=== PATIENT | female | born 1950 | race Caucasian/White ===

== ENCOUNTER → 2019-12-13 14:37 | Outpatient (BNVA) | payer MEDICARE, OTHER, SELFPAY | PROVIDERS: Family Provider Family Medicine; PCP Family Medicine; Visit Provider Specialist | DX: G62.9 Polyneuropathy, unspecified (principal) | CPT/HCPCS: 99213 ==

== ENCOUNTER 2020-01-18 13:41 | Outpatient (CLI) | payer MEDICARE, OTHER, SELFPAY ==
--- NOTE | 2020-01-18 13:55 | XR_ITS ---
WS: [id number] CHEST 2 VIEWS HISTORY: COUGH COMPARISON: 11/24/2013 Lungs: Lung volumes are slightly decreased. There is very slight thickening of the interstitium consi stent with vascular congestion which is new since the prior study. No pneumonia. No pleural effusion. Cardiac size: Normal. Mediastinum/Aorta: Mild atherosclerosis aorta. Bones: Slight increase in thoracic kyphosis. XR/XR chest 2V* [id number] IMPRESSION: Very slight increase in interstitial edema since the prior study.
== END 2020-01-18 13:42 | disposition home or self-care (01) ==
LOC: RADWPI 13:45
PROVIDERS: Family Provider Family Medicine; PCP Family Medicine; Visit Provider Family Medicine
DX: R05 Cough (principal)
CPT/HCPCS: 71046

== ENCOUNTER 2020-02-08 09:48 | Outpatient (CLI) | payer MEDICARE, OTHER, SELFPAY ==
--- NOTE | 2020-02-08 | USCV_ITS ---
Sara Joiner Age: 69 Gender: F : 1950 Exam Date: 02/08/2020 10:16 Ordering Phys: Agnes Alfaro MD Technologist: Mohit Brice Exam Location: [facility] [place] Indication: EDEMA BP: 147 / 80 HR: 89 Rhythm: Sinus Technical Quality: Adequate MEASUREMENTS (Male / Female) Normal Values 2D ECHO LV Diastolic Diameter PLAX 3.3 cm 4.2 - 5.9 / 3.9 - 5.3 cm LV Systolic Diameter PLAX 2.4 cm IVS Diastolic Thickness 1.3 cm 0.6 - 1.0 / 0.6 - 0.9 cm IVS Systolic Thickness 1.7 cm LVPW Diastolic Thickness 1.1 cm 0.6 - 1.0 / 0.6 - 0.9 cm LVPW Systolic Thickness 1.7 cm LVOT Diameter 2.0 cm LV Ejection Fraction 2D Teich 56.4 % LV Ejection Fraction MOD 2C 82.3 % LV Ejection Fraction 2C AL 82.8 % LA Diameter 4.3 cm LA Width 3.1 cm LA Height 4.3 cm RA Width 3.5 cm RA Height 3.7 cm Aorta at Sinotubular Diameter 2.4 cm M-MODE LV Diastolic Diameter MM 4.3 cm 4.2 - 5.9 / 3.9 - 5.3 cm LV Systolic Diameter MM 2.6 cm LV Ejection Fraction MM Teich 70.4 % IVS Diastolic Thickness MM 1.1 cm 0.6 - 1.0 / 0.6 - 0.9 cm IVS Systolic Thickness MM 2.0 cm LVPW Diastolic Thickness MM 1.1 cm 0.6 - 1.0 / 0.6 - 0.9 cm LVPW Systolic Thickness MM 1.8 cm RV Diastolic Diameter MM 1.1 cm Aortic Annulus Diameter 3.1 cm LA Ao Ratio MM 1.4 MV E Point Septal Separation 0.5 cm DOPPLER AV Peak Velocity 155.0 cm/s LVOT Peak Velocity 147.0 cm/s AV Area Cont Eq vti 3.1 cm squared AV Area Cont Eq pk 2.9 cm squared MV Area PHT 5.0 cm squared Mitral E to A Ratio 0.9 MV E' Velocity 10.0 cm/s Mitral E to MV E' Ratio 16.3 Mitral E to LV E' Lateral Ratio 13.1 Mitral E to LV E' Septal Ratio 21.8 TR Peak Velocity 121.0 cm/s TR Peak Gradient 5.9 mmHg TV Peak E Velocity 88.0 cm/s Right Atrial Pressure 3.0 mmHg Pulmonary Artery Systolic Pressu 8.9 mmHg FINDINGS Left Ventricle Normal left ventricular size, systolic function and wall thickness, with no regional wall motion abnormalities. Grade I/IV diastolic dysfunction (abnormal relaxation filling pattern), normal to mildly elevated filling pressures. Left ventricular ejection fraction is estimated at 65%. Right Ventricle Normal right ventricular size and systolic function. Normal right ventricular systolic pressure. Right Atrium The right atrium is normal in size. Left Atrium Mildly increased left atrial size. Mitral Valve Structurally normal mitral valve without significant stenosis or prolapse. There is no mitral regurgitation. Aortic Valve Structurally normal aortic valve without significant sclerosis or stenosis. There is no aortic regurgitation. Tricuspid Valve Structurally normal tricuspid valve without significant stenosis or regurgitation. Pulmonary artery systolic pressure is normal. Pulmonic Valve Pulmonic valve not well visualized. Pericardium Normal pericardium without effusion. Aorta Normal ascending aorta dimension. CONCLUSIONS Normal left ventricular size, systolic function and wall thickness, with no regional wall motion abnormalities. Grade I/IV diastolic dysfunction (abnormal relaxation filling pattern), normal to mildly elevated filling pressures. Left ventricular ejection fraction is estimated at 65%. Mildly increased left atrial size. No change from the previous echo done 09/04/2014 Dr. Saúl Carballo MD (Electronically Signed) Final Date: 08 Feb 2020 11:56 S
== END 2020-02-08 09:49 | disposition home or self-care (01) ==
LOC: RAD 09:52
PROVIDERS: PCP Family Medicine; Visit Provider Family Medicine
DX: I51.81 Takotsubo syndrome (principal); R60.9 Edema, unspecified; R05 Cough
CPT/HCPCS: 93306

== ENCOUNTER 2020-02-21 12:58 | Outpatient (CLI) | payer MEDICARE, OTHER, SELFPAY ==
--- NOTE | 2020-02-21 13:32 | XR_ITS ---
WS: [id number] KNEE LEFT TECHNIQUE: 3 views of the left knee CLINICAL INFORMATION: PAIN IN LEFT KNEE COMPARISON: None. FINDINGS: Normal anatomic alignment. Mild joint space narrowing medial joint compartment. Hypertrophic changes along the joint line. Mild soft tissue edema. Moderate narrowing at the patellofemoral articulation. Small suprapatellar effusion.. XR/XR knee LT 3V* [id number] IMPRESSION: Mild to moderate degenerative arthritis worse involving the medial joint compar tment and patellofemoral articulation.
== END 2020-02-21 12:59 | disposition home or self-care (01) ==
LOC: RAD 13:04
PROVIDERS: Family Provider Family Medicine; PCP Family Medicine; Visit Provider Family Medicine
DX: M25.562 Pain in left knee (principal); M17.12 Unilateral primary osteoarthritis, left knee
CPT/HCPCS: 73562

== ENCOUNTER → 2020-03-20 13:09 | Outpatient (BNVA) | payer MEDICARE, SELFPAY | PROVIDERS: Family Provider Family Medicine; PCP Family Medicine; Visit Provider Specialist | DX: G62.9 Polyneuropathy, unspecified (principal) | CPT/HCPCS: 99213 ==

== ENCOUNTER 2020-07-16 12:02 | Outpatient (CLI) | payer MEDICARE, SELFPAY ==
--- NOTE | 2020-07-16 12:09 | MM_ITS ---
WS: [id number] BILATERAL DIGITAL DIAGNOSTIC MAMMOGRAM MAMMOGRAPHY WITH CAD CLINICAL INFORMATION: HX OF BREAST CA COMPARISON: TECHNIQUE: Bilateral CC, MLO, and ML views. FINDINGS: Scattered fibroglandular densities bilaterally. Prior postoperative changes lumpectomy with parenchym al fibrosis central posterior right breast. This is unchanged in appearance. Associated dystrophic ca lcifications at the lumpectomy site. New punctate calcifications along the posterior margin of the lumpectomy site right breast. This appe ars new from the prior examinations. Recommend spot compression magnification views. Left breast is u nremarkable and unchanged. MM/[place] [id number] IMPRESSION: BI-RADS: 0-Incomplete: Need additional imaging evaluation FOLLOW UP: Need Additional Imaging RECOMMEND SPOT COMPRESSION MAGNIFICATION VIEWS RIGHT BREAST
== END 2020-07-16 12:03 | disposition home or self-care (01) ==
LOC: RADSHAW 12:07
PROVIDERS: PCP Family Medicine; Visit Provider Family Medicine
DX: Z85.3 Personal history of malignant neoplasm of breast (principal); R92.1 Mammographic calcification found on diagnostic imaging of breast
CPT/HCPCS: 77066

== ENCOUNTER 2020-07-17 06:03 | Outpatient (CLI) | payer MEDICARE, SELFPAY ==
--- NOTE | 2020-07-21 13:30 | ONC FU_ITS ---
Dr. Luna Patient Follow-Up Note Patient: Sara Joiner Unit #: [id number]: 1950 Dicatated By: Ozzie Luna M.D.Date of Visit:Jul 17, 2020 Onc Med Follow-up/Prog Note Chief Complaint: Breast cancer. History of Present Illness: This is a 70 year-old woman with grade 2 infiltrating ductal carcinoma of the right breast, stage IA (T1c, N0, M0), ER/MS positive and HER-2/steve also positive by IHC (3+). She presented with abonormal routine screening mammogram from 08/19/2013. An ultrasound-guided biopsy showed a high-grade infiltrating ductal carcinoma, ER positive at 100% and MS positive at 89%. HER-2/steve was 3+ by IHC, FISH only 1.3. On 11/04/2013 she underwent lumpectomy and axillary sentinel lymph node biopsy by Dr. Bro. Her surgical pathology showed grade 2 infiltrating ductal carcinoma measuring 1.6 x 1.3 cm, with lymphovascular invasion; anterior margins were positive. Two sentinel lymph nodes were negative for metastatic disease. On 11/11/2013 she had a re-resection with no additional tumor identified. Her staging bone scan on 11/18/2013 was negative. She received 6 cycles of adjuvant systemic chemotherapy with Taxotere, Carboplatin and Herceptin from 12/05/2013 to 03/20/2014. Her treatment was complicated with significant asthenia, worsening arthralgias, grade 1-2 peripheral neuropathy, and peripheral edema. For onycholysis she underwent surgical nail removal. She continued on Herceptin alone on 03/27/2014, and she also began adjuvant hormonal therapy with anastrozole. Adjuvant radiation treatment to the breast to 5940 cGy was completed on 06/02/2014. On 04/08/2014 she had syncopal episode while at work. MRI of the brain on 04/18/2014 showed calcified extra-axial lesion, possibly representing meningioma or dural vascular malformation. She established care with Dr. Hightower, neurosurgeon. Echocardiogram on 09/04/14 showed EF 72%. She underwent bilateral breast plastic surgery reconstruction on 04/10/2015 with the right mastoplexy and the left mastoplasty. Pathology was benign. She completed her full year of Herceptin therapy on 11/13/2014. I had seen her for a follow-up visit on 05/06/2016. At that time she was having significant musculoskeletal pain and fatigue, and I did have her stop the Arimidex. As her symptoms did not improve significantly, she restarted it in June 2016. During her subsequent follow-up, she was able to tolerate it with acceptable toxicity. She stopped Arimidex again in May 2019, as she had completed 5 years of treatment. Her other medical illnesses include degenerative arthritis, fibromyalgia, and psoriasis. She has a history of colonic polyps. She is a nonsmoker. INTERIM HISTORY: She is seen for a followup visit. She has been feeling pretty good generally. Her main complaint is that she had fallen out of bed 8 weeks ago and she had subsequently developed redness in both legs. She says her energy is not like it should be, but she is able to do light work. ECOG score is 1. She has good appetite. She has not had fever. She does have some night sweating. She is kind of short of breath, and she has nonproductive cough. She occasionally has fluttering in her heart. Her stomach sometimes feels queasy. She has no other GI complaints. She has urinary frequency with some urgency/incontinence. She reports having catches in her neck. She also has had a burning feeling in her right lower leg. She has persistent numbness/tingling in her hands. Medications: Aspirin 1 Tablet (of 81 mg) Tablet, enteric coated Oral daily, B Complex 1 Tablet Oral daily, busPIRone HCl 1 Tablet (of 10 mg) Oral b.i.d., Calcium + D 1 (600-400 mg - Units) Tablet Oral b.i.d., Cranberry 1 Tablet Capsule Oral daily, Cymbalta 2 Capsule (of 60 mg) Capsule Delayed Release Particles Oral daily, Fiber 1 Tablet Capsule Oral daily, Furosemide 1 Tablet (of 20 mg) Oral daily, Gabapentin 1 (300 mg) Tablet Oral four times a day, Glucosamine Chondr 1500 Complx Capsule Oral daily, Klor-Con 10 1 Tablet (of 10 meq) Tablet, controlled release Oral b.i.d., MagOx 400 1 (400 (241.3 mg) mg) Tablet Oral b.i.d., MiraLax Pack Take 1 Oral daily, Multivitamin Adult 1 Tablet Oral daily, Naproxen 1 Tablet (of 500 mg) Oral b.i.d., Rochelle 3 1 Capsule Oral daily, tiZANidine HCl 1 Tablet (of 2 mg) Oral at bedtime, TraMADol HCl 2 (50 mg) Tablet Oral t.i.d. PRN, Triamcinolone Acetonide 1 (0.1 %) Cream Topical PRN Allergies: No Known Allergies. Review of Systems: Constitutional - Her energy is not like it should be, but she is able to do light work at home. Her appetite is good. She has not had fever. She sometimes has sweating at night. ECOG score is 1, ENMT - She has sinus congestion/drainage. No mouth sores. No sore throat or difficulty swallowing, Hematologic/Lymphatic - No abnormal bruising or bleeding, Respiratory - She has kind of short of breath at times, and she has nonproductive cough. No pleuritic pain or hemoptysis, Cardiovascular - No angina pain. She occasionally has heart fluttering, Gastrointestinal - She does not have nausea, but she sometimes feels queasy. No heartburn or acid reflux. No diarrhea or constipation. No blood in the stool or black stools, Genitourinary (F) - No dysuria or hematuria. She has urinary frequency with some urgency/incontinence, Musculoskeletal - She has catches in her neck she also reports having a burning feeling in her lower right leg, Integumentary - She has developed red spots on both legs, Neurologic - No headache or dizziness. She has some numbness in her hands. No other focal neurologic symptoms, Psychiatric - No anxiety or depression. No insomnia. Vital Signs: Performed on Jul 17, 2020 14:12 Height - 65.00 in Weight - 220.2 lbs (HIGH) BSA - 2.06 sq.m BMI - 36.64 (HIGH) Temperature - 98.5 F Pulse - 93 /min Respiration - 24 /min BP - 197/69 mm(hg) (HIGH) O2 Sat - 97 % Pain - 0 Physical Examination: Constitutional - She looks pretty good generally, Eyes - Sclerae nonicteric. Conjunctivae clear, ENMT - No lesions noted in the oral cavity, Hematologic/Lymphatic - No cervical, clavicular, or axillary adenopathy, Respiratory - Lungs sound clear. She has good air movement bilaterally, Cardiovascular - Heart rhythm is regular. There is no murmur, gallop, or rub noted, Abdomen - Soft. Liver and spleen are not enlarged. There is no abdominal mass or ascites noted and there is no inguinal adenopathy, Extremities - Trace edema. Dorsalis pedis pulses are palpable bilaterally, Integumentary - There is mild erythema in the lower anterior tibial area bilaterally, more prominent on the right. There are 2 small, slightly raised and palpable erythematous lesions in the right mid to upper anterior tibial area. The appearance is consistent with an inflammatory process, Neurologic - No focal neurologic deficits noted. Impression: 1. Patient with grade 2 infiltrating ductal carcinoma the right breast, stage IA (T1c, N0, M0), ER/MS positive and HER-2/steve positive by IHC. Her initial treatment included lumpectomy with axillary sentinel lymph node biopsy on 11/04/2013 followed by a negative reexcision lumpectomy on 11/11/2013. 2. She was then given adjuvant chemotherapy with 6 cycles of TCH, completed in March 2014. She then completed a full 52 weeks of Herceptin therapy. 3. She completed adjuvant radiation to the right breast on 06/02/2014, and she also began adjuvant hormonal therapy with anastrozole. It was stopped in May 2019 after completing 5 years of treatment. 4. She underwent bilateral breast plastic surgery reconstruction on 04/10/2015. Her other medical illnesses include: 5. Degenerative arthritis and fibromyalgia with chronic pain. 6. Psoriasis. During her follow-up she has continued to have some chronic fatigue. Recently she has had some redness in both legs, and she also has 2 inflammatory appearing lesions in the mid to upper anterior tibial area on the right. Overall, though, she appears to be doing well clinically with no evidence of recurrence of the breast cancer. Plan: She remains on observation/expectant management for the breast cancer. She will be given Augmentin 875 mg twice daily for 7 days what appears to be some cellulitis in her legs. I will see her again in 1 year, or sooner as needed. Signed By: Ozzie Luna M.D. <<Signature on File>>
== END 2020-07-17 06:04 | disposition home or self-care (01) ==
LOC: ONCMED 06:05
PROVIDERS: PCP Family Medicine; Visit Provider Internal Medicine Medical Oncology
DX: Z08 Encounter for follow-up examination after completed treatment for malignant neoplasm (principal); Z85.3 Personal history of malignant neoplasm of breast; M19.90 Unspecified osteoarthritis, unspecified site; M79.7 Fibromyalgia; G89.29 Other chronic pain; L40.9 Psoriasis, unspecified; Z92.3 Personal history of irradiation; R53.82 Chronic fatigue, unspecified
CPT/HCPCS: G0463

== ENCOUNTER 2020-08-02 13:02 | Outpatient (CLI) | payer MEDICARE, SELFPAY ==
--- NOTE | 2020-08-02 11:30 | MM_ITS ---
WS: [id number] RIGHT DIGITAL MAMMOGRAPHY WITH CAD CLINICAL INFORMATION: New calcification along posterior margin of lumpectomy RT COMPARISON: July 16, 2020 and TECHNIQUE: 3 views of the right breast were obtained. FINDINGS: Scattered fibroglandular densities of the right breast. Prior postoperative changes lumpectomy with p arenchymal fibrosis central right breast is unchanged. Punctate and lucent centered calcifications. B enign fat necrosis. Punctate calcifications along the posterior margin of the lumpectomy site have a benign punctate and lucent centered appearance. Recommend return to annual diagnostic mammography MM/[place] [id number] IMPRESSION: BI-RADS: 2-Benign FOLLOW UP: 1 Year Follow-up Recommend return to annual diagnostic mammography.
== END 2020-08-02 13:03 | disposition home or self-care (01) ==
LOC: RADSHAW 13:06
PROVIDERS: PCP Family Medicine; Visit Provider Family Medicine
DX: R92.8 Other abnormal and inconclusive findings on diagnostic imaging of breast (principal)
CPT/HCPCS: 77065

== ENCOUNTER 2020-11-22 10:57 | Observation (INO) | payer MEDICARE, SELFPAY ==
[2020-11-22] VITALS (10 sets, daily range): BP systolic 153–224; BP diastolic 83–118; PULSE 71–105; RESP 17–24; TEMP 36.2–36.6; O2SAT 93–97; BMI 36.7
--- NOTE | 2020-11-22 11:30 | ECG_ITS ---
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 Measurements Intervals [place] Rate: 85 P: 79 PA: 164 QRS: 16 QRSD: 89 T: 83 QT: 376 QTc: 449 Interpretive Statements SINUS RHYTHM Compared to ECG 06/10/2018 09:30:07 No significant changes Electronically Signed On 11-22-2020 17:13:34 INSPECTION ENGINEER by Tal Riojas M.D. [id number]
--- NOTE | 2020-11-22 11:30 | CT_ITS ---
WS: [id number] CT HEAD TECHNIQUE: Noncontrast CT of the head obtained from the skullbase to the vertex. CLINICAL INFORMATION: Symptoms of Acute Stroke COMPARISON: 01 23,017 DLP: 954.[address] scans at [facility] use at least one of these dose optimization techniques: automat ed exposure control; mA and/or kV adjustment per patient size (includes targeted exams where dose is matched to clinical indication); or iterative reconstruction. FINDINGS: No evidence of intracranial hemorrhage or mass effect. Ventricular system and basal cisterns are nt. Mild small vessel changes with mild parenchymal volume loss. No extra-axial fluid collections. No rmal mehta-white differentiation. Stable right middle cranial fossa meningioma measuring 1.7 x 0.5 cm is unchanged. Paranasal sinuses and mastoid air cells are well aerated. .Normal visualized soft tissues. CT/CT head wo con* [id number] IMPRESSION: 1. No evidence of intracranial hemorrhage or mass effect. 2. Mild small vessel changes. Mild parenchymal volume loss. 3. Stable calcified right middle cranial fossa meningioma is unchanged. 4. No acute intracranial findings. Notified Juliann Joiner MD at 11/22/2020 12:24 PM.
--- NOTE | 2020-11-22 11:36 | W.ED.NEUROSD ---
HPI - Neuro Symptoms/Deficit General: Chief Complaint: Neuro Symptoms/Deficit Stated Complaint: Lt side Numbness Time Seen by Provider: 11/22/20 11:11 Source: patient Mode of arrival: ambulatory Limitations: no limitations History of Present Illness: HPI Narrative: 70-year-old female with no prior history of stroke developed left sided numbness and weakness suddenly around 7 AM this morning?mainly the left side of her face, her left leg. She got up to go to the bathroom to look at her face, felt like her left leg was not moving properly, but she did not fall. She looked in the mirror and did not notice any drooping. The symptoms then went away after a few minutes. Later about an hour before arriving at the ED she developed symptoms again, this time with dizziness as well. No visual change. No nausea or vomiting. Currently she is describing paresthesias of her left leg and arm. No headache. Her blood pressure is much higher than usual. No recent medication changes. She does have a history of peripheral neuropathy from chemotherapy. Onset (ago): hour(s) Associated symptoms: Deny chest pain, headache(s), nausea or vomiting Review of Systems Const: Denies: fever(s), chills, body aches, change in appetite or change in weight Eyes: Denies: change in vision, blurry vision or blind spots ENMT: Denies: nasal congestion Card: Denies: chest pain, palpitations or irregular heart rhythm Resp: Denies: dyspnea, productive cough or non-productive cough GI: Denies: abdominal pain, nausea or vomiting : Denies: difficulty voiding, dysuria or urinary frequency Musc: Reports: joint pain, joint stiffness, limited range of motion and muscle weakness; Denies: neck pain, back pain, extremity pain or extremity swelling Skin/Breast: Reports: rash, pruritus and erythema Neuro: Reports: numbness in extremities, weakness in extremities, difficulty walking and dizziness; Denies: headache(s), frequent falls, confusion, behavioral changes, Slurred speech present, difficulty communicating thoughts or restless legs [facility] PFSH: Medical History (Updated 11/22/20 @ 14:40 by Juliann Joiner MD) Depression Dyspnea History of breast cancer Peripheral edema Peripheral neuropathy Radiation fibrosis Surgical History (Updated 11/22/20 @ 14:34 by Aneesh Styles MD) History of breast surgery History of lumpectomy History of tonsillectomy Family History Other Cancer Diabetes Hypertension Stroke Denies family history of CAD (coronary artery disease) Social History (Updated 11/22/20 @ 14:34 by Aneesh Styles MD) Smoking and tobacco status: never smoked Alcohol intake: current Alcohol intake frequency: holidays/special occasions only Substance/Drug Use: never Housing: House History of recent travel: No NIH stroke score NIHSS: Level Of Consciousness - 1a: 0 Level Of Consciousness Questions - 1b: Both Correct Level Of Consciousness Commands - 1c: Both Correct Best Gaze - 2: Normal Visual [place] - 3: No Visual Loss Facial Palsy - 4: Normal Motor Arm Right - 5: No Drift Motor Arm Left - 5: No Drift Motor Leg Right - 6: No Drift Motor Leg Left - 6: No Drift Limb Ataxia - 7: Absent Sensory - 8: Mild To Moderate Loss Best Language - 9: No Aphasia Dysarthia - 10: Normal Extinction And Inattention - 11: 0 Score: Total Score: 1 Physical Exam Const: COMMON NORMALS: no acute distress, patient oriented x3 and alert EXAM LIMITATIONS: altered mental status GENERAL APPEARANCE: cooperative, comfortable and anxious; not in distress and not ill appearing ORIENTATION/CONSCIOUSNESS: Yes awake, Yes oriented to person and Yes oriented to place HENMT: COMMON NORMALS: normocephalic and atraumatic HEAD & SCALP: normocephalic and atraumatic FACE & SINUS: normal facial exam Eye: COMMON NORMALS: Equal, round and reactive pupils present, EOMs intact bilaterally, conjunctivae normal and no scleral icterus GENERAL EYE: appearance normal, both eyes and all related structures ALIGNMENT: Yes alignment normal PERIORBITAL: periorbital findings normal CONJUNCTIVA: Yes conjunctivae normal PUPIL: Yes Equal, round and reactive pupils present Neck/C-Spine: COMMON NORMALS: full ROM, no lymphadenopathy and supple Lymph: LYMPHATIC: no lymphadenopathy noted Resp: COMMON NORMALS: normal respiratory effort, No retractions and No use of accessory muscles EFFORT & INSPECTION: Yes able to speak in complete sentences Cardio: COMMON NORMALS: regular rate, regular rhythm, S1 normal heart sound present and S2 normal heart sound present RATE: regular rate RHYTHM: regular rhythm HEART SOUNDS: S1 normal heart sound present and S2 normal heart sound present GI: COMMON NORMALS: Normal to inspection, nondistended, normoactive bowel sounds present, Soft to palpation and non-tender AUSCULTATION: Yes normoactive bowel sounds PALPATION: Yes Soft to palpation Neuro: COMMON NORMALS: patient oriented x3, CN's II-XII intact bilaterally, moves all extremities and no focal motor deficits SENSORIUM/ORIENTATION: Yes alert, Yes oriented to person and Yes oriented to place COORDINATION/BALANCE: [id number] test normal SPEECH: speech normal COORDINATION: [id number] test normal Psych: COMMON NORMALS: mental status grossly normal, Normal thought process present, cooperative, normal affect and speech normal SPEECH: Yes normal speech THOUGHT PROCESS: Normal thought process present Course Vital Signs: Vital signs: Vital Signs Temperature 97.8 F 11/22/20 11:04 Pulse Rate 72 11/22/20 14:52 Respiratory Rate 20 H 11/22/20 14:52 Blood Pressure 169/104 11/22/20 14:52 Pulse Oximetry 96 11/22/20 14:52 MDM - Neuro Symptoms/Deficit MDM Narrative: Medical decision making narrative: 70-year-old female with acute onset left facial and extremity sensory and motor changes this morning at 7 AM, mostly resolved by the time of presentation. Hypertensive 213/113, heart rate [address] head negative for any acute hemorrhage or mass. Full dose aspirin 325 mg administered. CBC and chemistry normal. UA clear CTA head and neck negative for any clinically significant occlusive disease. Consulted with Dr. Goodwin, stroke neurologist at [facility], who evaluated the patient as well. He recommends admission for basic TIA work-up, including an MRI because of her history of breast cancer. Permissive hypertension?SBP up to 220 acceptable over the next 24 to 48 hours. Discussed the case with , who accepts the admission for TIA work-up. Differential Diagnosis: Neuro Differential Diagnosis: Likely peripheral neuropathy, cerebrovascular accident, multiple sclerosis and transient cerebral ischemia Medical Records: Attestation: I reviewed the patient's medical records. Lab Data: Attestation: I reviewed the patient's lab results. Labs: Lab Results 11/22/20 11/22/20 11/22/20 Range/Units 11:17 11:17 11:17 WBC 7.8 (4.0-10.0) 10^3/ uL RBC 5.18 (4.1-5.3) 10^6/u L Hgb 15.2 (11.5-15.3) g/dL Hct 46.2 (37.0-47.0) % MCV 89.2 (81-99) fL MCH 29.3 (28.0-34.0) pg MCHC 32.9 (30.0-36.0) g/dL RDW 13.4 (12.1-15.1) % Plt Count 327 (130-400) 10^3/c mm MPV 8.8 (7.4-10.4) fL Neut % (Auto) 62.8 % Lymph % (Auto) 23.8 % [place] % (Auto) 7.7 % Eos % (Auto) 4.5 % Baso % (Auto) 1.1 % Neut # (Auto) 4.92 (1.8-7.7) 10^3/u L Lymph # (Auto) 1.9 (0.8-4.8) 10^3/u L [place] # (Auto) 0.6 (0.2-0.9) 10^3/u L Eos # (Auto) 0.4 (0.0-0.8) 10^3/u L Baso # (Auto) 0.1 (0.0-0.1) 10^3/u L Nucleated RBC % (a uto) 0 % Nucleated RBCs # 0.0 /100WBC PT 13.50 (12.1-14.9) SECO NDS INR 1.00 (0.8-1.2) APTT 28.1 (23.9-36.7) SECO NDS Sodium 140 (136-145) mmol/L Potassium 4.0 (3.5-5.1) mmol/L Chloride 103 (98-107) mmol/L Carbon Dioxide 29 (22-29) mmol/L Anion Gap 12.0 (5-19) BUN 22 (8-23) mg/dL Creatinine 0.8 (0.5-0.9) mg/dL GFR Calculation 71.3 L (90-130) mL/min Glucose 95 (65-115) mg/dL POC Glucose (70-110) mg/dL Calculated Osmolal ity 293 (285-295) mOsm/k g Calcium 9.4 (8.5-10.5) mg/dL Magnesium 1.9 (1.7-2.3) mg/dL Total Bilirubin 0.3 (0.15-1.2) mg/dL AST 26 (0-32) U/L ALT 25 (0-33) U/L Alkaline Phosphata se 98 (35-105) IU/L Total Protein 7.5 (6.6-8.7) g/dL Albumin 4.3 (3.5-5.2) g/dL Globulin 3.2 (1.3-4.6) g/dL Urine Color (Yellow) Urine Appearance (CLEAR) Urine pH (5-7) Ur Specific Gravit y (1.005-1.030) Urine Protein (Negative) Urine Glucose (UA) (Normal) Urine Ketones (Negative) Urine Blood (Negative) Urine Nitrate (Negative) Urine Bilirubin (Negative) Urine Urobilinogen (Negative) mg/dL Ur Leukocyte Xena ase (Negative) 11/22/20 11/22/20 Range/Units 11:41 12:12 WBC (4.0-10.0) 10^3/ uL RBC (4.1-5.3) 10^6/u L Hgb (11.5-15.3) g/dL Hct (37.0-47.0) % MCV (81-99) fL MCH (28.0-34.0) pg MCHC (30.0-36.0) g/dL RDW (12.1-15.1) % Plt Count (130-400) 10^3/c mm MPV (7.4-10.4) fL Neut % (Auto) % Lymph % (Auto) % [place] % (Auto) % Eos % (Auto) % Baso % (Auto) % Neut # (Auto) (1.8-7.7) 10^3/u L Lymph # (Auto) (0.8-4.8) 10^3/u L [place] # (Auto) (0.2-0.9) 10^3/u L Eos # (Auto) (0.0-0.8) 10^3/u L Baso # (Auto) (0.0-0.1) 10^3/u L Nucleated RBC % (a uto) % Nucleated RBCs # /100WBC PT (12.1-14.9) SECO NDS INR (0.8-1.2) APTT (23.9-36.7) SECO NDS Sodium (136-145) mmol/L Potassium (3.5-5.1) mmol/L Chloride (98-107) mmol/L Carbon Dioxide (22-29) mmol/L Anion Gap (5-19) BUN (8-23) mg/dL Creatinine (0.5-0.9) mg/dL GFR Calculation (90-130) mL/min Glucose (65-115) mg/dL POC Glucose 124 H (70-110) mg/dL Calculated Osmolal ity (285-295) mOsm/k g Calcium (8.5-10.5) mg/dL Magnesium (1.7-2.3) mg/dL Total Bilirubin (0.15-1.2) mg/dL AST (0-32) U/L ALT (0-33) U/L Alkaline Phosphata se (35-105) IU/L Total Protein (6.6-8.7) g/dL Albumin (3.5-5.2) g/dL Globulin (1.3-4.6) g/dL Urine Color Yellow (Yellow) Urine Appearance Clear (CLEAR) Urine pH 5 (5-7) Ur Specific Gravit y 1.015 (1.005-1.030) Urine Protein Neg (Negative) Urine Glucose (UA) Norm (Normal) Urine Ketones Negative (Negative) Urine Blood Neg (Negative) Urine Nitrate Negative (Negative) Urine Bilirubin Neg (Negative) Urine Urobilinogen Norm (Negative) mg/dL Ur Leukocyte Xena ase Negative (Negative) Discharge Plan Discharge Patient Disposition: Admitted As Inpatient Admit Provider: Aneesh Styles Clinical Impression: TIA (transient ischemic attack), Hypertensive urgency Condition: Stable Coding Level of Care Code ED Chemical Instrumentation Officer for Chg Fwd Exam Comprehensive
[2020-11-22 11:41] LABS: Basophils # 0.1 10^3/uL (0.0-0.1); Basophils % 1.1 %; Eosinophils # 0.4 10^3/uL (0.0-0.8); Eosinophils % 4.5 %; Hematocrit 46.2 % (37.0-47.0); Hemoglobin 15.2 g/dL (11.5-15.3); Lymphocytes # 1.9 10^3/uL (0.8-4.8); Lymphocytes % 23.8 %; Mean Corpuscular HGB Conc 32.9 g/dL (30.0-36.0); Mean Corpuscular Hemoglobin 29.3 pg (28.0-34.0); Mean Corpuscular Volume 89.2 fL (81-99); Mean Platelet Volume 8.8 fL (7.4-10.4); Monocytes # 0.6 10^3/uL (0.2-0.9); Monocytes % 7.7 %; Neutrophils # 4.92 10^3/uL (1.8-7.7); Neutrophils % 62.8 %; Nucleated Red Blood Cells % 0 %; Platelet Count 327 10^3/cmm (130-400); Red Blood Count 5.18 10^6/uL (4.1-5.3); Red Cell Distribution Width 13.4 % (12.1-15.1); White Blood Count 7.8 10^3/uL (4.0-10.0)
[2020-11-22 11:45] LABS: Glucose Point of Care 124 mg/dL (70-110)
[2020-11-22 11:48] LABS: Partial Thromboplastin Time 28.1 SECONDS (23.9-36.7)
[2020-11-22 11:52] LABS: Alanine Aminotransferase 25 U/L (0-33); Albumin Level 4.3 g/dL (3.5-5.2); Alkaline Phosphatase 98 IU/L (35-105); Aspartate Amino Transferase 26 U/L (0-32); Blood Urea Nitrogen 22 mg/dL (8-23); Calcium 9.4 mg/dL (8.5-10.5); Carbon Dioxide 29 mmol/L (22-29); Chloride 103 mmol/L (98-107); Globulin 3.2 g/dL (1.3-4.6); Glomerular Filtration Rate 71.3 mL/min (90-130); Glucose 95 mg/dL (65-115); Magnesium 1.9 mg/dL (1.7-2.3); Osmolality Calculated 293 mOsm/kg (285-295); Sodium 140 mmol/L (136-145); Total Bilirubin 0.3 mg/dL (0.15-1.2); Total Protein 7.5 g/dL (6.6-8.7)
[2020-11-22 12:16] LABS: Add Urine Microscopic? NO
[2020-11-22 12:31] LABS: Bilirubin Urine Neg (Negative); Blood Urine Neg (Negative); Glucose Urine UA Norm (Normal); Ketones Urine Negative (Negative); Leukocyte Esterase Urine Negative (Negative); Nitrate Urine Negative (Negative); Protein Urine Neg (Negative); Specific Gravity, Urine 1.015 (1.005-1.030); Urine Appearance Clear (CLEAR); Urine Color Yellow (Yellow); Urobilinogen Urine Norm (Negative); pH Urine 5 (5-7)
--- NOTE | 2020-11-22 12:33 | CT_ITS ---
WS: [id number] CTA HEAD AND NECK TECHNIQUE: Contrast enhanced CTA of the head and neck with coronal and sagittal reformatted images an d maximum intensity projection (MIP) images. NASCET criteria utilized. CLINICAL INFORMATION: paresthesia/TIA COMPARISON: None. DLP: 2275.[address] scans at [facility] use at least one of these dose optimization techniques: automat ed exposure control; mA and/or kV adjustment per patient size (includes targeted exams where dose is matched to clinical indication); or iterative reconstruction. FINDINGS: RIGHT: Right common carotid artery is patent. Mild calcified atheromatous disease right carotid bulb extending into the ICA. No significant right ICA stenosis. Right ICA is patent to the skull base. LEFT: Left common carotid artery is patent. Mild calcified atheromatous disease left carotid bulb ext ending into the ICA. Less than 50% left ICA stenosis. Left ICA is patent to the skull base. INTRACRANIAL CTA: Codominant and patent vertebral arteries bilaterally. Basilar artery is patent. Normal vascularity to the [place] territory bilaterally. Both ICAs are patent at the skull base. Normal vascularity to the GUY and MCA territories bilaterally . No evidence of high-grade proximal flow limiting stenosis. Calcified right middle cranial fossa men ingioma. CT/CT angio headneck* [id number] IMPRESSION: 1. Less than 50% cervical ICA stenosis bilaterally. 2. No flow-limiting intracranial or high-grade proximal stenosis. 3. Codominant and patent vertebral arteries bilaterally. 4. Multinodular thyroid. Notified Juliann Joiner MD at 11/22/2020 1:06 PM.
[2020-11-22] MEDS: iohexol 350 mg/mL 100 mL Btl IV (12:48)
[2020-11-22] MEDS: aspirin 325 mg Tablet PO (13:26)
--- NOTE | 2020-11-22 14:00 | PC.NURSE ---
Telestroke completed with [facility]. Physician from [facility] reported to patient that we will not be giving anything for her BP at this time to ensure that it does not cause her to have any worsening symptoms. Physician reported that he may try to decrease her BP after 24 hours with improvement of all symptoms.
--- NOTE | 2020-11-22 14:16 | USCV_ITS ---
Sara Joiner Age: 70 Gender: F : 1950 Exam Date: 11/22/2020 16:40 Ordering Phys: Juliann Joiner MD Technologist: Katherine Jean Baptiste Exam Location: [facility] – [place] Indication: tia workup BP: / HR: 70 Rhythm: Sinus Technical Quality: Adequate MEASUREMENTS (Male / Female) Normal Values 2D ECHO LV Diastolic Diameter PLAX 3.5 cm 4.2 - 5.9 / 3.9 - 5.3 cm LV Systolic Diameter PLAX 2.5 cm LV Chamber Size 2.3 cm IVS Diastolic Thickness 1.5 cm 0.6 - 1.0 / 0.6 - 0.9 cm IVS Systolic Thickness 1.5 cm LVPW Diastolic Thickness 2.0 cm 0.6 - 1.0 / 0.6 - 0.9 cm LVPW Systolic Thickness 1.9 cm RV Chamber Size 2.4 cm LVOT Diameter 2.0 cm LV Ejection Fraction 2D Teich 55.4 % LV Ejection Fraction MOD 2C 55.9 % LV Ejection Fraction 2C AL 56.2 % LA Diameter 3.3 cm LA Width 3.1 cm LA Height 4.5 cm RA Width 2.0 cm RA Height 3.8 cm Aorta at Sinotubular Diameter 2.4 cm M-MODE LV Diastolic Diameter MM 4.0 cm 4.2 - 5.9 / 3.9 - 5.3 cm LV Systolic Diameter MM 1.9 cm LV Ejection Fraction MM Teich 83.9 % IVS Diastolic Thickness MM 1.5 cm 0.6 - 1.0 / 0.6 - 0.9 cm IVS Systolic Thickness MM 1.9 cm LVPW Diastolic Thickness MM 1.0 cm 0.6 - 1.0 / 0.6 - 0.9 cm LVPW Systolic Thickness MM 1.9 cm Aortic Annulus Diameter 2.1 cm LA Ao Ratio MM 1.6 MV E Point Septal Separation 0.6 cm DOPPLER AV Peak Velocity 187.0 cm/s LVOT Peak Velocity 143.0 cm/s AV Area Cont Eq vti 2.9 cm squared AV Area Cont Eq pk 2.4 cm squared MV Area PHT 2.4 cm squared Mitral E to A Ratio 0.8 MV E' Velocity 61.5 cm/s Mitral E to MV E' Ratio 15.2 Mitral E to LV E' Lateral Ratio 15.2 Mitral E to LV E' Septal Ratio 15.2 TR Peak Velocity 186.3 cm/s TR Peak Gradient 13.9 mmHg TV Peak E Velocity 57.0 cm/s Right Atrial Pressure 3.0 mmHg Pulmonary Artery Systolic Pressu 16.9 mmHg PV Peak Velocity 91.0 cm/s RV Acceleration Time 0.1 s RV Ejection Time 0.4 s RV AcT/ET 0.4 FINDINGS Left Ventricle Normal left ventricular cavity size. Normal left ventricular systolic function. No regional wall motion abnormalities. Left ventricular ejection fraction is estimated at 65 %. Grade I/IV diastolic dysfunction (abnormal relaxation filling pattern), normal to mildly elevated filling pressures. Right Ventricle The right ventricle is normal in size and function. Right Atrium The right atrium is normal in size. Left Atrium The left atrium is normal in size. Mitral Valve Severely thickened mitral valve. Moderate mitral annular calcification. No mitral valve stenosis. No mitral valve regurgitation. Aortic Valve Moderate aortic valve calcification. No aortic valve stenosis. No aortic valve regurgitation. Tricuspid Valve Structurally normal tricuspid valve without significant stenosis or regurgitation. Pulmonary artery systolic pressure is normal. Pulmonic Valve Structurally normal pulmonic valve without significant stenosis. There is no pulmonic regurgitation. Pericardium Normal pericardium without effusion. Aorta Normal ascending aorta dimension. CONCLUSIONS 1-Normal left ventricular cavity size. Normal left ventricular systolic function. No regional wall motion abnormalities. Left ventricular ejection fraction is estimated at 65 %. Grade I/IV diastolic dysfunction (abnormal relaxation filling pattern), normal to mildly elevated filling pressures. 2-Moderate aortic valve calcification. No aortic valve stenosis. No aortic valve regurgitation. 3-Severely thickened mitral valve. Moderate mitral annular calcification. No mitral valve stenosis. No mitral valve regurgitation. 4-There is no pericardial effusion. 5-Pulmonary artery systolic pressure is within normal limits. 6-Right atrial pressure is around 5 mm of mercury. 7-No significant change since the prior echocardiogram study of 02/08/20. Aneesh Frost MD (Electronically Signed) Final Date: 22 November 2020 17:57 S
--- NOTE | 2020-11-22 14:28 | PM.HP ---
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 Patient is stating that today when he was having breakfast she noticed numbness and heaviness on left side of her face left arm and leg which resolved spontaneously however it reoccurred when she was helping out her friends at the [employer] today. Second episode was severe in intensity, it also caused some lightheadedness for which she needed to sit down in a chair to calm herself. She was not able to move her legs with intention at all. EMS brought to the hospital she was hypertensive 212/113 mmHg, NIH 1 her symptoms resolved CTA head and neck and CT head unremarkable neurologist recommended TIA work-up because of her history of breast cancer. CBC BMP unremarkable EKG showing sinus rhythm. Review of Systems Const: Denies: fever(s) or change in weight Eyes: Denies: change in vision ENMT: Denies: throat pain Card: Denies: chest pain Resp: Denies: dyspnea GI: Denies: abdominal pain : Denies: flank pain Musc: Denies: neck pain Skin/Breast: Denies: rash Neuro: Reports: headache(s), sensory changes and dizziness Psych: Denies: anxiety Endo: Denies: polyuria Keo/Lymph: Denies: easy bruising All/Imm: Denies: urticaria Medications/Allergies Home Medications Medication Instructions Recorded Confirmed Last Taken Type aspirin 81 mg tablet,delayed 81 mg PO DAILY@12/13/19 11/22/20 11/22/20 History release buspirone 10 mg tablet 10 mg PO BID@12/13/19 11/22/20 11/22/20 History cholecalciferol (vitamin D3) 50 2,000 unit PO DAILY@12/13/19 11/22/20 11/22/20 History mcg (2,000 unit) capsule cranberry 400 mg capsule 400 mg PO DAILY@12/13/19 11/22/20 11/22/20 History krill oil 500 mg capsule 500 mg PO DAILY@08 12/13/19 11/22/20 11/22/20 History naproxen 500 mg tablet 500 mg PO BID PRN 12/13/19 11/22/20 11/22/20 History tramadol 50 mg tablet 100 mg PO TID PRN tab 12/13/19 11/22/20 11/22/20 History furosemide 20 mg tablet 20 mg PO DAILY@08 03/20/20 11/22/20 11/22/20 History potassium chloride 10 mEq 10 meq PO BID@03/20/20 11/22/20 11/22/20 History capsule,extended release tizanidine 2 mg capsule 2 mg PO DAILY PRN #30 cap 03/20/20 11/22/20 11/22/20 Rx Cymbalta 120 mg PO DAILY@11/22/20 11/22/20 11/22/20 History gabapentin 600 mg PO QID 11/22/20 11/22/20 11/22/20 History Allergies Allergy/AdvReac Type Severity Reaction Status Date / Time bupropion [From Wellbutrin] AdvReac muscle Verified 11/22/20 11:13 cramps PFSH Acute PFSH: Medical History Depression Dyspnea History of breast cancer Peripheral edema Peripheral neuropathy Radiation fibrosis Surgical History History of breast surgery History of lumpectomy History of tonsillectomy Family History Other Cancer Diabetes Hypertension Stroke Denies family history of CAD (coronary artery disease) Social History Smoking and tobacco status: never smoked Alcohol intake: current Alcohol intake frequency: holidays/special occasions only Substance/Drug Use: never Housing: House History of recent travel: No Vitals/I&O/Wt Last Vital Signs Temp 97.8 F 11/22/20 11:04 Pulse 80 11/22/20 13:23 Resp 24 H 11/22/20 13:23 BP 194/84 11/22/20 13:23 Pulse Ox 97 11/22/20 13:23 Weight last 48 hrs Weight 97.069 kg Physical Exam Narrative: EXAM NARRATIVE: Patient was sitting comfortably in her bed Appears stated age Does not look fluid overloaded or dehydrated Was comfortable and saturating well on room air Hypertensive blood pressure 194/130 mmHg Was complaining of frontal headache, no vision changes EOMI, PERRLA NIH 0 S1, S2 sinus rhythm no signs of heart failure or fluid overload Bilateral breath sounds without adventitious rhonchi or crackles Abdomen distended soft nontender Lower extremity no edema gangrene ulcer Appropriate mood and affect Awake alert oriented x3 GCS 15 Data : 11/22/20 11:17 11/22/20 11:17 A&P Assessment and plan (1) Hypertensive urgency: Status: Acute (2) TIA (transient ischemic attack): Status: Acute Additional A&P Information TIA NIH 0 Started her on aspirin Plavix with atorvastatin [address] head and CT head and neck unremarkable We will request MRI with echo and monitor heart rhythm with telemetry Currently EKG sinus rhythm no acute neurological deficits Please note that she has history of fibromyalgia paresthesias for which she is taking gabapentin also had psoriatic arthritis Hypertensive urgency: I would allow permissive hypertension However if her systolic blood pressure is above 180 and diastolic above 110 would treat her with labetalol Patient is complaining of frontal headache no signs of sinusitis Cardiac diet DVT prophylaxis Lovenox Full code Anticipating discharge tomorrow Attestations Medical Necessity Statement*: Patient is currently being admitted for TIA work-up neurologist recommended MRI and echo, likely will be discharged tomorrow anticipating discharge in less than 48 hours Time Spent in Patient Care: (>than 50% of time spent in counselling and/or direct pt care on unit). 35mins Coding Level of Care Code Acute Case Management Assistant for Chg Fwd Diagnoses Hypertensive urgency I16.0 TIA (transient ischemic attack) G45.9
--- NOTE | 2020-11-22 15:27 | PC.NURSE ---
MARSHALL HENRY was in the room when i took pts blood pressure.
[2020-11-22] MEDS: gabapentin 300 mg Capsule 600 MG PO ×2 (17:36→20:48)
[2020-11-22] MEDS: enoxaparin 40 mg/0.4 mL Syringe SUBCUT (17:36)
[2020-11-22] MEDS: naproxen 500 mg Tablet PO (17:37)
[2020-11-22] MEDS: BuSPIRONE 10 mg Tablet PO (20:48)
[2020-11-23] VITALS: BP 175/94; PULSE 75; RESP 18; TEMP 36.6; O2SAT 98
[2020-11-23 04:00] VITALS: BP 141/83; PULSE 76; RESP 18; TEMP 37; O2SAT 95
[2020-11-23 07:13] VITALS: BP 162/97; PULSE 75; RESP 18; TEMP 36.5; O2SAT 95
[2020-11-23] MEDS: aspirin 81 mg EC Tablet PO (08:31)
[2020-11-23] MEDS: potassium chloride ER 10 mEq Tablet PO (08:31)
[2020-11-23] MEDS: atorvastatin 40 mg Tablet 80 MG PO (08:31)
[2020-11-23] MEDS: BuSPIRONE 10 mg Tablet PO (08:31)
[2020-11-23] MEDS: clopidogrel 75 mg Tablet PO (08:32)
[2020-11-23] MEDS: gabapentin 300 mg Capsule 600 MG PO (08:32)
[2020-11-23] MEDS: FUROsemide 20 mg Tablet PO (08:32)
[2020-11-23] MEDS: lisinopril 10 mg Tablet PO (08:32)
--- NOTE | 2020-11-23 10:15 | MR_ITS ---
WS: [id number] MRI HEAD WITH CONTRAST TECHNIQUE: Sagittal T1, T2 axial, T2 axial FLAIR, axial susceptibility weighted imaging, axial diffus ion weighted images, and coronal T2 images were obtained. Pre and post-T1 axial and post T1 coronal i mages. ADC and FSPGR images. CLINICAL INFORMATION: TIA, hx of breast cancer COMPARISON: CT November 22, 2020 FINDINGS: No evidence of restricted diffusion to suggest acute ischemia. Ventricular system and basal cisterns are patent. Mild small vessel changes. Mild parenchymal volume loss. No extra-axial fluid collections . Normal posterior fossa. Normal vascular flow voids at the skull base. No extra-axial fluid collection s. Paranasal sinuses and mastoid air cells well aerated. Calcified right middle cranial fossa enhanci ng lesion consistent with meningioma measuring 1.3 x 0.5 CM. Mild mass effect on the underlying right temporal lobe. No underlying edema. No hemosiderin on the susceptibly weighted images. Normal optic chiasm and pituitary infundibulum. Mi ld symmetric atrophy involving the temporal lobes and hippocampal formations. Normal optic chiasm and pituitary infundibulum. Cavernous sinuses and Meckel's cave are normal. Normal dural venous sinuses. No evidence of enhancing intracranial metastatic disease. MR/MR head wo/w con [id number] IMPRESSION: 1. No evidence of restricted diffusion to suggest acute ischemia. 2. Mild small vessel changes with mild parenchymal volume loss. 3. Right middle cranial fossa meningioma measuring 1.3 x 0.5 CM. No underlying edema in the right temporal lobe. 4. No evidence of enhancing intracranial metastatic disease. 5. No other significant findings.
--- NOTE | 2020-11-23 10:36 | PM.DCS ---
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 She was not able to lift her leg at all. EMS was called and she was brought to the hospital. Her NIH was 1, she was not a TPA candidate. Her symptoms resolved by the time she arrived. She was diagnosed with hypertensive urgency systolic blood pressure 220/130 diastolic millimeters mercury. She was allowed to have permissive hypertension and labetalol 10 mg IV push was used only once. Her blood pressure remained between 140s to 160s systolic millimeter mercury. She did not experience recurrence of symptoms. He was ambulating fine and was able to tolerate her diet very well. She stayed afebrile CBC BMP unremarkable CT head unremarkable. Echo revealed grade 1 diastolic dysfunction with preserved ejection fraction, CTA head and neck revealed less than 50% cervical ICA stenosis bilaterally no flow limitations were noted intracranially. Incidental finding of multinodular thyroid. EKG remained sinus rhythm. ABCD score 2 score is 2, considering low-grade stenosis of ICA and resolution of symptoms I do not believe she will need urgent carotid endarterectomy however she will need follow-up with a vascular surgeon in near future. For now I would recommend following up with primary care physician and continuing aspirin Plavix and atorvastatin. Holter monitoring not required as MRI results findings were unremarkable& without ischemic stroke findings. She has meningioma without any signs of edema. Kindly follow-up with PCP for meningioma as you might need referral to Dr. Luna for follow-up. Physical Exam Narrative: EXAM NARRATIVE: Very pleasant female S1, S2 sinus rhythm no signs of heart failure no murmur appreciated Abdomen soft nontender No acute respite distress no audible wheezing or stridor Awake alert oriented x3 GCS 15 EOMI, PERRLA, No joint swelling NIH 0 Discharge Data Data Completed and Pending: Completed Studies During Hospitalization Category Date Time Status CT angio headneck * [id number] Urge nt Cat Scan 11/22/20 12:[address] head wo con* [id number] Stat Cat Scan 11/22/20 11:30 Completed CV echo complete* [id number] Urgent Ultrasound 11/22/20 14:16 Completed Pending at discharge Category Date Time Status MR head wo/w con [id number] Routine MRI 11/23/20 10:15 Ordered Labs from last 24 hours 11/22/20 11/22/20 11/22/20 12:12 11:41 11:17 WBC RBC Hgb Hct MCV MCH MCHC RDW Plt Count MPV Neut % (Auto) Lymph % (Auto) [place] % (Auto) Eos % (Auto) Baso % (Auto) Neut # (Auto) Lymph # (Auto) [place] # (Auto) Eos # (Auto) Baso # (Auto) Nucleated RBC % (a uto) Nucleated RBCs # PT INR APTT Sodium 140 Potassium 4.0 Chloride 103 Carbon Dioxide 29 Anion Gap 12.0 BUN 22 Creatinine 0.8 GFR Calculation 71.3 L Glucose 95 POC Glucose 124 H Calculated Osmolal ity 293 Calcium 9.4 Magnesium 1.9 Total Bilirubin 0.3 AST 26 ALT 25 Alkaline Phosphata se 98 Total Protein 7.5 Albumin 4.3 Globulin 3.2 Urine Color Yellow Urine Appearance Clear Urine pH 5 Ur Specific Gravit y 1.015 Urine Protein Neg Urine Glucose (UA) Norm Urine Ketones Negative Urine Blood Neg Urine Nitrate Negative Urine Bilirubin Neg Urine Urobilinogen Norm Ur Leukocyte Xena a[place] Negative 11/22/20 11/22/20 11:17 11:17 WBC 7.8 RBC 5.18 Hgb 15.2 Hct 46.2 MCV 89.2 MCH 29.3 MCHC 32.9 RDW 13.4 Plt Count 327 MPV 8.8 Neut % (Auto) 62.8 Lymph % (Auto) 23.8 [place] % (Auto) 7.7 Eos % (Auto) 4.5 Baso % (Auto) 1.1 Neut # (Auto) 4.92 Lymph # (Auto) 1.9 [place] # (Auto) 0.6 Eos # (Auto) 0.4 Baso # (Auto) 0.1 Nucleated RBC % (a uto) 0 Nucleated RBCs # 0.0 PT 13.50 INR 1.00 APTT 28.1 Sodium Potassium Chloride Carbon Dioxide Anion Gap BUN Creatinine GFR Calculation Glucose POC Glucose Calculated Osmolal ity Calcium Magnesium Total Bilirubin AST ALT Alkaline Phosphata se Total Protein Albumin Globulin Urine Color Urine Appearance Urine pH Ur Specific Gravit y Urine Protein Urine Glucose (UA) Urine Ketones Urine Blood Urine Nitrate Urine Bilirubin Urine Urobilinogen Ur Leukocyte Xena ase Vitals: Last Vital Signs Temp 97.7 F 11/23/20 07:13 Pulse 75 11/23/20 07:13 Resp 18 11/23/20 07:13 BP 162/97 11/23/20 07:13 Pulse Ox 95 11/23/20 07:13 Discharge Plan Discharge Patient Disposition: Home Condition: Stable Prescriptions: New atorvastatin 40 mg Tablet 80 mg PO DAILY 30 Days Qty: 30 RF: 0 clopidogrel 75 mg Tablet 75 mg PO DAILY 30 Days Qty: 30 RF: 0 aspirin 81 mg Tablet,Delayed Release (Dr/Ec) 81 mg PO DAILY@08 30 Days Qty: 30 RF: 0 lisinopril 10 mg Tablet 10 mg PO DAILY 30 Days Qty: 30 RF: 0 Continued tramadol 50 mg tablet 100 mg PO TID PRN (Reason: Pain) RF: 0 naproxen 500 mg tablet 500 mg PO BID PRN (Reason: Pain) RF: 0 aspirin [Aspir-81] 81 mg tablet,delayed release (DR/EC) 81 mg PO DAILY@08 RF: 0 cranberry 400 mg capsule 400 mg PO DAILY@08 RF: 0 cholecalciferol (vitamin D3) [Vitamin D3] 50 mcg (2,000 unit) capsule 2,000 unit PO DAILY@08 RF: 0 buspirone 10 mg tablet 10 mg PO BID@ RF: 0 krill oil 500 mg capsule 500 mg PO DAILY@08 RF: 0 potassium chloride 10 mEq capsule, extended release 10 meq PO BID@ RF: 0 furosemide [Lasix] 20 mg tablet 20 mg PO DAILY@08 RF: 0 tizanidine 2 mg capsule 2 mg PO DAILY PRN (Reason: muscle spasticity) Qty: 30 RF: 11 gabapentin 600 mg tablet 600 mg PO QID RF: 0 Cymbalta 60 mg capsule,delayed release(DR/EC) 120 mg PO DAILY@08 RF: 0 Discharge Orders: Discharge Order (Routine); Ordered 11/23/20 Ordered By: Aneesh Styles Other Ambulatory Orders: ECG holter monitor 24 hour (Routine) Timeframe: 3 Days Facility: [facility] - Location: Cardiology Outpatients Ordered By: Aneesh Styles Referrals: Agnes Alfaro MD [Primary Care Provider] - 12/03/20 1:30 pm Discharge Diet: Advance as tolerated Discharge Activity: Resume usual activity Patient Instructions: Lisinopril (By mouth), Aspirin (By mouth), Atorvastatin (By mouth), Clopidogrel (By mouth), Transient Ischemic Attack (DC), Self Care Measures After a Stroke (DC), Hypertensive Crisis (DC) Activity Restrictions/Additional Instructions: Please continue aspirin along Plavix and atorvastatin for TIA You have 50% stenosis of internal carotid arteries bilaterally considering resolution of symptoms which were paresthesia of your face and right side of your body, please follow-up with your vascular surgeon if in future you will benefit from carotid endarterectomy however your symptoms were mild which improved and the stenosis is considered low-grade I do believe your symptoms are related to stenosis of internal carotid arteries bilaterally because your EKG did not show any abnormal rhythm, no electrolyte abnormality noted. Please be aware I am adding lisinopril 10 mg daily for your blood pressure if your systolic blood pressure stays above 140 you can increase lisinopril dose to 20 mg daily Discharge Attestations Time Spent in Discharge Care*: less than 30 min Quality Metrics Clinical Quality Measures During this hospital stay, did patient experience: None
[2020-11-23] MEDS: gadobenate dimeglumine 20 mL vial IV (10:50)
--- NOTE | 2020-11-23 10:55 | PC.NURSE ---
Late entry 1015: Patient left the floor with EMT for scheduled MRI.
--- NOTE | 2020-11-23 11:09 | PC.NURSE ---
Patient returned from MRI at this time.
[2020-11-23 11:30] VITALS: BP 157/72; PULSE 78; RESP 18; TEMP 36.5; O2SAT 95
--- NOTE | 2020-11-23 13:20 | PC.NURSE ---
IV removed, catheter tip intact. Discharge instructions given to patient and granddaughter. Patient states verbal understanding. Patient discharged at this time in stable condition. In the care of granddaughter.
[2020-11-23 13:42] VITALS: BP 157/72; PULSE 78; RESP 18; TEMP 36.5; O2SAT 95
== END 2020-11-23 13:43 | disposition home or self-care (01) ==
LOC: ER 14:40 → MEDSURG 14:43
PROVIDERS: Admitting Provider Internal Medicine; Emergency Provider Family Medicine; PCP Family Medicine; Visit Provider Internal Medicine
DX: G45.9 Transient cerebral ischemic attack, unspecified (principal); I16.0 Hypertensive urgency; Z79.82 Long term (current) use of aspirin; Z85.3 Personal history of malignant neoplasm of breast; Z86.73 Personal history of transient ischemic attack (TIA), and cerebral infarction without residual deficits
CPT/HCPCS: 36416; 70450; 70496; 70498; 70553; 80053; 81003; 82962; 83735; 85025; 85610; 85730; 93005; 93306; 96372; 99285; A9577; G0378; J1650; Q9967

== ENCOUNTER 2021-09-26 13:26 | Outpatient (CLI) | payer MEDICARE, SELFPAY ==
--- NOTE | 2021-09-26 14:46 | MM_ITS ---
WS: [id number] BILATERAL DIGITAL DIAGNOSTIC MAMMOGRAM MAMMOGRAPHY WITH CAD CLINICAL INFORMATION: HX OF BREAST CA COMPARISON: August 02, 2020 TECHNIQUE: Bilateral CC, MLO, and ML views. FINDINGS: Scattered fibroglandular densities bilaterally. Postoperative changes right lumpectomy. Associated pa renchymal fibrosis. Benign fat necrosis. Dystrophic and lucent center calcifications. Clustered punct ate calcifications. No suspicious focal mass, asymmetry, calcifications, or architectural distortion. No evidence of yissel gnancy. MM/[place] [id number] IMPRESSION: BI-RADS: 2-Benign FOLLOW UP: 1 Year Follow-up Recommend return to annual diagnostic mammography.
== END 2021-09-26 13:27 | disposition home or self-care (01) ==
LOC: RADSHAW 13:33
PROVIDERS: PCP Family Medicine; Visit Provider Family Medicine
DX: Z85.3 Personal history of malignant neoplasm of breast (principal)
CPT/HCPCS: 77066

== ENCOUNTER 2021-10-09 15:33 | Outpatient (CLI) | payer MEDICARE, SELFPAY ==
--- NOTE | 2021-10-09 | USCV_ITS ---
Sara Joiner Age: 71 Gender: F : 1950 Exam Date: 10/09/2021 16:03 Ordering Phys: Agnes Alfaro MD Technologist: GOMEZ [place] [facility] [place]: EVAL FOR STENOSIS Risk Factors: Previous Vascular Surgery: Right Brachial BP: / Left Brachial BP: / Right Left Velocity (cm/s) Spectral Plaque Velocity (cm/s) Spectral Plaque Syst/Diast Broadening Syst/Diast Broadening 107.10/10.20 Prox CCA 132.80/ 24.00 108.10/22.10 Mid CCA 91.50 / 20.90 93.70/ 23.20 Distal CCA 107.90/ 27.20 85.00/ 19.30 Prox ICA 98.50 / 25.30 77.90/ 19.20 Mid ICA 101.70/ 33.60 81.50/ 26.60 Distal ICA 81.70 / 23.80 153.30 ECA 96.60 0.79 ICA/CCA 0.77 Antegrade Vertebral Antegrade 57.50/ 18.60 cm/s 63.70/ 21.00 cm/s Tri Subclavian Tri 108.5 148.6 0 0 CONCLUSIONS Right ICA stenosis <50%. Left ICA stenosis <50%. Normal antegrade Doppler flow noted in the right vertebral artery. Normal antegrade Doppler flow noted in the left vertebral artery. Neptali Guallpa MD (Electronically Signed) Final Date: 09 October 2021 17:18 S
== END 2021-10-09 15:34 | disposition home or self-care (01) ==
LOC: RAD 15:43
PROVIDERS: PCP Family Medicine; Visit Provider Family Medicine
DX: I65.23 Occlusion and stenosis of bilateral carotid arteries (principal)
CPT/HCPCS: 93880

== ENCOUNTER 2021-11-07 13:46 | Outpatient (CLI) | payer MEDICARE, SELFPAY ==
[2021-11-07 15:51] LABS: Adenovirus Not Detected (NOT DETECT); Chlamydia Pneumoniae Not Detected (NOT DETECT); Coronavirus 229E,HKU1,NL63,OC4 Not Detected (NOT DETECT); Human Metapneumovirus Not Detected (NOT DETECT); Human Rhinovirus/Enterovirus Not Detected (NOT DETECT); Influenza A Not Detected (NOT DETECT); Influenza A H1 Not Detected (NOT DETECT); Influenza A H1-2009 Not Detected (NOT DETECT); Influenza A H3 Not Detected (NOT DETECT); Influenza B Not Detected (NOT DETECT); Mycoplasma Pneumoniae Not Detected (NOT DETECT); Parainfluenza Virus Type 1 Not Detected (NOT DETECT); Parainfluenza Virus Type 2 Not Detected (NOT DETECT); Parainfluenza Virus Type 3 Not Detected (NOT DETECT); Parainfluenza Virus Type 4 Not Detected (NOT DETECT); Respiratory Syncytial Virus A Not Detected (NOT DETECT); Respiratory Syncytial Virus B Not Detected (NOT DETECT); SARS-COV-2 Not Detected (NOT DETECT)
== END 2021-11-07 13:47 | disposition home or self-care (01) ==
LOC: LAB 13:49
PROVIDERS: PCP Family Medicine; Visit Provider Surgery
DX: Z12.11 Encounter for screening for malignant neoplasm of colon (principal)
CPT/HCPCS: 87635

== ENCOUNTER 2021-11-13 07:32 | Day surgery (SDC) | payer MEDICARE, SELFPAY ==
[2021-11-11 12:33] VITALS: BMI 35.7
[2021-11-13 08:24] VITALS: BP 168/107; PULSE 87; RESP 20; TEMP 36.6; O2SAT 98
[2021-11-13] MEDS: sodium chloride 0.9% 1,000 ML 30 ML IV (08:30)
--- NOTE | 2021-11-13 08:37 | ANES.PREANE2 ---
Pre-Anesthetic Assessment Height/Weight: Height 1.65 m Weight 97.522 kg Temp Pulse Resp BP Pulse Ox 97.8 F 87 20 H 168/107 98 11/13/21 08:24 11/13/21 08:24 11/13/21 08:24 11/13/21 08:24 11/13/21 08:24 Preop Diagnosis: diagnostic Operation Date: 11/13/21 09:15 Proposed Procedures p Colonoscopy 54703(Not Applicable) - Saul Herrera MD Familial anesthetic complications: None Was Beta Josselyn taken within 24 hours: N/A Was Clonidine taken within 24 hours: N/A Last intake: Intake Last Liquid Date 11/12/21 Last Liquid Time 22:00 Last Solid Date 11/11/21 Last Solid Time 18:00 Social No alcohol and No tobacco Exam alert, oriented x 3, clear to auscultation bilaterally and regular rate & rhythm Airway Submandibular: within normal limits Cervical ROM: within normal limits Mallampati: Class II Dentition: full CV/HEM Hypertension Chest radiation Metabolic Hyperlipidemia and Morbid Obesity Anesthetic Plan ASA status: 3 Anesthesia: MAC Medications/Allergies Home Medications Medication Instructions Recorded Confirmed Last Taken Type aspirin 81 mg tablet,delayed 81 mg PO DAILY@12/13/19 11/11/21 11/07/21 History release (Aspir-) buspirone 10 mg tablet 10 mg PO BID@12/13/19 11/11/21 11/12/21 History cholecalciferol (vitamin D3) 50 2,000 unit PO DAILY@12/13/19 11/11/21 11/12/21 History mcg (2,000 unit) capsule (Vitamin D3) cranberry 400 mg capsule 400 mg PO DAILY@12/13/19 11/11/21 11/12/21 History naproxen 500 mg tablet 500 mg PO BID PRN 12/13/19 11/11/21 11/12/21 History tramadol 50 mg tablet 100 mg PO TID PRN tab 12/13/19 11/11/21 11/12/21 History furosemide 20 mg tablet (Lasix) 20 mg PO DAILY@03/20/20 11/11/21 11/12/21 History potassium chloride 10 mEq 10 meq PO BID@03/20/20 11/11/21 11/12/21 History capsule,extended release tizanidine 2 mg capsule 2 mg PO DAILY PRN #30 cap 03/20/20 11/11/21 11/12/21 Rx duloxetine 60 mg capsule,delayed 120 mg PO DAILY@08 11/22/20 11/11/21 11/12/21 History release (Cymbalta) gabapentin 600 mg tablet 600 mg PO QID 11/22/20 11/11/21 11/12/21 History atorvastatin 80 mg tablet 80 mg PO DAILY 10/15/21 11/11/21 11/12/21 History clopidogrel 75 mg tablet 75 mg PO DAILY 10/15/21 11/11/21 11/07/21 History lisinopril 10 mg tablet 10 mg PO DAILY 10/15/21 11/11/21 11/12/21 History mupirocin 2 % topical ointment 1 applic TOPICAL TID 10/15/21 11/11/21 Unknown History polyethylene glycol 3350 17 17 g PO DAILY 10/15/21 11/11/21 11/12/21 History gram/dose oral powder (Miralax) Allergies Allergy/AdvReac Type Severity Reaction Status Date / Time bupropion [From Wellbutrin] AdvReac muscle Verified 10/15/21 14:52 cramps Current Medications Generic Name Dose Route Start Last Admin Trade Name Freq PRN Reason Stop Dose Admin Sodium Chloride 1,000 mls @ 30 mls/hr 11/13/21 08:15 11/13/21 08:30 Sodium Chloride 0.9% IV 11/14/21 08:14 30 mls/hr .Q24H ANICETO Administration PFSH Anesthesia Medical History Bilateral carotid artery stenosis Breast cancer, right Depression Fibromyalgia Hypertension Peripheral neuropathy Radiation fibrosis TIA (transient ischemic attack) Surgical History History of colonoscopy 2004 hx of polyps and diverticulitis History of tonsillectomy Status post right breast lumpectomy with re-excision with SLNB Family History Other Cancer Diabetes Hypertension Stroke Denies family history of CAD (coronary artery disease) Social History Smoking and tobacco status: former smoker Alcohol intake: current Alcohol intake frequency: holidays/special occasions only Housing: House History of recent travel: No Data Anesthesia Cardiac Studies: Echocardiogram Ultrasound 11/22/20
[2021-11-13 10:04] VITALS: BP 146/80; PULSE 76; RESP 16; TEMP 36.1; O2SAT 97
--- NOTE | 2021-11-13 10:07 | W.PM.OPSFHP ---
Same Day Surgery H&P Indication for Procedure/HPI DATE OF PROCEDURE: November 13, 2021 CHIEF COMPLAINT/INDICATIONFOR SURGICAL PROCEDURE: colonoscopy PREOP DIAGNOSIS: diagnostic PLANNED PROCEDURE: Operation Date: 11/13/21 09:15 Proposed Procedures p Colonoscopy 51811(Not Applicable) - Saul Herrera MD Medications/Allergies* Home Medications Medication Instructions Recorded Confirmed Type aspirin 81 mg tablet,delayed 81 mg PO DAILY@08 12/13/19 11/11/21 History release (Aspir-) buspirone 10 mg tablet 10 mg PO BID@12/13/19 11/11/21 History cholecalciferol (vitamin D3) 50 2,000 unit PO DAILY@12/13/19 11/11/21 History mcg (2,000 unit) capsule (Vitamin D3) cranberry 400 mg capsule 400 mg PO DAILY@12/13/19 11/11/21 History naproxen 500 mg tablet 500 mg PO BID PRN 12/13/19 11/11/21 History tramadol 50 mg tablet 100 mg PO TID PRN tab 12/13/19 11/11/21 History furosemide 20 mg tablet (Lasix) 20 mg PO DAILY@03/20/20 11/11/21 History potassium chloride 10 mEq 10 meq PO BID@03/20/20 11/11/21 History capsule,extended release duloxetine 60 mg capsule,delayed 120 mg PO DAILY@08 11/22/20 11/11/21 History release (Cymbalta) gabapentin 600 mg tablet 600 mg PO QID 11/22/20 11/11/21 History atorvastatin 80 mg tablet 80 mg PO DAILY 10/15/21 11/11/21 History clopidogrel 75 mg tablet 75 mg PO DAILY 10/15/21 11/11/21 History lisinopril 10 mg tablet 10 mg PO DAILY 10/15/21 11/11/21 History mupirocin 2 % topical ointment 1 applic TOPICAL TID 10/15/21 11/11/21 History polyethylene glycol 3350 17 17 g PO DAILY 10/15/21 11/11/21 History gram/dose oral powder (Miralax) Allergies/Adverse Reactions Allergy/AdvReac Type Severity Reaction Status Date / Time bupropion [From Wellbutrin] AdvReac muscle Verified 10/15/21 14:52 cramps Current Medications: Generic Name Dose Route Start Last Admin Trade Name Tavon PRN Reason Stop Dose Admin Sodium Chloride 1,000 mls @ 30 mls/hr 11/13/21 08:15 11/13/21 08:30 Sodium Chloride 0.9% IV 11/14/21 08:14 30 mls/hr .Q24H ANICETO Administration Pertinent History/Comorbid Conditions* Medical History (Updated 10/15/21 @ 15:11 by Saul Herrera MD) Bilateral carotid artery stenosis Breast cancer, right Depression Fibromyalgia Hypertension Peripheral neuropathy Radiation fibrosis TIA (transient ischemic attack) Surgical History (Updated 10/15/21 @ 15:11 by Saul Herrera MD) History of colonoscopy 2004 hx of polyps and diverticulitis History of tonsillectomy Status post right breast lumpectomy with re-excision with SLNB Family History (Updated 12/13/19 @ 15:33 by Breanna Flowers LPN) Diabetes Cancer Hypertension Stroke Denies family history of CAD (coronary artery disease) Social History Smoking and tobacco status: former smoker Alcohol intake: current Alcohol intake frequency: holidays/special occasions only Housing: House History of recent travel: No Pertinent Exam Findings alert, oriented x 3 and regular rate & rhythm Recommendations Surgery/Procedure today Coding Level of Care Code Acute Extruder Tender for Madhu Chadwick
--- NOTE | 2021-11-13 10:07 | ANE.PACU2 ---
Inpatient post-anesthesia follow up: Airway intact: Yes Vital signs: Temperature 97 F Pulse Rate 76 Respiratory Rate 16 Blood Pressure 146/80 Pulse Oximetry 97 Oxygen Delivery Me thod Room Air Oxygen Flow Rate Fraction of Inspir ed Oxygen Hydration adequate: Yes Nausea and vomiting: No Pain level: 1 Mental status: Baseline
[2021-11-13 10:09] VITALS: BP 162/94; PULSE 77; RESP 18; O2SAT 98
== END 2021-11-13 10:25 | disposition home or self-care (01) ==
PROVIDERS: PCP Family Medicine; Visit Provider Surgery
PROC: 0DJD8ZZ Inspection of Lower Intestinal Tract, Via Natural or Artificial Opening Endoscopic (ICD-10-PCS; CPT 45378; principal; 2021-11-13 09:15)
DX: Z12.11 Encounter for screening for malignant neoplasm of colon (principal); K57.30 Diverticulosis of large intestine without perforation or abscess without bleeding; K62.4 Stenosis of anus and rectum; I10 Essential (primary) hypertension; E78.5 Hyperlipidemia, unspecified; E66.01 Morbid (severe) obesity due to excess calories; Z68.35 Body mass index [BMI] 35.0-35.9, adult; Z79.82 Long term (current) use of aspirin; F32.9 Major depressive disorder, single episode, unspecified; M79.7 Fibromyalgia; Z82.49 Family history of ischemic heart disease and other diseases of the circulatory system; Z82.3 Family history of stroke; Z83.3 Family history of diabetes mellitus; Z87.891 Personal history of nicotine dependence
CPT/HCPCS: G0121; J2704; J7030

== ENCOUNTER 2022-04-09 06:09 | Outpatient (CLI) | payer MEDICARE, OTHER, SELFPAY ==
--- NOTE | 2022-04-09 | US_ITS ---
WS: [id number] RIGHT UPPER QUADRANT ULTRASOUND HISTORY: ELEVATED LFT'S COMPARISON: None available. Liver: 14.6 cm in length. Normal size liver. No bile duct dilatation or mass. Portal Vein: Normal hepatopetal flow with monophasic waveform. Gallbladder: Normally distended gallbladder with stones and shadowing. No gallbladder wall thickening or pericholecystic fluid is identified. CBD: 0.5 cm Pancreas: Partially visualized pancreas. Head and tail are not visualized. The body is negative. Right kidney: 11.0 cm in length. Normal size and echogenicity. No hydronephrosis or mass. Aorta and IVC: Unremarkable abdominal aorta and IVC. No ascites. US/US abdomen limited [id number] IMPRESSION: 1. Cholelithiasis without evidence for acute cholecystitis. 2. No bile duct dilatation. 3. Partially visualized pancreas.
== END 2022-04-09 06:10 | disposition home or self-care (01) ==
PROVIDERS: PCP Family Medicine; Visit Provider Family Medicine
DX: R79.89 Other specified abnormal findings of blood chemistry (principal); K80.20 Calculus of gallbladder without cholecystitis without obstruction
CPT/HCPCS: 76705

== ENCOUNTER 2022-09-29 15:24 | Outpatient (CLI) | payer MEDICARE, OTHER, SELFPAY ==
--- NOTE | 2022-09-29 15:52 | MM_ITS ---
WS: [id number] BILATERAL 3D TOMOSYNTHESIS DIGITAL DIAGNOSTIC MAMMOGRAPHY WITH CAD CLINICAL INFORMATION: HX OF BREAST C. Chronic breast lumps unchanged. COMPARISON: 2021 TECHNIQUE: Bilateral CC, MLO, and ML views. FINDINGS: Scattered fibroglandular densities bilaterally. Postoperative changes right lumpectomy with stable pa renchymal fibrosis. Associated benign fat necrosis. Dystrophic and lucent center calcifications. Stab le clustered punctate calcifications. Vascular calcification. No suspicious focal mass, asymmetry, calcifications, or architectural distortion. No evidence of yissel gnancy. MM/[place] [id number] IMPRESSION: BI-RADS: 2-Benign FOLLOW UP: 1 Year Follow-up Recommend return to annual diagnostic mammography.
== END 2022-09-29 15:25 | disposition home or self-care (01) ==
PROVIDERS: PCP Family Medicine; Visit Provider Family Medicine
DX: Z85.3 Personal history of malignant neoplasm of breast (principal)
CPT/HCPCS: 77062; G0279

== ENCOUNTER 2022-11-04 19:32 | Inpatient (IN) | payer MEDICARE, OTHER, SELFPAY ==
[2022-11-04] VITALS (13 sets, daily range): BP systolic 92–148; BP diastolic 46–112; PULSE 67–94; RESP 14–22; TEMP 36.8; O2SAT 99–100; BMI 34.2
--- NOTE | 2022-11-04 19:40 | XRR_ITS ---
PROCEDURE INFORMATION: Exam: XR Chest Exam date and time: 11/04/2022 7:45 PM Age: 72 years old Clinical indication: Patient HX: AMS; Stroke like symptoms TECHNIQUE: Imaging protocol: Radiologic exam of the chest. Views: 1 view. COMPARISON: CR XR chest 2V* [id number] 01/18/2020 1:59 PM FINDINGS: Tubes, catheters and devices: There is an ET tube in satisfactory position 4 cm above the jose. Lungs: Lung volumes are somewhat decreased. There are minor bibasilar atelectatic changes. Pleural spaces: Unremarkable. No pleural effusion. No pneumothorax. Heart/Mediastinum: Heart size is unchanged within upper limits of normal. Bones/joints: Unremarkable for age. XR/XR chest 1V portable [id number] IMPRESSION: 1. ET tube in satisfactory position. 2. Decreased lung volumes with minor bibasilar atelectatic changes.
--- NOTE | 2022-11-04 19:40 | CTR_ITS ---
PROCEDURE INFORMATION: Exam: CTA Head With Contrast, Arteriography Exam date and time: 11/04/2022 8:04 PM Age: 72 years old Clinical indication: Stroke-like symptoms; Altered mental status/memory loss and syncope/collapse; Additional info: AMS TECHNIQUE: Imaging protocol: Computed tomographic angiography of the head with contrast. Exam focused on the arteries. 3D rendering (Not supervised by radiologist): MIP and/or 3D reconstructed images were created by the technologist. Radiation optimization: All CT scans at this facility use at least one of these dose optimization techniques: automated exposure control; mA and/or kV adjustment per patient size (includes targeted exams where dose is matched to clinical indication); or iterative reconstruction. Contrast material: OMNI 350; Contrast volume: 100 ml; Contrast route: INTRAVENOUS (IV); REPORTING DATA: Count of CT and Cardiac NM exams in prior 12 months: This patient has received [address] and 0 known cardiac nuclear medicine studies in the 12 months prior to the current study. COMPARISON: CT angio headneck* [id number] 11/22/2020 12:57 PM RADIATION DOSE METRICS: Total DLP (mGy-cm): 520.14 FINDINGS: Tubes, catheters and devices: Fluid in the nasopharynx, consistent with intubation. ANTERIOR CIRCULATION: Right internal carotid artery: Intracranial segment is patent with no significant stenosis. No aneurysm. Right middle cerebral artery: No occlusion or significant stenosis. No aneurysm. Right anterior cerebral artery: No occlusion or significant stenosis. No aneurysm. Single proximal anterior cerebral artery. Left internal carotid artery: Intracranial segment is patent with no significant stenosis. No aneurysm. Left middle cerebral artery: No occlusion or significant stenosis. No aneurysm. Left anterior cerebral artery: No occlusion or significant stenosis. No aneurysm. Single proximal anterior cerebral artery. POSTERIOR CIRCULATION: Right vertebral artery: No occlusion or significant stenosis. No aneurysm. Left vertebral artery: No occlusion or significant stenosis. No aneurysm. Basilar artery: No occlusion or significant stenosis. No aneurysm. Right posterior cerebral artery: No occlusion or significant stenosis. No aneurysm. Left posterior cerebral artery: No occlusion or significant stenosis. No aneurysm. Brain: No definite mass, mass effect, or midline shift. Cerebral ventricles: No ventriculomegaly. Bones/joints: Unremarkable. No acute fracture. Soft tissues: Unremarkable. Other findings: PROCEDURE INFORMATION: Exam: CTA Neck With Contrast Exam date and time: 11/04/2022 8:04 PM Age: 72 years old Clinical indication: Stroke-like symptoms; Altered mental status/memory loss and syncope/collapse; Additional info: AMS TECHNIQUE: Imaging protocol: Computed tomographic angiography of the neck with contrast. 3D rendering (Not supervised by radiologist): MIP and/or 3D reconstructed images were created by the technologist. Radiation optimization: All CT scans at this facility use at least one of these dose optimization techniques: automated exposure control; mA and/or kV adjustment per patient size (includes targeted exams where dose is matched to clinical indication); or iterative reconstruction. Contrast material: OMNI 350; Contrast volume: 100 ml; Contrast route: INTRAVENOUS (IV); REPORTING DATA: Count of CT and Cardiac NM exams in prior 12 months: This patient has received [address] and 0 known cardiac nuclear medicine studies in the 12 months prior to the current study. COMPARISON: CT angio headneck* [id number] 11/22/2020 12:57 PM RADIATION DOSE METRICS: Total DLP (mGy-cm): 520.14 FINDINGS: Tubes, catheters and devices: Intubation with tip in the midthoracic trachea. Right common carotid artery: No stenosis. No dissection or occlusion. Right internal carotid artery: Calcified plaque in the proximal right internal carotid artery with 0% stenosis. Right external carotid artery: No occlusion or stenosis of the origin. Left common carotid artery: No stenosis. No dissection or occlusion. Left internal carotid artery: Calcified plaque in the proximal left internal carotid artery with 20% stenosis. Left external carotid artery: No occlusion or stenosis of the origin. Right vertebral artery: No stenosis. No dissection or occlusion. Left vertebral artery: No stenosis. No dissection or occlusion. Thyroid: Multiple thyroid nodules measuring up to 1.0 cm. No ultrasound follow-up is recommended. Lymph nodes: Prominent left axillary lymph nodes. Soft tissues: Normal. No significant soft tissue swelling. Bones/joints: No acute fracture. Lungs: Calcified granulomas in the left upper lobe. CT/CT angio headneck* [id number] IMPRESSION: 1. No large artery occlusion or stenosis. IMPRESSION: 1. Calcified plaque in the proximal left internal carotid artery with 20% stenosis. COMMENTS: Consistent with the [employer]'s Incidental Findings Committee white paper (J Am Kelvin Radiol 2015): In patients aged 35 years and older with an incidental thyroid nodule equal to or greater than 1.[address], MRI or extrathyroidal US, further evaluation with dedicated thyroid US is recommended for patients with normal life expectancy and without comorbidities. For smaller nodules without suspicious features, no further evaluation or follow up is recommended. REFERENCES: NASCET CRITERIA. The degree of stenosis in the cervical segment of the internal carotid artery is based on NASCET criteria. Normal is no stenosis. Mild is less than 50% stenosis. Moderate is 50-69% stenosis. Severe is 70% to 99% stenosis. Total occlusion is no detectable patent lumen.
--- NOTE | 2022-11-04 19:41 | CTR_ITS ---
PROCEDURE INFORMATION: Exam: CT Head Without Contrast Exam date and time: 11/04/2022 7:58 PM Age: 72 years old Clinical indication: Stroke-like symptoms; Altered mental status/memory loss and syncope/collapse; Additional info: Per EMS, patient at home in recliner when suddendly slumped over and become unresponsive except for sternal rub. Last known well time at approx 1845. History of TIA. Had lap ezra yesterday. TECHNIQUE: Imaging protocol: Computed tomography of the head without contrast. Radiation optimization: All CT scans at this facility use at least one of these dose optimization techniques: automated exposure control; mA and/or kV adjustment per patient size (includes targeted exams where dose is matched to clinical indication); or iterative reconstruction. Other protocol: This patient has received [address] and 0 known cardiac nuclear medicine studies in the 12 months prior to the current study. Other technique: STROKE PROTOCOL was implemented. COMPARISON: CT head performed January 23, 2017 RADIATION DOSE METRICS: Total DLP (mGy-cm): 1163.38 FINDINGS: Brain: Normal. No hemorrhage. No space-occupying masses or areas of mass effect. No edema or midline shift. Cortical sulci are unremarkable for age. Cerebral ventricles: No ventriculomegaly. Paranasal sinuses: Visualized sinuses are unremarkable. No fluid levels. Mastoid air cells: Visualized mastoid air cells are well aerated. Bones/joints: Unremarkable. Soft tissues: Some fluid accumulation within the posterior aspect of the nasopharynx.. CT/CT head thrombolytic [id number] IMPRESSION: Negative CT examination of the head. No acute intracranial abnormalities. ASSESSMENT: ASPECTS ([employer] Stroke Program Early CT Score) is 10.
--- NOTE | 2022-11-04 19:46 | ED_ITS ---
HPI - Altered Mental Status General: Chief Complaint: Altered Mental Status Stated Complaint: stroke like symptoms Time Seen by Provider: 11/04/22 19:40 Source: EMS Mode of arrival: EMS Limitations: altered mental status History of Present Illness: 72-year-old female who had a cholecystectomy done yesterday laparoscopically. Her EMS roughly 45 minutes ago she had went unresponsive with her when they arrived she is only responsive to painful stimuli they did RSI her and attempted ablation she was given rocuronium and etomidate she has a Daniel airway in place currently she still paralyzed from the rocuronium EMS states she had minimal movements was not unresponsive only to the painful stimuli Review of Systems General: Reports: ROS unobtainable due to mental status PFSH ED PFSH: Medical History (Updated 11/05/22 @ 01:02 by Javon Vaughn MD) Bilateral carotid artery stenosis Breast cancer, right Depression Fibromyalgia Hypertension Peripheral neuropathy Radiation fibrosis TIA (transient ischemic attack) Surgical History (Updated 11/05/22 @ 01:02 by Javon Vaughn MD) History of colonoscopy 2004 hx of polyps and diverticulitis History of tonsillectomy S/P cholecystectomy Status post colonoscopy (11/13/21) Diverticulosis Status post right breast lumpectomy with re-excision with SLNB Family History Other Cancer Diabetes Hypertension Stroke Denies family history of CAD (coronary artery disease) Social History Smoking and tobacco status: former smoker Alcohol intake: current Alcohol intake frequency: holidays/special occasions only Housing: House Physical Exam Const: COMMON NORMALS: negative for patient oriented x3 GENERAL APPEARANCE: ill appearing OTHER: Patient was paralyzed and field has a Daniel airway in place HENMT: COMMON NORMALS: normocephalic and atraumatic HEAD & SCALP: normocephalic and atraumatic MOUTH: Normal oral and palatal mucosa present THROAT: posterior oropharynx normal Eye: COMMON NORMALS: conjunctivae normal CONJUNCTIVA: Yes conjunctivae normal OTHER: Pupils unreactive but she was given a paralytic before arrival Neck/C-Spine: COMMON NORMALS: supple Chest: COMMONS NORMALS: normal inspection of the chest and normal palpation of entire chest wall Resp: OTHER: Breath sounds normal bilaterally with Daniel airway in place Cardio: COMMON NORMALS: regular rate and regular rhythm RATE: regular rate RHYTHM: regular rhythm GI: COMMON NORMALS: Normal to inspection, nondistended, normoactive bowel sounds present, Soft to palpation, No hepatosplenomegaly present and no masses PALPATION: Yes Soft to palpation and Yes No hepatosplenomegaly present Extremity: COMMON NORMALS: normal to inspection Neuro: COMMON NORMALS: negative for patient oriented x3 Psych: COMMON NORMALS: negative for mental status grossly normal Skin: COMMON NORMALS: no rashes or lesions noted GENERAL SKIN EXAM: no rashes or lesions noted Procedures Intubation Time out performed: Yes sedative: none Laryngoscope: Alex Assist Device Used: fiber optic device ET Tube Size: 8 ET Tube Uncuffed: No Tube Secured Depth (cm): 8 Tube Secured Location: teeth Tube Placement Confirmation: visualized tube passing through cords, equal breath sounds bilaterally, no breath sounds over epigastrium and confirmation by capnometry Patient Tolerated Procedure: well Intubation Complications: none Additional Comments: Patient received rocuronium etomidate in the field to attempt RSI then placed a Daniel tube patient was still paralyzed I placed a Daniel tube with an ET tube did not have to give her any more etomidate or rock Course Vital Signs: Vital signs: Vital Signs Temperature 98.3 F 11/04/22 19:38 Pulse Rate 78 11/05/22 01:24 Respiratory Rate 14 11/05/22 01:24 Blood Pressure 130/57 11/05/22 01:24 Pulse Oximetry 100 11/05/22 01:24 Oxygen Delivery Me thod 11/05/22 01:24 Fraction of Inspir ed Oxygen 50 11/04/22 20:54 MDM - Altered Mental Status Medical Decision Making Patient presents here with altered mental status she is paralyzed and not able to do a full neurologic exam I did Rik Khalil who had seen the patient over Rik and reviewed the CT scan that showed no signs of acute stroke CTA was negative as well due to her recent surgery no signs of a large stroke tPA was not recommended MRCP showed no stones or blockage in her duct she is in normal blood pressure she started to move here as well spoke to the hospitalist will admit to the ICU at this time she is still intubated at this time. Lab Data 11/04/22 19:14 11/04/22 19:14 Radiology Impressions Chest X-Ray 11/04/22 19:40 IMPRESSION: 1. ET tube in satisfactory position. 2. Decreased lung volumes with minor bibasilar atelectatic changes. Head/Neck CTA 11/04/22 19:40 IMPRESSION: 1. No large artery occlusion or stenosis. IMPRESSION: 1. Calcified plaque in the proximal left internal carotid artery with 20% stenosis. COMMENTS: Consistent with the [employer]'s Incidental Findings Committee white paper (J Am Kelvin Radiol 2015): In patients aged 35 years and older with an incidental thyroid nodule equal to or greater than 1.[address], MRI or extrathyroidal US, further evaluation with dedicated thyroid US is recommended for patients with normal life expectancy and without comorbidities. For smaller nodules without suspicious features, no further evaluation or follow up is recommended. REFERENCES: NASCET CRITERIA. The degree of stenosis in the cervical segment of the internal carotid artery is based on NASCET criteria. Normal is no stenosis. Mild is less than 50% stenosis. Moderate is 50-69% stenosis. Severe is 70% to 99% stenosis. Total occlusion is no detectable patent lumen. Head CT 11/04/22 19:41 IMPRESSION: Negative CT examination of the head. No acute intracranial abnormalities. ASSESSMENT: ASPECTS ([employer] Stroke Program Early CT Score) is 10. Chest/Abdomen/Pelvis CT 11/04/22 20:22 IMPRESSION: 1. No evidence for pulmonary embolus. 2. Shallow inspiration with atelectasis and mild air trapping. 3. Filling defects in the distal trachea and proximal right mainstem bronchus are most likely mucus. IMPRESSION: 1. Post cholecystectomy changes as described. 2. Hematoma in the upper right abdominus rectus muscle measuring up to 4.0 cm in thickness. This is most likely related to the recent surgery. 3. Small amount of blood along the anterior liver. 4. Intrahepatic and extrahepatic ductal dilatation. No visible intraductal filling defect. Follow-up with MRCP is recommended. COMMENTS: Consistent with the [employer]'s Incidental Findings Committee white paper (J Am Kelvin Radiol 2018): Any incidental renal lesion less than 1 cm or classified as too small to characterize, or any incidental cystic renal lesion characterized as simple-appearing, is likely benign. No follow-up imaging is recommended for these lesions per consensus recommendations based on imaging criteria. Cholangiopancreatography MRI 11/04/22 22:31 IMPRESSION: 1. Stable post cholecystectomy changes with dilated common bile duct to 1.1 cm with intrahepatic biliary ductal dilatation also present. No filling defect is seen to indicate a stone. 2. Stable minimal blood anterior to the liver which is likely postoperative. 3. Stable right rectus sheath hematoma. Laboratory Results WBC 17.1 10^3/uL (4.0-10.0) H 11/04/22 19:14 RBC 3.49 10^6/uL (4.1-5.3) L 11/04/22 19:14 Hgb 10.4 g/dL (11.5-15.3) L 11/04/22 19:14 Hct 32.6 % (37.0-47.0) L 11/04/22 19:14 MCV 93.4 fl (81-99) 11/04/22 19:14 MCH 29.8 pg (28.0-34.0) 11/04/22 19:14 MCHC 31.9 g/dL (30.0-36.0) 11/04/22 19:14 RDW 13.6 % (12.1-15.1) 11/04/22 19:14 Plt Count 304 10^3/cmm (130-400) 11/04/22 19:14 MPV 9.6 fL (7.4-10.4) 11/04/22 19:14 Neut % (Auto) 75.1 % 11/04/22 19:14 Lymph % (Auto) 15.0 % 11/04/22 19:14 [place] % (Auto) 9.1 % 11/04/22 19:14 Eos % (Auto) 0.0 % 11/04/22 19:14 Baso % (Auto) 0.4 % 11/04/22 19:14 Neut # (Auto) 12.85 10^3/uL (1.8-7.7) H 11/04/22 19:14 Lymph # (Auto) 2.6 10^3/uL (0.8-4.8) 11/04/22 19:14 [place] # (Auto) 1.6 10^3/uL (0.2-0.9) H 11/04/22 19:14 Eos # (Auto) 0.0 10^3/uL (0.0-0.8) 11/04/22 19:14 Baso # (Auto) 0.1 10^3/uL (0.0-0.1) 11/04/22 19:14 Nucleated RBC % (auto) 0 % 11/04/22 19:14 Nucleated RBCs # 0.0 /100WBC 11/04/22 19:14 PT 15.70 SECONDS (12.1-14.9) H 11/04/22 19:14 INR 1.21 (0.8-1.2) H 11/04/22 19:14 APTT 28.9 SECONDS (23.9-36.7) 11/04/22 19:14 Specimen Type Arterial 11/04/22 20:40 Sample Site Brachial, right 11/04/22 20:40 ABG pH 7.41 (7.35-7.45) 11/04/22 20:40 ABG pCO2 43.4 mmHg (35-45) 11/04/22 20:40 ABG pO2 290.0 mmHg (80.0-100.0) H 11/04/22 20:40 ABG HCO3 27.4 mmol/L (22-26) H 11/04/22 20:40 ABG Base Excess 2.4 mmol/L (-2.0-2.0) H 11/04/22 20:40 Prabhjot Test N/a 11/04/22 20:40 Hematocrit 29.8 % (37-47) L 11/04/22 20:40 O2 Delivery Device Vent 11/04/22 20:40 FiO2 100.0 % 11/04/22 20:40 PEEP 5.0 cmH20 11/04/22 20:40 Tenant Coordinator ID Julio C 11/04/22 20:40 Sodium 138 mmol/L (136-145) 11/04/22 19:14 Potassium 4.3 mmol/L (3.5-5.1) 11/04/22 19:14 Chloride 103 mmol/L (98-107) 11/04/22 19:14 Carbon Dioxide 26 mmol/L (22-29) 11/04/22 19:14 Anion Gap 13.3 (5-19) 11/04/22 19:14 BUN 17 mg/dL (8-23) 11/04/22 19:14 Creatinine 1.0 mg/dL (0.5-0.9) H 11/04/22 19:14 GFR Calculation 54.8 mL/min (90-130) L 11/04/22 19:14 Glucose 141 mg/dL (65-115) H 11/04/22 19:14 POC Glucose 143 mg/dL (70-110) H 11/04/22 19:46 Calculated Osmolality 290 mOsm/kg (285-295) 11/04/22 19:14 Lactate 2.1 mmol/L (0.5-2.2) 11/04/22 19:40 Calcium 8.8 mg/dL (8.5-10.5) 11/04/22 19:14 Total Bilirubin 0.5 mg/dL (0.15-1.2) 11/04/22 19:14 AST 111 U/L (0-32) H 11/04/22 19:14 ALT 123 U/L (0-33) H 11/04/22 19:14 Alkaline Phosphatase 186 U/L (35-105) H 11/04/22 19:14 Ammonia 34 umol/L (11-51) 11/04/22 20:22 Troponin T Baseline 16 ng/L (0-10) H 11/04/22 19:40 Troponin T 120 Minute 13.07 ng/L (0-10) H 11/04/22 20:50 Delta Troponin T -2.93 ABS# (0-10) L 11/04/22 20:50 Total Protein 6.1 g/dL (6.6-8.7) L 11/04/22 19:14 Albumin 3.6 g/dL (3.5-5.2) 11/04/22 19:14 Globulin 2.5 g/dL (1.3-4.6) 11/04/22 19:14 Urine Color Yellow (Yellow) 11/04/22 20:40 Urine Appearance Clear (CLEAR) 11/04/22 20:40 Urine pH 5 (5-7) 11/04/22 20:40 Ur Specific [place] 1.015 (1.005-1.030) 11/04/22 20:40 Urine Protein Neg (Negative) 11/04/22 20:40 Urine Glucose (UA) Norm (Normal) 11/04/22 20:40 Urine Ketones Negative (Negative) 11/04/22 20:40 Urine Blood Neg (Negative) 11/04/22 20:40 Urine Nitrate Negative (Negative) 11/04/22 20:40 Urine Bilirubin Neg (Negative) 11/04/22 20:40 Urine Urobilinogen Norm mg/dL (Negative) 11/04/22 20:40 Ur Leukocyte Esterase Negative (Negative) 11/04/22 20:40 Urine Opiates Screen Positive ng/mL (Negative) H 11/04/22 20:40 Ur Barbiturates Screen Negative ng/mL (Negative) 11/04/22 20:40 Ur Phencyclidine Scrn Negative ng/mL (Negative) 11/04/22 20:40 Ur Amphetamines Screen Negative ng/mL (Negative) 11/04/22 20:40 U Benzodiazepines Scrn Negative ng/mL (Negative) 11/04/22 20:40 Urine Cocaine Screen Negative ng/mL (Negative) 11/04/22 20:40 U Marijuana (THC) Screen Negative ng/mL (Negative) 11/04/22 20:40 Ethyl Alcohol < 10 mg/dL (0-10) 11/04/22 19:14 Discharge Plan Discharge Condition: Stable Prescriptions: No Action tramadol 50 mg tablet 100 mg PO TID PRN (Reason: Pain) naproxen 500 mg tablet 500 mg PO BID PRN (Reason: Pain) aspirin [Aspir-81] 81 mg tablet,delayed release (DR/EC) 81 mg PO DAILY@08 cranberry 400 mg capsule 400 mg PO DAILY@08 cholecalciferol (vitamin D3) [Vitamin D3] 50 mcg (2,000 unit) capsule 2,000 unit PO DAILY@08 buspirone 10 mg tablet 10 mg PO BID@, potassium chloride 10 mEq capsule, extended release 10 meq PO BID@, furosemide [Lasix] 20 mg tablet 20 mg PO DAILY@08 tizanidine 2 mg capsule 2 mg PO DAILY PRN (Reason: muscle spasticity) Qty: 30 11RF atorvastatin 80 mg tablet 80 mg PO DAILY clopidogrel 75 mg tablet 75 mg PO DAILY lisinopril 10 mg tablet 10 mg PO DAILY mupirocin 2 % ointment 1 applic topical TID polyethylene glycol 3350 [Miralax] 17 gram/dose powder 17 g PO DAILY gabapentin 600 mg tablet 600 mg PO QID Rx Instructions: at 0800,1200,1700,2100 duloxetine [Cymbalta] 60 mg capsule,delayed release(DR/EC) 120 mg PO DAILY@08 Referrals: Agnes Alfaro MD [Primary Care Provider] - Coding Level of Care Code ED Clinical Project Leader for [facility]
[2022-11-04 19:48] LABS: Glucose Point of Care 143 mg/dL (70-110)
[2022-11-04] MEDS: propofol 1,000 MG/100 ML INJ 5.61 MG IV (19:50)
[2022-11-04 19:58] LABS: Basophils # 0.1 10^3/uL (0.0-0.1); Basophils % 0.4 %; Hematocrit 32.6 % (37.0-47.0); Hemoglobin 10.4 g/dL (11.5-15.3); Lymphocytes # 2.6 10^3/uL (0.8-4.8); Mean Corpuscular HGB Conc 31.9 g/dL (30.0-36.0); Mean Corpuscular Hemoglobin 29.8 pg (28.0-34.0); Mean Corpuscular Volume 93.4 fl (81-99); Mean Platelet Volume 9.6 fL (7.4-10.4); Monocytes # 1.6 10^3/uL (0.2-0.9); Monocytes % 9.1 %; Neutrophils # 12.85 10^3/uL (1.8-7.7); Neutrophils % 75.1 %; Nucleated Red Blood Cells % 0 %; Platelet Count 304 10^3/cmm (130-400); Red Blood Count 3.49 10^6/uL (4.1-5.3); Red Cell Distribution Width 13.6 % (12.1-15.1); White Blood Count 17.1 10^3/uL (4.0-10.0)
[2022-11-04] MEDS: iohexol 350 mg/mL 500 mL Btl (per mL) IV (20:02)
[2022-11-04 20:07] LABS: INR 1.21 (0.8-1.2)
[2022-11-04 20:09] LABS: Partial Thromboplastin Time 28.9 SECONDS (23.9-36.7)
[2022-11-04 20:12] LABS: Alanine Aminotransferase 123 U/L (0-33); Albumin Level 3.6 g/dL (3.5-5.2); Alkaline Phosphatase 186 U/L (35-105); Anion Gap 13.3 (5-19); Aspartate Amino Transferase 111 U/L (0-32); Blood Urea Nitrogen 17 mg/dL (8-23); Calcium 8.8 mg/dL (8.5-10.5); Carbon Dioxide 26 mmol/L (22-29); Chloride 103 mmol/L (98-107); Globulin 2.5 g/dL (1.3-4.6); Glomerular Filtration Rate 54.8 mL/min (90-130); Glucose 141 mg/dL (65-115); Osmolality Calculated 290 mOsm/kg (285-295); Potassium 4.3 mmol/L (3.5-5.1); Sodium 138 mmol/L (136-145); Total Bilirubin 0.5 mg/dL (0.15-1.2); Total Protein 6.1 g/dL (6.6-8.7)
[2022-11-04 20:13] LABS: Alcohol Level < 10 mg/dL (0-10)
--- NOTE | 2022-11-04 20:22 | CTR_ITS ---
PROCEDURE INFORMATION: Exam: CTA Chest With Contrast Exam date and time: 11/04/2022 9:41 PM Age: 72 years old Clinical indication: Abnormal findings; Abnormal lab test; Other: AMS; Prior surgery; Surgery date: Post-operative (0-2 days); Surgery type: Lap ezra yesterday. Breast bx. Patient HX: Elevated wbc and base trop. Per EMS, patient at home in recliner when suddendly slumped over and become unresponsive except for sternal rub. Last known well time at approx 1845. History of TIA. Had lap ezra yesterday. History of breast cancer. TECHNIQUE: Imaging protocol: Computed tomographic angiography of the chest with contrast. 3D rendering (Not supervised by radiologist): MIP and/or 3D reconstructed images were created by the technologist. Radiation optimization: All CT scans at this facility use at least one of these dose optimization techniques: automated exposure control; mA and/or kV adjustment per patient size (includes targeted exams where dose is matched to clinical indication); or iterative reconstruction. Contrast material: OMNI 350; Contrast volume: 100 ml; Contrast route: INTRAVENOUS (IV); REPORTING DATA: Count of CT and Cardiac NM exams in prior 12 months: This patient has received 2 known CTs and 0 known cardiac nuclear medicine studies in the 12 months prior to the current study. COMPARISON: CR (CHEST, ) 11/04/2022 7:45 PM RADIATION DOSE METRICS: Total DLP (mGy-cm): 1296.33 FINDINGS: Tubes, catheters and devices: Intubation with tip in the midthoracic trachea. Pulmonary arteries: Normal. No pulmonary emboli. Aorta: Unremarkable. No aortic aneurysm. No aortic dissection. Lungs: Filling defects in the distal trachea and proximal right mainstem bronchus is most likely mucus. Shallow ventilation with dependent atelectasis in both lower lobes and lingula. Mild scattered mosaic attenuation in both lungs. Pleural spaces: Unremarkable. No pneumothorax. No pleural effusion. Heart: Unremarkable. No cardiomegaly. No pericardial effusion. Lymph nodes: Unremarkable. No enlarged lymph nodes. Bones/joints: Mild degenerative changes and curvature of the thoracic spine. No acute fracture. Soft tissues: Unremarkable. PROCEDURE INFORMATION: Exam: CT Abdomen And Pelvis With Contrast Exam date and time: 11/04/2022 9:41 PM Age: 72 years old Clinical indication: Abnormal findings; Abnormal lab test; Other: AMS; Prior surgery; Surgery date: Post-operative (0-2 days); Surgery type: Lap ezra yesterday. Breast bx. Patient HX: Elevated wbc and base trop. Per EMS, patient at home in recliner when suddendly slumped over and become unresponsive except for sternal rub. Last known well time at approx 1845. History of TIA. Had lap ezra yesterday. History of breast cancer. TECHNIQUE: Imaging protocol: Computed tomography of the abdomen and pelvis with contrast. Radiation optimization: All CT scans at this facility use at least one of these dose optimization techniques: automated exposure control; mA and/or kV adjustment per patient size (includes targeted exams where dose is matched to clinical indication); or iterative reconstruction. Contrast material: OMNI 350; Contrast volume: 100 ml; Contrast route: INTRAVENOUS (IV); REPORTING DATA: Count of CT and Cardiac NM exams in prior 12 months: This patient has received 2 known CTs and 0 known cardiac nuclear medicine studies in the 12 months prior to the current study. COMPARISON: ES surgery / GI images 06/10/2018 7:36 AM RADIATION DOSE METRICS: Total DLP (mGy-cm): 1296.33 FINDINGS: Tubes, catheters and devices: Gastric tube with tip in the distal stomach. Liver: Unremarkable. No suspicious nodule. Gallbladder and bile ducts: Cholecystectomy clips. Mild stranding with minimal fluid in the gallbladder fossa, consistent with recent surgery. Intrahepatic and extrahepatic ductal dilatation. The proximal common bile duct measures up to 12 mm in diameter. No intraductal filling defect identified. Pancreas: Normal. No ductal dilation. Spleen: Calcified granulomas in the spleen. Adrenal glands: Normal. No mass. Kidneys and ureters: Hypodensities in the left kidney are too small to characterize but are most likely cysts. No follow-up imaging is recommended. The kidneys are otherwise unremarkable. No hydronephrosis. Stomach and bowel: Duodenal diverticula. Mild diverticulosis of the colon. No diverticulitis. The stomach and small bowel are unremarkable. No wall thickening or obstruction. Appendix: The appendix is visualized and is normal. Intraperitoneal space: Small amount of fluid anterior to the liver measures 70 Hounsfield units, consistent with blood products. Vasculature: Unremarkable. No abdominal aortic aneurysm. Lymph nodes: Unremarkable. No enlarged lymph nodes. Urinary bladder: Gilbert catheter in a decompressed urinary bladder. Reproductive: Unremarkable as visualized. Bones/joints: Curvature and degenerative changes of the lumbar spine. No acute fracture. Soft tissues: Fusiform enlargement of the superior right abdominus rectus muscle measuring up to 4.0 cm in thickness. Fat stranding in the periumbilical region and right upper abdomen, consistent with trocar sites. Small subcutaneous gas bubbles in the upper right abdominal wall, consistent with recent surgery. Mild body wall edema. Other findings: CT/CT angio chest w abd pel w con IMPRESSION: 1. No evidence for pulmonary embolus. 2. Shallow inspiration with atelectasis and mild air trapping. 3. Filling defects in the distal trachea and proximal right mainstem bronchus are most likely mucus. IMPRESSION: 1. Post cholecystectomy changes as described. 2. Hematoma in the upper right abdominus rectus muscle measuring up to 4.0 cm in thickness. This is most likely related to the recent surgery. 3. Small amount of blood along the anterior liver. 4. Intrahepatic and extrahepatic ductal dilatation. No visible intraductal filling defect. Follow-up with MRCP is recommended. COMMENTS: Consistent with the [employer]'s Incidental Findings Committee white paper (J Am Kelvin Radiol 2018): Any incidental renal lesion less than 1 cm or classified as too small to characterize, or any incidental cystic renal lesion characterized as simple-appearing, is likely benign. No follow-up imaging is recommended for these lesions per consensus recommendations based on imaging criteria.
--- NOTE | 2022-11-04 20:44 | ECG_ITS ---
[facility] Test Date: 2022-11-04 Pat Name: Sara Joiner Department: Room: Gender: Female Segment Producer: : 1950 Requested By: Chayito Gates Order Number: [id number] Pavan MD: Tal Riojas M.D. Measurements Intervals [place] Rate: 71 P: 83 VT: 162 QRS: 29 QRSD: 84 T: 73 QT: 410 QTc: 446 Interpretive Statements SINUS RHYTHM Compared to ECG 11/22/2020 11:13:03 No significant changes Electronically Signed On 11-05-2022 10:27:05 SALES AND MERCHANDISING ASSOCIATE by Tal Riojas M.D. [email or web address]
[2022-11-04 20:45] LABS: Add Urine Microscopic? NO; Charge for UA Resulting for Rev
[2022-11-04 20:46] LABS: Troponin(5th) Baseline 16 ng/L (0-10)
[2022-11-04 20:47] LABS: Bilirubin Urine Neg (Negative); Blood Urine Neg (Negative); Glucose Urine UA Norm (Normal); Ketones Urine Negative (Negative); Leukocyte Esterase Urine Negative (Negative); Nitrate Urine Negative (Negative); Protein Urine Neg (Negative); Specific Gravity, Urine 1.015 (1.005-1.030); Urine Appearance Clear (CLEAR); Urine Color Yellow (Yellow); Urobilinogen Urine Norm (Negative); pH Urine 5 (5-7)
[2022-11-04 20:47] LABS: Lactate (Lactic Acid level) 2.1 mmol/L (0.5-2.2)
[2022-11-04 20:50] LABS: Ammonia 34 umol/L (11-51)
[2022-11-04 20:50] LABS: ABG PCO2 43.4 mmHg (35-45); ABG PH Result 7.41 (7.35-7.45); Arterial Blood Gas Hematocrit 29.8 % (37-47); Base Excess ABG 2.4 mmol/L (-2.0-2.0); Blood Gas Sample Site Brachial, right; Blood Gas Sample Type Arterial; HCO3 ABG 27.4 mmol/L (22-26); Oxygen Device VENT
[2022-11-04 21:01] LABS: Amphetamines Screen Urine Negative (Negative); Barbiturates Screen Urine Negative (Negative); Benzodiazepines Screen Urine Negative (Negative); Cocaine Screen Urine Negative (Negative); Opiate Screen Urine Positive (Negative); PCP Screen Urine Negative (Negative); THC Screen Urine Negative (Negative)
[2022-11-04 21:20] LABS: Troponin 5 2HR 13.07 ng/L (0-10)
[2022-11-04 21:36] LABS: Troponin 5 2HR Delta -2.93 ABS# (0-10)
--- NOTE | 2022-11-04 22:31 | MRR_ITS ---
PROCEDURE INFORMATION: Exam: MR Abdomen Without Contrast Exam date and time: 11/04/2022 11:55 PM Age: 72 years old Clinical indication: Abdominal pain; Prior surgery; Surgery date: Post-operative (0-2 days); Surgery type: Gallbladder x 1 day; Patient HX: Gallbladder surgery yesterday/; Additional info: Bile duct dilitation TECHNIQUE: Imaging protocol: Magnetic resonance imaging of the abdomen without contrast. COMPARISON: CT angio chest w abd pel w con 11/04/2022 9:41 PM FINDINGS: Liver: Superior liver evaluation is limited by artifact. No definite abnormality. Gallbladder and bile ducts: The common bile duct is enlarged to 11 mm in maximum size which is similar to the comparison CT scan. The pancreatic duct is also prominent measuring 3 mm. The central intrahepatic bile ducts are also mildly prominent. There is no filling defect present to indicate a stone. Stable post cholecystectomy changes. Pancreas: See Gallbladder and bile ducts finding. Spleen: Unremarkable. No splenomegaly. Adrenal glands: Unremarkable. No mass. Kidneys and ureters: Left lower pole simple renal cysts largest measuring 1.5 cm is unchanged. Stomach and bowel: Visualized stomach and intestines are unremarkable. Intraperitoneal space: No free fluid. Vasculature: No abdominal aortic aneurysm. Bones/joints: Unremarkable. Soft tissues: Stable asymmetric enlargement of the right rectus sheath measuring 3.8 cm AP dimension consistent with hematoma. Minimal asymmetric right-sided body wall edema laterally is unchanged. Other findings: Minimal blood anterior to the liver is unchanged. MR/MR MRCP [id number] IMPRESSION: 1. Stable post cholecystectomy changes with dilated common bile duct to 1.1 cm with intrahepatic biliary ductal dilatation also present. No filling defect is seen to indicate a stone. 2. Stable minimal blood anterior to the liver which is likely postoperative. 3. Stable right rectus sheath hematoma.
[2022-11-04] MEDS: sodium chloride 0.9% 1,000 ML 999 ML IV (23:08)
[2022-11-05] VITALS (104 sets, daily range): BP systolic 96–151; BP diastolic 46–73; PULSE 64–126; RESP 10–27; TEMP 37.1–37.9; O2SAT 89–100
[2022-11-05] MEDS: rocuronium 10 mg/mL INJ 5mL 60 MG IVP (00:27)
[2022-11-05] MEDS: etomidate 2 mg/mL INJ SDV 10 mL 10 MG IVP (00:27)
--- NOTE | 2022-11-05 00:54 | USCV_ITS ---
Sara Joiner Age: 72 Gender: F : 1950 Exam Date: 11/05/2022 01:27 Ordering Phys: Javon Vaughn MD Technologist: NITHIN Exam Location: [facility] [place] Indication: sob s/p lapchole yesterday. Patient is still paralyzed from recurerium, on vent in ER-11. BP: 147 / 73 HR: 73 Rhythm: Sinus Technical Quality: Adequate MEASUREMENTS (Male / Female) Normal Values 2D ECHO LV Diastolic Diameter PLAX 2.9 cm 4.2 - 5.9 / 3.9 - 5.3 cm LV Systolic Diameter PLAX 1.9 cm IVS Diastolic Thickness 1.2 cm 0.6 - 1.0 / 0.6 - 0.9 cm IVS Systolic Thickness 1.8 cm LVPW Diastolic Thickness 1.4 cm 0.6 - 1.0 / 0.6 - 0.9 cm LVPW Systolic Thickness 1.4 cm LVOT Diameter 1.9 cm LV Ejection Fraction 2D Teich 67.6 % LV Ejection Fraction MOD 2C 64.6 % LV Ejection Fraction 2C AL 64.1 % LA Diameter 3.7 cm LA Width 3.2 cm LA Height 4.7 cm RA Width 3.3 cm RA Height 4.5 cm Aorta at Sinotubular Diameter 2.7 cm IVC Diameter 1.8 cm M-MODE Aortic Annulus Diameter 2.6 cm LA Ao Ratio MM 1.6 MV E Point Septal Separation 0.3 cm DOPPLER AV Peak Velocity 204.0 cm/s LVOT Peak Velocity 231.0 cm/s AV Area Cont Eq vti 3.1 cm squared AV Area Cont Eq pk 3.1 cm squared MV Area PHT 2.6 cm squared Mitral E to A Ratio 0.9 MV E' Velocity 67.5 cm/s Mitral E to MV E' Ratio 15.1 Mitral E to LV E' Lateral Ratio 12.9 Mitral E to LV E' Septal Ratio 18.1 TR Peak Velocity 278.3 cm/s TR Peak Gradient 31.0 mmHg TV Peak E Velocity 69.0 cm/s Right Atrial Pressure 5.0 mmHg Pulmonary Artery Systolic Pressu 36.0 mmHg PV Peak Velocity 116.0 cm/s RV Acceleration Time 0.1 s RV Ejection Time 0.4 s RV AcT/ET 0.3 FINDINGS Left Ventricle Left ventricle is normal in size. LV systolic function is normal with EF of 55 to 60%. No regional wall motion abnormalities are seen. Grade 1 diastolic dysfunction Right Ventricle Normal in size and function Right Atrium Normal in size Left Atrium Normal in size Mitral Valve Moderate mitral annular calcification. Mild mitral regurgitation. Aortic Valve Aortic valve is thickened and calcified. Mild aortic stenosis with mean gradient across aortic valve of 9mmHg. Aortic valve area is 3cm2. Tricuspid Valve Trace tricuspid regurgitation. RVSP is 35-40mmHg. This is consistent with mild pulmonary hypertension Pulmonic Valve Not well visualized Pericardium Normal Aorta Normal in size IVC Appears to be normal CONCLUSIONS LV systolic function is normal with EF of 55-60% Grade 1 diastolic dysfunction Moderate mitral annular calcifcation. Mild mitral regurgitation Aortic valve is thickened and calcified. Mild aortic stenosis with mean gradient across aortic valve of 9 mmHg. Trace tricuspid regurgitation Mild pulmonary hypertension Compared to prior echocardiogram from 2020, patient has mild aortic stenosis. Tal Riojas MD (Electronically Signed) Final Date: 05 November 2022 12:37 S
--- NOTE | 2022-11-05 00:58 | P.HP_ITS ---
Providers/Chief Complaint Primary Care Provider: Agnes Alfaro MD Chief Complaint: stroke like symptoms History of Present Illness Sara Joiner is a 72 year old female with past medical history of diastolic dysfunction, breast cancer post adjuvant hormonal chemotherapy and radiation therapy, post bilateral breast plastic surgery reconstruction, CVA who was discharged today from outside hospital where she was admitted for planned laparoscopic cholecystectomy which she underwent on Friday 11/03. As per the family who is at bedside when patient was discharged she was AOx3, able to walk around by herself but complaining of abdominal pain. As per the family members at bedside she was not complaining of anything new including nausea vomiting, weakness in any of her arms other than abdominal pain. As per the documentation in the ER today evening when her was trying to wake her up to get her back in bed he found her to be confused, lethargic mumbling her words hence EMS was called. Upon arrival EMS found her responsive only to painful stimulus which failed attempted ablation and she was given rocuronium and etomidate in the field after which Daniel airway was placed. On arrival to the ER patient was unresponsive and hence was intubated to protect airway. On examination patient is on FiO2 of 50%, tidal volume of 450 saturating 100%, blood pressure 130 over 60 mmHg with a heart of 78. Patient has been afebrile. Patient's daughter and sister at the bedside. On arrival to the ER multiple blood work was done and CTA head and neck along with chest abdomen pelvis was done which ruled out stroke, pulmonary embolism. MRCP was done which is consistent with postoperative changes all as documented below. Review of Systems General: Reports: ROS unobtainable due to endotracheal tube Medications/Allergies Home Medications Medication Instructions Recorded Confirmed Last Taken Type aspirin 81 mg tablet,delayed 81 mg PO DAILY@12/13/19 11/11/21 11/07/21 His tory release (Aspir-) buspirone 10 mg tablet 10 mg PO BID@12/13/19 11/11/21 11/12/21 History cholecalciferol (vitamin D3) 50 2,000 unit PO DAILY@12/13/19 11/11/21 11/12/21 History mcg (2,000 unit) capsule (Vitamin D3) cranberry 400 mg capsule 400 mg PO DAILY@12/13/19 11/11/21 11/12/21 History naproxen 500 mg tablet 500 mg PO BID PRN Pain 12/13/19 11/11/21 11/12/21 History tramadol 50 mg tablet 100 mg PO TID PRN Pain 12/13/19 11/11/21 11/12/21 History furosemide 20 mg tablet (Lasix) 20 mg PO DAILY@08 03/20/20 11/11/21 11/12/21 History potassium chloride 10 mEq 10 meq PO BID@03/20/20 11/11/21 11/12/21 History capsule,extended release tizanidine 2 mg capsule 2 mg PO DAILY PRN muscle 03/20/20 11/11/21 11/12/21 Rx spasticity #30 caps duloxetine 60 mg capsule,delayed 120 mg PO DAILY@08 11/22/20 11/11/21 11/12/21 History release (Cymbalta) gabapentin 600 mg tablet 600 mg PO QID 11/22/20 11/11/21 11/12/21 History atorvastatin 80 mg tablet 80 mg PO DAILY 10/15/21 11/11/21 11/12/21 History clopidogrel 75 mg tablet 75 mg PO DAILY 10/15/21 11/11/21 11/07/21 History lisinopril 10 mg tablet 10 mg PO DAILY 10/15/21 11/11/21 11/12/21 History mupirocin 2 % topical ointment 1 applic topical TID 10/15/21 11/11/21 Unknown History polyethylene glycol 3350 17 17 g PO DAILY 10/15/21 11/11/21 11/12/21 History gram/dose oral powder (Miralax) Allergies Allergy/AdvReac Type Severity Reaction Status Date / Time bupropion [From Wellbutrin] AdvReac muscle Verified 11/04/22 19:44 cramps PFSH Acute PFSH: Medical History (Updated 11/05/22 @ 01:02 by Javon Vaughn MD) Bilateral carotid artery stenosis Breast cancer, right Depression Fibromyalgia Hypertension Peripheral neuropathy Radiation fibrosis TIA (transient ischemic attack) Surgical History (Updated 11/05/22 @ 01:02 by Javon Vaughn MD) History of colonoscopy 2004 hx of polyps and diverticulitis History of tonsillectomy S/P cholecystectomy Status post colonoscopy (11/13/21) Diverticulosis Status post right breast lumpectomy with re-excision with SLNB Family History Other Cancer Diabetes Hypertension Stroke Denies family history of CAD (coronary artery disease) Social History Smoking and tobacco status: former smoker Alcohol intake: current Alcohol intake frequency: holidays/special occasions only Housing: House Vitals/I&O/Wt Last Vital Signs Temp 98.3 F 11/04/22 19:38 Pulse 81 11/05/22 00:25 Resp 14 11/05/22 00:25 BP 147/73 11/05/22 00:25 Pulse Ox 100 11/05/22 00:25 O2 Del Method 11/05/22 00:25 FiO2 50 11/04/22 20:54 11/04/22 11/04/22 11/05/22 14:59 22:59 06:59 Intake Total 14.492 / 14.492 26.308 / 40.800 Balance 14.492 / 14.492 26.308 / 40.800 Weight last 48 hrs Weight 93.44 kg Physical Exam Narrative: General: Intubated, sedated HEENT: PERRLA, pupils bilaterally equal and reactive Chest: Normal vesicular breath sounds, no added sounds, equal good air entry bilaterally CVS: S1-S2 regular, no murmurs, no tachycardia, no gallops, no rubs Abdomen: Soft, nontender, no organomegaly, bowel sounds present Neuro: Intubated, sedated Urinary Catheter Management: Gilbert: Cath Placed During This Visit: yes Urinary Catheter Date of Insertion: 11/04/22 Urinary Catheter Time of Insertion: 20:27 Data 11/04/22 19:14 11/04/22 19:14 A&P Assessment and plan (1) Encephalopathy: Unknown etiology. Stroke has been ruled out with a negative CTA. Pulmonary embolism has been ruled out with a negative CTA of the chest. Troponin cycled negative. Ammonia levels within normal limits. No electrode abnormality with creatinine at baseline. MRCP consistent with postoperative changes and is negative for cholecystitis. Urine drug screen, alcohol levels appreciated. Could be secondary to polypharmacy in setting of postoperative status. Patient at home takes BuSpar 10 mg twice daily, Cymbalta 120 mg daily, gabapentin 600 mg 4 times daily. Patient had 2 tablets of [place] after being discharged from the hospital. For now decrease the dose of Cymbalta to 60 mg daily, gabapentin to 200 mg 3 times daily to avoid withdrawal. Continue home dose of BuSpar. Hold off on pain medications. Infectious cause less likely. But given acute severe illness for now continue with empiric IV vancomycin and Zosyn as per creatinine clearance. Check blood culture, MRSA swab, urine culture, sputum culture, procalcitonin, respiratory viral panel. Check CPK. Normal saline at 75 cc/h. (2) Respiratory failure: Intubated to protect airway given acute encephalopathy which could be secondary to polypharmacy along with paralyzing medications given in the field for Daniel Airway resuscitation. Repeat ABG. Will change ventilator setting as per the repeat results. Sedation vacation in a.m. DuoNebs every 6 hours, budesonide twice daily. Sputum culture and respiratory viral panel as above. (3) Post-operative state: Post laparoscopic cholecystectomy at outside hospital. MRCP consistent with postoperative changes with possible rectus sheath hematoma. We will consult surgery for further recommendations. (4) S/P cholecystectomy: (5) Rectus sheath hematoma: (6) Transaminitis: Appreciate MRCP results. Check salicylate, Tylenol, alcohol, CPK, LDH, GGT levels. Most likely postoperative state. IV hydration as above. Continue to monitor daily. Ammonia levels within normal limits. (7) Hypertension: Goal blood pressure less than 140/90 mmHg. Takes lisinopril 10 mg daily at home. For now we will continue and titrate as per blood pressure monitoring. (8) Polypharmacy: As above. (9) Bilateral carotid artery stenosis: With history of TIA and CVA in the past. Hold off on atorvastatin and clopidogrel for now given transaminitis and rectus sheath hematoma. Plan Anemia: Most likely postoperative. Check vitamin B12, folate, iron panel. Sedation: Propofol, fentanyl. Glycemic control: Not needed. Check A1c. Nutrition: NPO. Intubated. CODE STATUS: Discussed in detail with patient's daughter and sister at bedside. Full code. PUD prophylaxis: Protonix DVT prophylaxis: SCDs, hold off on medical prophylaxis given postoperative rectus sheath hematoma. Discharge planning: Home with caregiver once patient is medically stable Admit to ICU This documentation was created by FireEye preassembler and inspector software. Every effort was made to ensure accuracy of preassembler and inspector. Any obvious errors or omissions should be clarified with the author of the document. Attestations Medical Necessity Statement*: Admission for more than 2 midnights for manage ment of respiratory failure requiring mechanical ventilation, acute encephalopathy most likely secondary to polypharmacy in postoperative status Coding Level of Care Code Critical Care >/= 30 minutes Critical care time (in minutes): 80 The high probability of a clinically significant, sudden or life threatening deterioration, as referenced in this documentation, required my full and direct attention, intervention and personal management. The critical care time shown is in addition to time spent performing any reported separately billable procedures and includes the following: [x] Data and vital sign review and interpretation [x ] Patient assessment, examination and intervention [x] Medication orders and management [x] Patient/Family updates as able [x] Care Coordination and Documentation. Diagnoses Encephalopathy G93.40 Respiratory failure J96.90 Post-operative state Z98.890 S/P cholecystectomy Z90.49 Rectus sheath hematoma S30.1XXA Transaminitis R74.01 Hypertension I10 Polypharmacy Z79.899 Bilateral carotid artery stenosis I65.23
[2022-11-05] MEDS: piperacillin-tazobactam 3.375 GM in sodium chloride 0.9% (plus) 50 ML IV ×2 (01:10→09:12)
[2022-11-05] MEDS: vancomycin 1,000 MG in sodium chloride 0.9% 250 ML 250 MG IV (01:43)
[2022-11-05 02:10] LABS: ABG PCO2 44.3 mmHg (35-45); Alveolar-Arterial Oxygen Gradi 23.1 mmHg (5-10); Arterial Blood Gas Hematocrit 32.1 % (37-47); Base Excess ABG 2.5 mmol/L (-2.0-2.0); Blood Gas Allen Test Pos; Blood Gas Sample Site Radial, right; Blood Gas Sample Type Arterial; Carboxyhemoglobin 1.1 %THgb (0.4-20.1); HCO3 ABG 27.7 mmol/L (22-26); HGB O2 Sat 97.8 % (95-100); Ionized Calcium Level - ABG 1.2 mmol/L (1.1-1.4); Methemoglobin 0.9 % (0.4-1.5); Oxygen Device VENT; Oxygen Saturation ABG 99.7; Potassium Level - ABG 3.7 mmol/L (3.5-5.0); Total Hemoglobin 10.5 g/dL (12-16)
--- NOTE | 2022-11-05 02:24 | ECG_ITS ---
[facility] Test Date: 2022-11-05 Pat Name: Sara Joiner Department: Room: [facility] Gender: Female Cutter V Groove: : 1950 Requested By: Chayito Gates Order Number: [id number] Pavan MD: Tal Riojas M.D. Measurements Intervals [place] Rate: 74 P: 70 MI: 159 QRS: -3 QRSD: 89 T: 62 QT: 396 QTc: 442 Interpretive Statements SINUS RHYTHM Compared to ECG 11/04/2022 20:44:13 No significant changes Electronically Signed On 11-05-2022 10:28:48 OBSTETRICS GYNECOLOGY MD by Tal Riojas M.D. [id number]
--- NOTE | 2022-11-05 02:50 | PC.NURSE ---
Pt arrived from from ER to ICU 5 @0250 via stretcher on continuos monitoring. Continuos monitoring continued. Pt is intubated and able to follow commands. Abrasion noted on upper lip.
--- NOTE | 2022-11-05 03:49 | PC.PHAR ---
Pharmacokinetic dosing service Date: 11/05/22 Time: 034 Objective: Patient: Sara Joiner Floor: ICU-5 Age: 72 yo Serum creatinine: 1.0 mg/dL Height: 65.0 Inches Weight (kg): 93.44 Diagnosis: Relevant medical/social history: Cultures and sensitivities: Other labs: Assessment: IBW (kg): 57.00 Dosing wt(kg): 93.44 Estimated Creatinine clearance (ml/min): 47.1 CRCL method: Cockcroft and Gault using ibw(default). Drug selected: Vancomycin Loading dose (mg): 0 Vd (liters): 84.1 (factor used: 0.9 L/kg) Oni (hr-1): 0.043 Half life (hrs): 16.12 Recommended dose: 1500 mg Interval: 24 hrs Infusion time (hrs): 1.5 Predicted peak (mcg/mL): 26.8 Predicted trough (mcg/mL): 10.18 Total body weight is being used for vancomycin dosing. Renal function is stable [ ] /unstable [ ] Recommendations: Give Vancomycin 1500 mg q 24 hrs with an expected Cpeak of 26.8 mcg/ml and an expected Ctrough of 10.18 mcg/ml Renal dosing of other antibiotics (review renal dosing of other medications and list guidelines here): Thank you for the consult, will continue to follow. Signature: Leela Gonsales [facility]
[2022-11-05] MEDS: sodium chloride 0.9% 1,000 ML 75 ML IV (04:02)
[2022-11-05] MEDS: pantoprazole 40 mg SDV IVP (04:03)
[2022-11-05 04:45] LABS: Basophils # 0.1 10^3/uL (0.0-0.1); Basophils % 0.4 %; Eosinophils # 0.1 10^3/uL (0.0-0.8); Eosinophils % 0.5 %; Hematocrit 28.6 % (37.0-47.0); Hemoglobin 8.9 g/dL (11.5-15.3); Lymphocytes % 15.3 %; Mean Corpuscular HGB Conc 31.1 g/dL (30.0-36.0); Mean Corpuscular Hemoglobin 29.5 pg (28.0-34.0); Mean Corpuscular Volume 94.7 fl (81-99); Mean Platelet Volume 9.6 fL (7.4-10.4); Monocytes % 7.1 %; Neutrophils # 10.17 10^3/uL (1.8-7.7); Neutrophils % 76.5 %; Nucleated Red Blood Cells % 0 %; Platelet Count 232 10^3/cmm (130-400); Red Blood Count 3.02 10^6/uL (4.1-5.3); White Blood Count 13.3 10^3/uL (4.0-10.0)
[2022-11-05 05:08] LABS: Alanine Aminotransferase 164 U/L (0-33); Albumin Level 3.1 g/dL (3.5-5.2); Alkaline Phosphatase 178 U/L (35-105); Anion Gap 12.8 (5-19); Aspartate Amino Transferase 208 U/L (0-32); Blood Urea Nitrogen 16 mg/dL (8-23); Calcium 8.2 mg/dL (8.5-10.5); Carbon Dioxide 25 mmol/L (22-29); Chloride 105 mmol/L (98-107); Globulin 2.5 g/dL (1.3-4.6); Glomerular Filtration Rate 70.9 mL/min (90-130); Glucose 109 mg/dL (65-115); Magnesium 1.9 mg/dL (1.7-2.3); Osmolality Calculated 290 mOsm/kg (285-295); Potassium 3.8 mmol/L (3.5-5.1); Sodium 139 mmol/L (136-145); Total Bilirubin 1.2 mg/dL (0.15-1.2); Total Protein 5.6 g/dL (6.6-8.7)
[2022-11-05 05:12] LABS: Troponin 5 6HR 14.22 ng/L (0-10)
[2022-11-05 05:19] LABS: Procalcitonin 0.44 ng/mL (0-0.5)
[2022-11-05 05:30] LABS: Creatine Phosphokinase 196 U/L (26-192); Lactate Dehydrogenase 294 U/L (135-214); Lipase 186 U/L (13-60)
[2022-11-05 05:38] LABS: Acetaminophen < 5.0 ug/mL (10-30); Alcohol Level < 10 mg/dL (0-10); Salicylate < 0.3 mg/dL (3-10); Troponin 5 6HR Delta -1.78 ng/L (0-12)
[2022-11-05 06:09] LABS: Gamma Glutamyl Transferase 438 U/L (5-36); Iron 27 ug/dL (37-145); Percent Saturation 11.7 % (20-50); Total Iron Binding Capacity 229 mcg/dl; Unsaturated Iron Binding 202 ug/dL (112-347)
[2022-11-05 06:25] LABS: Vitamin B12 1042 pg/mL (232-1245)
[2022-11-05 06:49] LABS: Adenovirus Not Detected (NOT DETECT); Chlamydia Pneumoniae Not Detected (NOT DETECT); Coronavirus 229E,HKU1,NL63,OC4 Not Detected (NOT DETECT); Human Metapneumovirus Not Detected (NOT DETECT); Human Rhinovirus/Enterovirus Not Detected (NOT DETECT); Influenza A Not Detected (NOT DETECT); Influenza A H1 Not Detected (NOT DETECT); Influenza A H1-2009 Not Detected (NOT DETECT); Influenza A H3 Not Detected (NOT DETECT); Influenza B Not Detected (NOT DETECT); Mycoplasma Pneumoniae Not Detected (NOT DETECT); Parainfluenza Virus Type 1 Not Detected (NOT DETECT); Parainfluenza Virus Type 2 Not Detected (NOT DETECT); Parainfluenza Virus Type 3 Not Detected (NOT DETECT); Parainfluenza Virus Type 4 Not Detected (NOT DETECT); Respiratory Syncytial Virus A Not Detected (NOT DETECT); Respiratory Syncytial Virus B Not Detected (NOT DETECT); SARS-COV-2 Not Detected (NOT DETECT)
[2022-11-05 07:02] LABS: Folate Level > 20.0 ng/mL (4.8-37.3)
--- NOTE | 2022-11-05 07:15 | PC.PHAR ---
Addendum entered by Paz Toledo 11/05/22 12:26: Meds updated after patient was extubated. Gabapentin 600mg decreased to BID - prescribed as QID but patient states she only takes BID Addendum entered by Geneva Montoya 11/05/22 10:02: medications entered are from what ext med history shows has been filled recently and what was on previous entered med list-director of agriculture states if pts visitor comes back she will call er to let us know to see if visitor can verify medications Addendum entered by Geneva Montoya 11/05/22 08:09: still no answer from Original Note: pt unable to verify medications-left message for
[2022-11-05] MEDS: budesonide 0.5 mg/2 mL Neb INHALATION ×2 (08:08→19:51)
[2022-11-05] MEDS: albuterol 2.5 mg/3 mL Neb INHALATION ×3 (08:08→19:51)
[2022-11-05] MEDS: lisinopril 10 mg Tablet PO (09:08)
[2022-11-05] MEDS: gabapentin 300 mg Capsule 600 MG PO (09:08)
[2022-11-05] MEDS: BuSPIRONE 10 mg Tablet PO (09:08)
[2022-11-05] MEDS: duloxetine 60 mg Capsule PO (09:08)
--- NOTE | 2022-11-05 09:44 | P.CONIM_ITS ---
Providers/Reason For Consult Consulting Physician/Specialty*: Hospitalist Reason for Consult*: Status post laparoscopic cholecystectomy Attending Physician: Aneesh Styles MD Primary Care Provider: Agnes Alfaro MD History of Present Illness History of Present Illness Sara Joiner is a 72 year old female who presents to the emergency room unresponsive. The patient was intubated. The patient underwent a CT scan of her chest, abdomen and pelvis. There was no significant findings. The patient does have some dilated intrahepatic biliary radicles. The patient's common bile duct is slightly dilated. There is a small amount of fluid in the gallbladder fossa. The patient underwent an MRCP. This revealed no filling defects. This is consistent with the patient's liver function tests. The patient's LFTs are elevated but the patient's total bilirubin is at the upper limits of normal. The patient may have passed a stone recently. I was consulted to evaluate this patient from a surgical standpoint. The patient underwent a laparoscopic cholecystectomy 2 days ago. This was reportedly unremarkable. Reportedly, the patient was found unresponsive at home. There are some question whether the patient may have overdosed on her pain medication. An ambulance was called and the patient was transported here. Review of Systems General: Reports: ROS unobtainable due to endotracheal tube Medications/Allergies Home Medications Medication Instructions Recorded Confirmed Last Taken Type buspirone 10 mg tablet 10 mg PO BID@12/13/19 11/05/22 11/12/21 History cholecalciferol (vitamin D3) 50 2,000 unit PO DAILY@12/13/19 11/05/22 11/12/21 History mcg (2,000 unit) capsule (Vitamin D3) cranberry 400 mg capsule 400 mg PO DAILY@12/13/19 11/05/22 11/12/21 History naproxen 500 mg tablet 500 mg PO BID PRN Pain 12/13/19 11/11/21 11/12/21 History tramadol 50 mg tablet 100 mg PO TID PRN Pain 12/13/19 11/11/21 11/12/21 History furosemide 20 mg tablet (Lasix) 20 mg PO DAILY@03/20/20 11/05/22 11/12/21 History potassium chloride 10 mEq 10 meq PO BID@03/20/20 11/11/21 11/12/21 History capsule,extended release tizanidine 2 mg capsule 2 mg PO DAILY PRN muscle 03/20/20 11/11/21 11/12/21 Rx spasticity #30 caps duloxetine 60 mg capsule,delayed 120 mg PO DAILY@08 11/22/20 11/05/22 11/12/21 History release (Cymbalta) gabapentin 600 mg tablet 600 mg PO QID 11/22/20 11/05/22 11/12/21 History atorvastatin 80 mg tablet 80 mg PO DAILY 10/15/21 11/05/22 11/12/21 History clopidogrel 75 mg tablet 75 mg PO DAILY 10/15/21 11/05/22 11/07/21 History lisinopril 10 mg tablet 10 mg PO DAILY 10/15/21 11/11/21 11/12/21 History mupirocin 2 % topical ointment 1 applic topical TID 10/15/21 11/11/21 Unknown History polyethylene glycol 3350 17 17 g PO DAILY 10/15/21 11/11/21 11/12/21 History gram/dose oral powder (Miralax) aspirin 81 mg tablet,delayed 81 mg PO DAILY 11/05/22 11/05/22 Unknown History release hydrocodone 5 mg-acetaminophen 325 1 - 2 tab PO Q6H PRN Pain 11/05/22 11/05/22 Unknown History mg tablet Allergies Allergy/AdvReac Type Severity Reaction Status Date / Time bupropion [From Wellbutrin] AdvReac muscle Verified 11/04/22 19:44 cramps Current Medications Generic Name Dose Route Start Last Admin Trade Name Freq PRN Reason Stop Dose Admin Albuterol Sulfate 2.5 mg 11/05/22 08:00 11/05/22 08:08 Albuterol 2.5 Mg/3 Ml Neb INHALATION 2.5 mg Q6H.RESP ANICETO Administration Budesonide 0.5 mg 11/05/22 08:00 11/05/22 08:08 Budesonide 0.5 Mg/2 Ml Neb INHALATION 0.5 mg BID.RESPIRATORY ANICETO Administration Buspirone HCl 10 mg 11/05/22 08:00 11/05/22 09:08 Buspirone 10 Mg Tablet PO 10 mg BID@ ANICETO Administration Docusate Sodium 100 mg 11/05/22 09:00 11/05/22 09:05 Docusate Sodium 100 Mg Capsule PO Not Given BID ANICETO Duloxetine HCl 60 mg 11/05/22 08:00 11/05/22 09:08 Duloxetine 60 Mg Capsule PO 60 mg DAILY@08 ANICETO Administration Gabapentin 600 mg 11/05/22 09:00 11/05/22 09:08 Gabapentin 300 Mg Capsule PO 600 mg DAILY ANICETO Administration Propofol 1,000 mg in 100 mls @ 0 mls/hr 11/04/22 19:45 11/05/22 08:55 Diprivan IV 0 mcg/kg/min .Q0M ANICETO 0 mls/hr Titration Protocol Per Protocol Fentanyl 1,000 mcg/ Sodium 100 mls @ 0 mls/hr 11/04/22 20:45 11/05/22 06:21 Chloride IV 75 mcg/hr .Q0M ANICETO 7.5 mls/hr Administration Protocol Per Protocol Piperacillin Sod/Tazobactam 50 mls @ 12.5 mls/hr 11/05/22 09:00 11/05/22 09:12 Sod 3.375 gm/ Sodium Chloride IV 12.5 mls/hr Q8H ANICETO Administration Protocol Sodium Chloride 1,000 mls @ 75 mls/hr 11/05/22 03:27 11/05/22 04:02 Sodium Chloride 0.9% IV 75 mls/hr .[id number] ANICETO Administration Ipratropium [place] 0.5 mg 11/05/22 08:00 11/05/22 08:08 Ipratropium 0.5 Mg/2.5 Ml Neb INHALATION Not Given Q6H.RESP ANICETO Lisinopril 10 mg 11/05/22 09:00 11/05/22 09:08 Lisinopril 10 Mg Tablet PO 10 mg DAILY ANICETO Administration Pantoprazole Sodium 40 mg 11/05/22 03:27 11/05/22 04:03 Pantoprazole 40 Mg Sdv IVP 40 mg Q24H ANICETO Administration PFSH Acute PFSH: Medical History Bilateral carotid artery stenosis Breast cancer, right Depression Fibromyalgia Hypertension Peripheral neuropathy Radiation fibrosis TIA (transient ischemic attack) Surgical History History of colonoscopy 2004 hx of polyps and diverticulitis History of tonsillectomy S/P cholecystectomy Status post colonoscopy (11/13/21) Diverticulosis Status post right breast lumpectomy with re-excision with SLNB Family History Other Cancer Diabetes Hypertension Stroke Denies family history of CAD (coronary artery disease) Social History Smoking and tobacco status: former smoker Alcohol intake: current Alcohol intake frequency: holidays/special occasions only Housing: House Vitals/I&O/Wt Last Vital Signs Temp 98.7 F 11/05/22 09:15 Pulse 81 11/05/22 09:15 Resp 14 11/05/22 08:08 BP 107/60 11/05/22 09:15 Pulse Ox 96 11/05/22 09:15 O2 Del Method 11/05/22 09:15 O2 Flow Rate 35 11/05/22 08:08 FiO2 35 11/05/22 09:15 11/04/22 11/05/22 11/05/22 22:59 06:59 14:59 Intake Total 14.492 / 14.492 1422.323 / 1436.815 13.58 / 13.58 Output Total 600 / 600 Balance 14.492 / 14.492 1422.323 / 1436.815 -586.42 / -586.42 Weight last 48 hrs Weight 224 lb 12.8 oz Weight 206 lb Physical Exam Narrative: Generally: Intubated and sedated HEENT: Normocephalic atraumatic, pupils equal round and reactive to light Neck: The patient has no masses that I can appreciate. The patient's trachea is midline. The patient has no thyromegaly Chest: Nontender to palpation Lungs: Clear to auscultation and percussion. The patient is on mechanical venti lation. Heart: Is regular rate and rhythm without murmurs. There is no S3 or S4. There is no rubs clicks or JVD noted. Abdomen: Obese, the patient has 4 typical incisions for laparoscopic cholecyste ctomy. There is bruising around some of the incisions mostly the umbilical incision. The patient's abdomen is nontender. It is nondistended. The patient has normal active bowel sounds. There were no masses or hernias that I can appreciate Pelvis is stable both AP medial compression Extremities: There is no obvious deformities or point tenderness suggestive of fracture. The patient has good capillary refill in both her hands and feet. The patient has 2+ radial, dorsalis pedis and posterior tibialis pulses Neurologic: The patient sedated. Urinary Catheter Management: Gilbert: Cath Placed During This Visit: yes Reason for Continuing Indwelling Catheter: Accurate Measurement of Urinary Output in Critically Ill Patients Urinary Catheter Date of Insertion: 11/04/22 Urinary Catheter Time of Insertion: 20:27 Data 11/05/22 04:37 11/05/22 04:37 Micro: Microbiology 11/05/22 04:20 Gram Stain - Final Sputum - Endotracheal Tube Aspirate 11/05/22 04:20 Bacterial Antigens - Final Urine Kidney 11/04/22 20:20 Legionella Urinary Antigen - Final Urine Catheterized 11/04/22 00:52 Blood Culture - Preliminary Blood SPECIMEN COLLECTED 11/04/22 00:39 Blood Culture - Preliminary Blood SPECIMEN COLLECTED Attestation for Other Data: I personally reviewed and interpreted the following: (I reviewed all the patient's labs. I reviewed the CT scan of the patient's chest, abdomen and pelvis as well as the patient's MRCP.) A&P Assessment and plan (1) S/P cholecystectomy: I do not appreciate any complications from the patient's laparoscopic cholecystectomy. I suspect the patient's liver function should continue to resolve. Please reconsult for questions or concerns. (2) Post-operative state: The exact etiology of the patient's hypotension and unresponsiveness is unclear. It does not seem to be related to the patient's surgical intervention. Thank you so much for this consult Coding Level of Care Code Acute Code for Chg Fwd Diagnoses S/P cholecystectomy Z90.49 Post-operative state Z98.890
--- NOTE | 2022-11-05 12:21 | P.PN_ITS ---
Subjective Subjective: Successfully extubated today Able to follow commands General surgery recommendations appreciated Sister at the bedside Discontinue IV antibiotics and discontinue sedatives No need of IV fluids We will let her have mechanical soft diet Requested PT Vitals/I&O/Wt Last Vital Signs Temp 98.7 F 11/05/22 09:15 Pulse 81 11/05/22 09:15 Resp 10 L 11/05/22 10:35 BP 107/60 11/05/22 09:15 Pulse Ox 95 11/05/22 10:35 O2 Del Method 11/05/22 09:15 O2 Flow Rate 35 11/05/22 08:08 FiO2 30 11/05/22 10:35 11/04/22 11/05/22 11/05/22 22:59 06:59 14:59 Intake Total 14.492 / 14.492 1422.323 / 1436.815 13.58 / 13.58 Output Total 600 / 600 Balance 14.492 / 14.492 1422.323 / 1436.815 -586.42 / -586.42 Weight last 48 hrs Weight 101.968 kg Weight 93.44 kg Physical Exam Narrative: Patient is awake and alert Surgical scar without any active complications Patient is able to follow commands Very pleasant cooperative Hemodynamically stable Doing well no audible stridor or wheezing No active deficits S1, S2 Urinary Catheter Management: Gilbert: Cath Placed During This Visit: yes Reason for Continuing Indwelling Catheter: Accurate Measurement of Urinary O utput in Critically Ill Patients Urinary Catheter Date of Insertion: 11/04/22 Urinary Catheter Time of Insertion: 20:27 Data 11/05/22 04:37 11/05/22 04:37 Micro: Microbiology 11/05/22 04:20 Gram Stain - Final Sputum - Endotracheal Tube Aspirate 11/05/22 04:20 Bacterial Antigens - Final Urine Kidney 11/04/22 20:20 Legionella Urinary Antigen - Final Urine Catheterized 11/04/22 00:52 Blood Culture - Preliminary Blood SPECIMEN COLLECTED 11/04/22 00:39 Blood Culture - Preliminary Blood SPECIMEN COLLECTED A&P Assessment and plan (1) Bilateral carotid artery stenosis: (2) Polypharmacy: (3) Hypertension: (4) Rectus sheath hematoma: (5) Post-operative state: (6) Transaminitis: (7) S/P cholecystectomy: (8) Encephalopathy: (9) Respiratory failure: (10) Status post right breast lumpectomy: (11) Peripheral neuropathy, toxic: Plan Respiratory failure requiring mechanical ventilation Successfully extubated 11/05 Related to polypharmacy Readjust her anxiolytics and opioids Status post recent laparoscopic cholecystectomy no postop complications Discontinue IV antibiotics I will let patient eat Monitor her blood pressure She is full code DVT prophylaxis on hold secondary to hematoma Abnormal transaminases: Trend for now Rectus sheath hematoma: Hemoglobin stable Hemodynamically stable Holding medications Tramadol, naproxen, anxiolytics Disposition: We will request PT, depending on PT evaluation most likely she will be able to go home in next 24 to 30 hours Sister has been updated who is at the bedside ICU nurse updated, RT updated Sore throat: Continue Cetacaine spray Attestations Medical Necessity Statement*: Continue ICU management Coding Level of Care Code 83252 Diagnoses Bilateral carotid artery stenosis I65.23 Polypharmacy Z79.899 Hypertension I10 Rectus sheath hematoma S30.1XXA Post-operative state Z98.890 Transaminitis R74.01 S/P cholecystectomy Z90.49 Encephalopathy G93.40 Respiratory failure J96.90 Status post right breast lumpectomy Z98.890 Peripheral neuropathy, toxic
[2022-11-05] MEDS: cetacaine Spray 5 gm Can 1 SPRAY TOPICAL (12:42)
--- NOTE | 2022-11-05 13:06 | PC.NURSE ---
Waste Fentanyl Wasted 75 mls of Fentanyl with MARSHALL Lawrence.
[2022-11-05] MEDS: ipratropium 0.5 mg/2.5 mL Neb INHALATION ×2 (13:44→19:51)
[2022-11-05] MEDS: morphine 4 mg/mL SDV 1 mL 2 MG IVP (19:48)
[2022-11-06] VITALS (40 sets, daily range): BP systolic 134–157; BP diastolic 63–75; PULSE 82–106; RESP 14–26; TEMP 36.3–37.1; O2SAT 92–99
[2022-11-06] MEDS: morphine 4 mg/mL SDV 1 mL 2 MG IVP ×2 (00:05→04:56)
[2022-11-06] MEDS: ipratropium 0.5 mg/2.5 mL Neb INHALATION (02:19)
[2022-11-06] MEDS: albuterol 2.5 mg/3 mL Neb INHALATION (02:19)
[2022-11-06] MEDS: pantoprazole 40 mg SDV IVP (02:51)
[2022-11-06] MEDS: lanolin oint 7 gm 1 APPLIC TOPICAL (02:51)
[2022-11-06 03:15] LABS: Basophils # 0.1 10^3/uL (0.0-0.1); Basophils % 0.4 %; Eosinophils # 0.2 10^3/uL (0.0-0.8); Eosinophils % 1.6 %; Hematocrit 28.6 % (37.0-47.0); Hemoglobin 8.9 g/dL (11.5-15.3); Lymphocytes # 2.4 10^3/uL (0.8-4.8); Lymphocytes % 19.9 %; Mean Corpuscular HGB Conc 31.1 g/dL (30.0-36.0); Mean Corpuscular Hemoglobin 29.8 pg (28.0-34.0); Mean Corpuscular Volume 95.7 fl (81-99); Mean Platelet Volume 9.5 fL (7.4-10.4); Monocytes % 8.5 %; Neutrophils # 8.42 10^3/uL (1.8-7.7); Neutrophils % 69.2 %; Nucleated Red Blood Cells % 0 %; Platelet Count 260 10^3/cmm (130-400); Red Blood Count 2.99 10^6/uL (4.1-5.3); White Blood Count 12.2 10^3/uL (4.0-10.0)
[2022-11-06 03:40] LABS: Alanine Aminotransferase 142 U/L (0-33); Albumin Level 3.2 g/dL (3.5-5.2); Alkaline Phosphatase 222 U/L (35-105); Anion Gap 13.7 (5-19); Aspartate Amino Transferase 110 U/L (0-32); Blood Urea Nitrogen 12 mg/dL (8-23); Calcium 8.5 mg/dL (8.5-10.5); Carbon Dioxide 27 mmol/L (22-29); Chloride 104 mmol/L (98-107); Chol HDL Ratio 2.06 mg/dL (0.0-4.40); Cholesterol 107 mg/dL (0-200); Globulin 2.8 g/dL (1.3-4.6); Glomerular Filtration Rate 82.7 mL/min (90-130); Glucose 97 mg/dL (65-115); HDL Cholesterol 52 mg/dL (60-100); LDL Cholesterol Calculated 42 mg/dL (50-129); Magnesium 1.8 mg/dL (1.7-2.3); Osmolality Calculated 292 mOsm/kg (285-295); Potassium 3.7 mmol/L (3.5-5.1); Sodium 141 mmol/L (136-145); Total Bilirubin 0.7 mg/dL (0.15-1.2); Triglycerides 64 mg/dL (0-150); VLDL Cholestrol Calculation 13 mg/dL (0-30)
[2022-11-06 03:56] LABS: Estmated Average Glucose 91; Hemoglobin A1C 4.8 % (4.0-6.0)
[2022-11-06 05:17] LABS: ABG PCO2 45.1 mmHg (35-45); ABG PH Result 7.42 (7.35-7.45); Arterial Blood Gas Hematocrit 31.7 % (37-47); Base Excess ABG 3.8 mmol/L (-2.0-2.0); Blood Gas Allen Test Pos; Blood Gas Operator Identificat JB; Blood Gas Sample Site Radial, right; Blood Gas Sample Type Arterial; Carboxyhemoglobin 1.4 %THgb (0.4-20.1); HCO3 ABG 28.9 mmol/L (22-26); HGB O2 Sat 96.1 % (95-100); Ionized Calcium Level - ABG 1.2 mmol/L (1.1-1.4); Methemoglobin 0.8 % (0.4-1.5); Oxygen Device NC; Oxygen Saturation ABG 98.2; PO2 ABG 85.2 mmHg (80.0-100.0); Potassium Level - ABG 3.4 mmol/L (3.5-5.0); Total Hemoglobin 10.3 g/dL (12-16)
[2022-11-06] MEDS: duloxetine 60 mg Capsule PO (09:03)
[2022-11-06] MEDS: lisinopril 10 mg Tablet PO (09:03)
[2022-11-06] MEDS: cetacaine Spray 5 gm Can 1 SPRAY TOPICAL (09:03)
[2022-11-06] MEDS: docusate sodium 100 mg Capsule PO ×2 (09:03→17:09)
[2022-11-06] MEDS: gabapentin 300 mg Capsule 600 MG PO (09:03)
--- NOTE | 2022-11-06 10:56 | PM.PN ---
Subjective Subjective: Patient can be transferred out of ICU I did tell her about her murmur She was never told about aortic valve stenosis and mild MR Pulmonary hypertension She probably also has sleep apnea We will request pulse ox overnight Patient is still very fatigued and lethargic She was endorsing having a nurse for a bowel movement Vitals/I&O/Wt Last Vital Signs Temp 98.8 F 11/06/22 08:00 Pulse 100 11/06/22 08:00 Resp 18 11/06/22 08:00 BP 155/73 11/06/22 08:00 Pulse Ox 93 11/06/22 08:00 O2 Del Method 11/06/22 08:00 O2 Flow Rate 2 11/06/22 08:00 FiO2 30 11/05/22 10:35 11/05/22 11/06/22 11/06/22 22:59 06:59 14:59 Intake Total 1000 / 1088.58 240 / 240 Output Total 575 / 1175 900 / 2075 500 / 500 Balance 425 / -86.42 -900 / -986.42 -260 / -260 Weight last 48 hrs Weight 101.968 kg Weight 93.44 kg Physical Exam Narrative: Patient is sitting in her chair Currently doing well on room air Systolic murmur pansystolic noted on auscultation Abdomen soft Lower extremity no edema Gilbert catheter in place with tube removed today She is complaining of sore throat Hyperemia posterior pharyngeal wall noted No signs of oral thrush S1S2 EOMI Urinary Catheter Management: Gilbert: Cath Placed During This Visit: yes, but has since been removed by the nurse Reason for Continuing Indwelling Catheter: Decision to DC Catheter Urinary Catheter Date of Insertion: 11/04/22 Urinary Catheter Time of Insertion: 20:27 Date Urinary Catheter Removed: 11/06/22 Time Urinary Catheter Discontinued: 08:29 Data 11/06/22 02:40 11/06/22 02:32 Micro: Microbiology 11/04/22 00:52 Blood Culture - Preliminary Blood NEGATIVE TO DATE 11/04/22 00:39 Blood Culture - Preliminary Blood NEGATIVE TO DATE 11/05/22 04:20 MRSA Culture - Final Nose 11/05/22 04:20 Gram Stain - Final Sputum - Endotracheal Tube Aspirate 11/05/22 04:20 Bacterial Antigens - Final Urine Kidney A&P Assessment and plan (1) Nocturnal hypoxemia: Plan Respiratory failure requiring mechanical ventilation Patient extubated successfully 2/22 Most likely her respiratory failure was related to polypharmacy Currently doing well on room air No sign of pneumonia Complaining of sore throat she can do Cetacaine intubation related posterior pharyngeal wall hyperemia no signs of oral thrush Recent laparoscopic cholecystectomy: Surgical wound not showing any drainage, no active pain Constipation: Continue bowel regimen Generalized fatigue and lethargy Check B12 level Chronic anemia: Hemoglobin stable Iron deficiency anemia: Iron supplementation Abnormal transaminases, trending down Patient might need short-term rehab technical services manager updated ICU nurse updated Transfer out of ICU Full code DVT prophylaxis on board Slowly advance diet Sore throat: Patient started spiking fever then I might do strep throat swab Mild MR, aortic stenosis and pulm hypertension explained to the patient possible undiagnosed sleep apnea, overnight pulse ox study requested, she will need outpatient sleep study Plan for today Transfer out of ICU Continue PT Continue mechanical soft diet Start her aspirin and Plavix Hold atorvastatin for now Family updated Nursing updated Attestations Medical Necessity Statement*: Out of ICU today Coding Level of Care Code 80921 Diagnoses Nocturnal hypoxemia G47.34
--- NOTE | 2022-11-06 14:02 | PC.NURSE ---
Report called to [facility], patient and belongings taken to room 257 by this nurse. Family was at bedside earlier and notified of transfer and room assignment.
[2022-11-06] MEDS: ipratropium-albuterol 3 mL Neb INHALATION ×2 (14:11→20:42)
[2022-11-06] MEDS: acetaminophen 325 mg Tablet 650 MG PO (20:35)
[2022-11-06] MEDS: budesonide 0.5 mg/2 mL Neb INHALATION (20:42)
[2022-11-06] MEDS: TRAMadol 50 mg Tablet 100 MG PO (21:19)
[2022-11-06] MEDS: ondansetron 2 mg/ML SDV 2 mL 4 MG IVP (21:28)
[2022-11-07] VITALS (7 sets, daily range): BP systolic 135–151; BP diastolic 72–80; PULSE 69–87; RESP 16–20; TEMP 36.6–37.5; O2SAT 93–96
[2022-11-07] MEDS: ipratropium-albuterol 3 mL Neb INHALATION (03:20)
[2022-11-07] MEDS: pantoprazole 40 mg SDV IVP (03:59)
[2022-11-07 05:34] LABS: Basophils # 0.1 10^3/uL (0.0-0.1); Basophils % 0.5 %; Eosinophils # 0.3 10^3/uL (0.0-0.8); Eosinophils % 3.2 %; Hematocrit 28.1 % (37.0-47.0); Hemoglobin 8.8 g/dL (11.5-15.3); Lymphocytes # 1.9 10^3/uL (0.8-4.8); Lymphocytes % 18.3 %; Mean Corpuscular HGB Conc 31.3 g/dL (30.0-36.0); Mean Corpuscular Hemoglobin 28.9 pg (28.0-34.0); Mean Corpuscular Volume 92.4 fl (81-99); Mean Platelet Volume 9.6 fL (7.4-10.4); Monocytes # 0.8 10^3/uL (0.2-0.9); Monocytes % 7.8 %; Neutrophils # 7.25 10^3/uL (1.8-7.7); Neutrophils % 69.9 %; Nucleated Red Blood Cells % 0 %; Platelet Count 301 10^3/cmm (130-400); Red Blood Count 3.04 10^6/uL (4.1-5.3); Red Cell Distribution Width 13.4 % (12.1-15.1); White Blood Count 10.4 10^3/uL (4.0-10.0)
[2022-11-07 06:04] LABS: Alanine Aminotransferase 102 U/L (0-33); Albumin Level 3.2 g/dL (3.5-5.2); Alkaline Phosphatase 210 U/L (35-105); Anion Gap 11.3 (5-19); Aspartate Amino Transferase 62 U/L (0-32); Blood Urea Nitrogen 10 mg/dL (8-23); Calcium 8.6 mg/dL (8.5-10.5); Carbon Dioxide 29 mmol/L (22-29); Chloride 105 mmol/L (98-107); Globulin 2.8 g/dL (1.3-4.6); Glomerular Filtration Rate 82.7 mL/min (90-130); Glucose 99 mg/dL (65-115); Osmolality Calculated 293 mOsm/kg (285-295); Potassium 3.3 mmol/L (3.5-5.1); Sodium 142 mmol/L (136-145); Total Bilirubin 0.8 mg/dL (0.15-1.2)
--- NOTE | 2022-11-07 06:57 | P.DS_ITS ---
Discharge Providers Date of Admission: 11/05/22 01:38 Date of Discharge: November 07, 2022 Attending Provider at Admission: Javon Vaughn MD Attending Provider at Discharge: Aneesh Styles MD Primary Care Provider: Agnes Alfaro MD Diagnoses at Discharge Discharge Diagnosis (1) Nocturnal hypoxemia: Status: Acute Reason for Visit Reason for Visit: stroke like symptoms Hospital Course Hospital Course 72-year-old female who recently had a laparoscopic cholecystectomy at [facility], patient went home took her medications and became obtunded, EMS was called, Daniel airway was placed by the EMS, she was intubated in the ER for airway protection as soon as she arrived, she was admitted to the ICU, trauma scan negative, stroke work-up negative, no signs of acute coronary syndrome, we were able to successfully extubate her in next 16 hours to nasal cannula, patient did very well with physical therapy, she was complaining of some sore throat which improved gradually, she remained hemodynamically stable, cultures remain negative, no sign of consolidation, her laparoscopic wounds look healthy, no signs of infection, general surgery was consulted at the time of admission, surgical wound without any acute pathological findings, patient was given empiric antibiotics, she did very well with physical therapy however she was complaining of fatigue lethargy. 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 There is no acute decompensation for now. At the time of discharge she will get extensive counseling to avoid mixing up her opioids with her anxiolytics and sedatives. Home health services arranged MRSA nares negative, cultures negative, She is getting sleep study referral at time of discharge She can continue her dual antiplatelet therapy I would avoid naproxen to avoid peptic ulcer disease/gastric ulcers I will decrease the dose of gabapentin to 300 mg twice daily and hold Cymbalta for now and discontinue opioids She can take tramadol on as-needed basis I will hold her statins because of abnormal liver enzymes, they are trending down, Physical Exam Narrative: Pleasant cooperative Currently on 2 L Awake and alert Laparoscopic scars looking healthy S1, S2 Nonfocal neuro exam GCS 15 Urinary Catheter Management: Gilbert: Cath Placed During This Visit: yes, but has since been removed by the nurse Reason for Continuing Indwelling Catheter: Decision to DC Catheter Urinary Catheter Date of Insertion: 11/04/22 Urinary Catheter Time of Insertion: 20:27 Date Urinary Catheter Removed: 11/06/22 Time Urinary Catheter Discontinued: 08:29 Discharge Data Studies Completed and Pending Completed Studies During Hospitalization Category Date Time Status CT angio chest w abd pel w con Stat Cat Scan 11/04/22 20:[address] angio headneck* [id number] Stat Cat Scan 11/04/22 19:[address] head thrombolytic [id number] Stat Cat Scan 11/04/22 19:41 Completed XR chest 1V portable [id number] Stat Exams 11/04/22 19:40 Completed MR MRCP [id number] Stat MRI 11/04/22 22:31 Completed CV. echo complete* [id number] Routine Ultrasound 11/05/22 00:54 Completed Pending at discharge Category Date Time Status Blood Culture Stat Lab 11/04/22 00:52 Results Sputum Culture and Gram Stain Stat Lab 11/05/22 04:20 Results Radiology Impressions Chest X-Ray 11/04/22 19:40 IMPRESSION: 1. ET tube in satisfactory position. 2. Decreased lung volumes with minor bibasilar atelectatic changes. Head/Neck CTA 11/04/22 19:40 IMPRESSION: 1. No large artery occlusion or stenosis. IMPRESSION: 1. Calcified plaque in the proximal left internal carotid artery with 20% stenosis. COMMENTS: Consistent with the [employer]'s Incidental Findings Committee white paper (J Am Kelvin Radiol 2015): In patients aged 35 years and older with an incidental thyroid nodule equal to or greater than 1.[address], MRI or extrathyroidal US, further evaluation with dedicated thyroid US is recommended for patients with normal life expectancy and without comorbidities. For smaller nodules without suspicious features, no further evaluation or follow up is recommended. REFERENCES: NASCET CRITERIA. The degree of stenosis in the cervical segment of the internal carotid artery is based on NASCET criteria. Normal is no stenosis. Mild is less than 50% stenosis. Moderate is 50-69% stenosis. Severe is 70% to 99% stenosis. Total occlusion is no detectable patent lumen. Head CT 11/04/22 19:41 IMPRESSION: Negative CT examination of the head. No acute intracranial abnormalities. ASSESSMENT: ASPECTS (Katie Stroke Program Early CT Score) is 10. Chest/Abdomen/Pelvis CT 11/04/22 20:22 IMPRESSION: 1. No evidence for pulmonary embolus. 2. Shallow inspiration with atelectasis and mild air trapping. 3. Filling defects in the distal trachea and proximal right mainstem bronchus are most likely mucus. IMPRESSION: 1. Post cholecystectomy changes as described. 2. Hematoma in the upper right abdominus rectus muscle measuring up to 4.0 cm in thickness. This is most likely related to the recent surgery. 3. Small amount of blood along the anterior liver. 4. Intrahepatic and extrahepatic ductal dilatation. No visible intraductal filling defect. Follow-up with MRCP is recommended. COMMENTS: Consistent with the [place] [employer]'s Incidental Findings Committee white paper (J Am Kelvin Radiol 2018): Any incidental renal lesion less than 1 cm or classified as too small to characterize, or any incidental cystic renal lesion characterized as simple-appearing, is likely benign. No follow-up imaging is recommended for these lesions per consensus recommendations based on imaging criteria. Cholangiopancreatography MRI 11/04/22 22:31 IMPRESSION: 1. Stable post cholecystectomy changes with dilated common bile duct to 1.1 cm with intrahepatic biliary ductal dilatation also present. No filling defect is seen to indicate a stone. 2. Stable minimal blood anterior to the liver which is likely postoperative. 3. Stable right rectus sheath hematoma. Laboratory Results WBC 10.4 10^3/uL (4.0-10.0) H 11/07/22 04:47 RBC 3.04 10^6/uL (4.1-5.3) L 11/07/22 04:47 Hgb 8.8 g/dL (11.5-15.3) L 11/07/22 04:47 Hct 28.1 % (37.0-47.0) L 11/07/22 04:47 MCV 92.4 fl (81-99) 11/07/22 04:47 MCH 28.9 pg (28.0-34.0) 11/07/22 04:47 MCHC 31.3 g/dL (30.0-36.0) 11/07/22 04:47 RDW 13.4 % (12.1-15.1) 11/07/22 04:47 Plt Count 301 10^3/cmm (130-400) 11/07/22 04:47 MPV 9.6 fL (7.4-10.4) 11/07/22 04:47 Neut % (Auto) 69.9 % 11/07/22 04:47 Lymph % (Auto) 18.3 % 11/07/22 04:47 [place] % (Auto) 7.8 % 11/07/22 04:47 Eos % (Auto) 3.2 % 11/07/22 04:47 Baso % (Auto) 0.5 % 11/07/22 04:47 Neut # (Auto) 7.25 10^3/uL (1.8-7.7) 11/07/22 04:47 Lymph # (Auto) 1.9 10^3/uL (0.8-4.8) 11/07/22 04:47 [place] # (Auto) 0.8 10^3/uL (0.2-0.9) 11/07/22 04:47 Eos # (Auto) 0.3 10^3/uL (0.0-0.8) 11/07/22 04:47 Baso # (Auto) 0.1 10^3/uL (0.0-0.1) 11/07/22 04:47 Nucleated RBC % (auto) 0 % 11/07/22 04:47 Nucleated RBCs # 0.0 /100WBC 11/07/22 04:47 PT 15.70 SECONDS (12.1-14.9) H 11/04/22 19:14 INR 1.21 (0.8-1.2) H 11/04/22 19:14 APTT 28.9 SECONDS (23.9-36.7) 11/04/22 19:14 Specimen Type Arterial 11/06/22 05:04 Sample Site Radial, right 11/06/22 05:04 ABG pH 7.42 (7.35-7.45) 11/06/22 05:04 ABG pCO2 45.1 mmHg (35-45) H 11/06/22 05:04 ABG pO2 85.2 mmHg (80.0-100.0) 11/06/22 05:04 ABG HCO3 28.9 mmol/L (22-26) H 11/06/22 05:04 ABG O2 Saturation 98.2 11/06/22 05:04 ABG Base Excess 3.8 mmol/L (-2.0-2.0) H 11/06/22 05:04 Prabhjot Test Pos 11/06/22 05:04 A-a O2 Gradient 1.0 mmHg (5-10) L 11/06/22 05:04 Hematocrit 31.7 % (37-47) L 11/06/22 05:04 Hgb O2 Saturation 96.1 % (95-100) 11/06/22 05:04 Carboxyhemoglobin 1.4 %THgb (0.4-20.1) 11/06/22 05:04 Methemoglobin 0.8 % (0.4-1.5) 11/06/22 05:04 Total Hemoglobin 10.3 g/dL (12-16) L 11/06/22 05:04 Sodium 142.0 mmol/L (131-143) 11/06/22 05:04 Potassium 3.4 mmol/L (3.5-5.0) L 11/06/22 05:04 Glucose 99.0 mg/dL (70-115) 11/06/22 05:04 Ionized Calcium 1.2 mmol/L (1.1-1.4) 11/06/22 05:04 O2 Delivery Device Nc 11/06/22 05:04 O2 Liters/Min 2.0 % 11/06/22 05:04 FiO2 50.0 % 11/05/22 01:55 PEEP 5.0 cmH20 11/05/22 01:55 Supervisor Frame Sample And Pattern ID Isiah 11/06/22 05:04 Sodium 142 mmol/L (136-145) 11/07/22 04:47 Potassium 3.3 mmol/L (3.5-5.1) L 11/07/22 04:47 Chloride 105 mmol/L (98-107) 11/07/22 04:47 Carbon Dioxide 29 mmol/L (22-29) 11/07/22 04:47 Anion Gap 11.3 (5-19) 11/07/22 04:47 BUN 10 mg/dL (8-23) 11/07/22 04:47 Creatinine 0.7 mg/dL (0.5-0.9) 11/07/22 04:47 GFR Calculation 82.7 mL/min (90-130) L 11/07/22 04:47 Glucose 99 mg/dL (65-115) 11/07/22 04:47 POC Glucose 143 mg/dL (70-110) H 11/04/22 19:46 Estimat Average Glucose 91 11/06/22 02:32 Hemoglobin A1c 4.8 % (4.0-6.0) 11/06/22 02:32 Calculated Osmolality 293 mOsm/kg (285-295) 11/07/22 04:47 Lactate 2.1 mmol/L (0.5-2.2) 11/04/22 19:40 Calcium 8.6 mg/dL (8.5-10.5) 11/07/22 04:47 Magnesium 1.8 mg/dL (1.7-2.3) 11/06/22 02:32 Iron 27 ug/dL (37-145) L 11/05/22 04:37 TIBC 229 mcg/dl 11/05/22 04:37 % Saturation 11.7 % (20-50) L 11/05/22 04:37 Unsat Iron Binding 202 ug/dL (112-347) 11/05/22 04:37 Total Bilirubin 0.8 mg/dL (0.15-1.2) 11/07/22 04:47 GGT 438 U/L (5-36) H 11/05/22 04:37 AST 62 U/L (0-32) H 11/07/22 04:47 ALT 102 U/L (0-33) H 11/07/22 04:47 Alkaline Phosphatase 210 U/L (35-105) H 11/07/22 04:47 Ammonia 34 umol/L (11-51) 11/04/22 20:22 Lactate Dehydrogenase 294 U/L (135-214) H 11/05/22 04:37 Creatine Kinase 196 U/L (26-192) H 11/05/22 04:37 Troponin T Baseline 16 ng/L (0-10) H 11/04/22 19:40 Troponin T 120 Minute 13.07 ng/L (0-10) H 11/04/22 20:50 Delta Troponin T -2.93 ABS# (0-10) L 11/04/22 20:50 Troponin T Hi Sens 6Hr 14.22 ng/L (0-10) H 11/05/22 04:37 Troponin T Hi Sens 6Hr Delta -1.78 ng/L (0-12) L 11/05/22 04:37 Total Protein 6.0 g/dL (6.6-8.7) L 11/07/22 04:47 Albumin 3.2 g/dL (3.5-5.2) L 11/07/22 04:47 Globulin 2.8 g/dL (1.3-4.6) 11/07/22 04:47 Triglycerides 64 mg/dL (0-150) 11/06/22 02:32 Cholesterol 107 mg/dL (0-200) 11/06/22 02:32 LDL Cholesterol, Calc 42 mg/dL (50-129) L 11/06/22 02:32 Total VLDL Cholesterol 13 mg/dL (0-30) 11/06/22 02:32 HDL Cholesterol 52 mg/dL (60-100) L 11/06/22 02:32 Cholesterol/HDL Ratio 2.06 mg/dL (0.0-4.40) 11/06/22 02:32 Lipase 186 U/L (13-60) H 11/05/22 04:37 Vitamin B12 1042 pg/mL (232-1245) 11/05/22 04:37 Folate > 20.0 ng/mL (4.8-37.3) 11/05/22 04:37 Procalcitonin 0.44 ng/mL (0-0.5) 11/05/22 04:37 TSH 2.00 uIU/mL (0.27-4.20) 11/05/22 04:37 Urine Color Yellow (Yellow) 11/04/22 20:40 Urine Appearance Clear (CLEAR) 11/04/22 20:40 Urine pH 5 (5-7) 11/04/22 20:40 Ur Specific [place] 1.015 (1.005-1.030) 11/04/22 20:40 Urine Protein Neg (Negative) 11/04/22 20:40 Urine Glucose (UA) Norm (Normal) 11/04/22 20:40 Urine Ketones Negative (Negative) 11/04/22 20:40 Urine Blood Neg (Negative) 11/04/22 20:40 Urine Nitrate Negative (Negative) 11/04/22 20:40 Urine Bilirubin Neg (Negative) 11/04/22 20:40 Urine Urobilinogen Norm mg/dL (Negative) 11/04/22 20:40 Ur Leukocyte Esterase Negative (Negative) 11/04/22 20:40 Nasal Influ A H1 2009 PCR Not detected (NOT DETECT) 11/05/22 04:41 Salicylates < 0.3 mg/dL (3-10) L 11/05/22 04:37 Urine Opiates Screen Positive ng/mL (Negative) H 11/04/22 20:40 Acetaminophen < 5.0 ug/mL (10-30) L 11/05/22 04:37 Ur Barbiturates Screen Negative ng/mL (Negative) 11/04/22 20:40 Ur Phencyclidine Scrn Negative ng/mL (Negative) 11/04/22 20:40 Ur Amphetamines Screen Negative ng/mL (Negative) 11/04/22 20:40 U Benzodiazepines Scrn Negative ng/mL (Negative) 11/04/22 20:40 Urine Cocaine Screen Negative ng/mL (Negative) 11/04/22 20:40 U Marijuana (THC) Screen Negative ng/mL (Negative) 11/04/22 20:40 Ethyl Alcohol < 10 mg/dL (0-10) 11/05/22 04:37 Adenovirus (PCR) Not detected (NOT DETECT) 11/05/22 04:41 C. pneumoniae DNA (PCR) Not detected (NOT DETECT) 11/05/22 04:41 Coronavirus 229E (PCR) Not detected (NOT DETECT) 11/05/22 04:41 Human Metapneumovir PCR Not detected (NOT DETECT) 11/05/22 04:41 Influenza A (H1) PCR Not detected (NOT DETECT) 11/05/22 04:41 Influenza A (H3) PCR Not detected (NOT DETECT) 11/05/22 04:41 Influenza Type A (PCR) Not detected (NOT DETECT) 11/05/22 04:41 Influenza Type B (PCR) Not detected (NOT DETECT) 11/05/22 04:41 M. pneumoniae (PCR) Not detected (NOT DETECT) 11/05/22 04:41 Parainfluenza 1 (PCR) Not detected (NOT DETECT) 11/05/22 04:41 Parainfluenza 2 (PCR) Not detected (NOT DETECT) 11/05/22 04:41 Parainfluenza 3 (PCR) Not detected (NOT DETECT) 11/05/22 04:41 Parainfluenza 4 (PCR) Not detected (NOT DETECT) 11/05/22 04:41 RSV Type A (PCR) Not detected (NOT DETECT) 11/05/22 04:41 RSV Type B (PCR) Not detected (NOT DETECT) 11/05/22 04:41 Entero/Rhino (PCR) Not detected (NOT DETECT) 11/05/22 04:41 SARS-CoV-2 (PCR) Not detected (NOT DETECT) 11/05/22 04:41 Vitals Last Vital Signs Temp 98.4 F 11/07/22 04:00 Pulse 80 11/07/22 04:00 Resp 20 H 11/07/22 04:00 BP 147/75 11/07/22 04:00 Pulse Ox 94 11/07/22 04:00 O2 Del Method 11/07/22 03:20 O2 Flow Rate 2 11/07/22 03:20 FiO2 30 11/05/22 10:35 Discharge Plan Discharge Patient Disposition: Home Condition: Stable Prescriptions: Continued cranberry 400 mg capsule 400 mg PO DAILY@08 cholecalciferol (vitamin D3) [Vitamin D3] 50 mcg (2,000 unit) capsule 2,000 unit PO DAILY@08 buspirone 10 mg tablet 10 mg PO BID@08,21 potassium chloride 10 mEq capsule, extended release 10 meq PO BID@08,21 furosemide [Lasix] 20 mg tablet 20 mg PO DAILY@08 clopidogrel 75 mg tablet 75 mg PO DAILY lisinopril 10 mg tablet 20 mg PO DAILY mupirocin 2 % ointment 1 applic topical TID PRN (Reason: unknown) polyethylene glycol 3350 [Miralax] 17 gram/dose powder 17 g PO DAILY Aspir-81 81 mg Tablet,Delayed Release (Dr/Ec) 81 mg PO DAILY tizanidine 4 mg tablet 8 mg PO BID PRN (Reason: Muscle Spasm) tramadol 50 mg tablet 100 mg PO TID PRN (Reason: Pain) Qty: 30 0RF Changed gabapentin 600 mg tablet 300 mg PO BID Qty: 30 0RF Held atorvastatin 80 mg tablet 80 mg PO DAILY Hold Instructions: Resume on 11/14/22. duloxetine [Cymbalta] 60 mg capsule,delayed release(DR/EC) 120 mg PO DAILY@08 Hold Instructions: Resume on 11/14/22. Discontinued naproxen 500 mg tablet 500 mg PO BID PRN (Reason: Pain) hydrocodone-acetaminophen 5-325 mg tablet 1 - 2 tab PO Q6H PRN (Reason: Pain) Discharge Orders: Discharge Order (Routine); Ordered 11/07/22 Ordered By: Aneesh Styles Other Ambulatory Orders: Sleep Study/Titration (Routine) Timeframe: 3 Days Facility: [facility] - Location: [facility] Ordered By: Aneesh Styles Referrals: Agnes Alfaro MD [Primary Care Provider] - 1 week Patient Instructions: Opioid Safety Discharge Attestations Time Spent in Discharge Care*: less than 30 min Quality Metrics Clinical Quality Measures [ No reported AMI, CVA or VTE this stay] Coding Level of Care Code Acute Code for Chg Fwd Diagnoses Nocturnal hypoxemia G47.34
[2022-11-07] MEDS: gabapentin 300 mg Capsule 600 MG PO (08:09)
[2022-11-07] MEDS: lisinopril 10 mg Tablet PO (08:09)
[2022-11-07] MEDS: duloxetine 60 mg Capsule PO (08:10)
[2022-11-07] MEDS: potassium chloride ER 10 mEq Tablet PO (08:11)
[2022-11-07] MEDS: aspirin 81 mg EC Tablet PO (08:11)
[2022-11-07] MEDS: docusate sodium 100 mg Capsule PO (08:11)
[2022-11-07] MEDS: FUROsemide 20 mg Tablet PO (08:12)
[2022-11-07] MEDS: clopidogrel 75 mg Tablet PO (08:12)
[2022-11-07] MEDS: cetacaine Spray 5 gm Can 1 SPRAY TOPICAL (08:13)
== END 2022-11-07 14:17 | disposition home health service (06) | DRG 208 ==
LOC: ER 11-05 01:25 → ICU 11-05 01:39 → MEDSURG 11-06 14:43
PROVIDERS: Admitting Provider Student in an Organized Health Care Education/Training Program; Emergency Provider Emergency Medicine; PCP Family Medicine; Visit Provider Internal Medicine
DX: J96.00 Acute respiratory failure, unspecified whether with hypoxia or hypercapnia (principal); G92.8 Other toxic encephalopathy; I50.32 Chronic diastolic (congestive) heart failure; J70.1 Chronic and other pulmonary manifestations due to radiation; T50.915A Adverse effect of multiple unspecified drugs, medicaments and biological substances, initial encounter; I27.20 Pulmonary hypertension, unspecified; Z79.02 Long term (current) use of antithrombotics/antiplatelets; Z79.82 Long term (current) use of aspirin; Z79.891 Long term (current) use of opiate analgesic; I11.0 Hypertensive heart disease with heart failure; Z85.3 Personal history of malignant neoplasm of breast; Z92.21 Personal history of antineoplastic chemotherapy; Z92.3 Personal history of irradiation; Z90.13 Acquired absence of bilateral breasts and nipples; Z86.73 Personal history of transient ischemic attack (TIA), and cerebral infarction without residual deficits; F32.A Depression, unspecified; M79.7 Fibromyalgia; G47.30 Sleep apnea, unspecified; D50.9 Iron deficiency anemia, unspecified; K59.00 Constipation, unspecified; R01.1 Cardiac murmur, unspecified; Z98.890 Other specified postprocedural states; I65.23 Occlusion and stenosis of bilateral carotid arteries; W88.1XXS Exposure to radioactive isotopes, sequela; G62.0 Drug-induced polyneuropathy; T45.1X5S Adverse effect of antineoplastic and immunosuppressive drugs, sequela
CPT/HCPCS: 12345; 31500; 36415; 36416; 36600; 51702; 70450; 70496; 70498; 71045; 71275; 74177; 74181; 80051; 80053; 80061; 80306; 80307; 81003; 82140; 82330; 82550; 82607; 82746; 82803; 82805; 82962; 82977; 83036; 83540; 83550; 83605; 83615; 83690; 83735; 84145; 84443; 84484; 85025; 85610; 85730; 86403; 87040; 87070; 87205; 87449; 87486; 87581; 87633; 87641; 93005; 93306; 94002; 94003; 94640; 94799; 96365; 96366; 96367; 96374; 97110; 97116; 97161; 99291; 99292; A4570; A9270; C9113; J2270; J2405; J2543; J2704; J3010; J3370; J3490; J7030; J7050; J7613; J7626; J7644; Q9967

== ENCOUNTER 2022-12-16 20:00 | Outpatient (CLI) | payer MEDICARE, OTHER, SELFPAY | END 2022-12-16 20:01 | disposition home or self-care (01) | PROVIDERS: PCP Family Medicine; Visit Provider Internal Medicine | DX: G47.34 Idiopathic sleep related nonobstructive alveolar hypoventilation (principal) | CPT/HCPCS: 95810 ==

== ENCOUNTER 2023-11-12 11:14 | Outpatient (CLI) | payer MEDICARE, OTHER, SELFPAY ==
--- NOTE | 2023-11-12 11:16 | MM_ITS ---
WS: [id number] BILATERAL 3D TOMOSYNTHESIS DIGITAL DIAGNOSTIC MAMMOGRAPHY WITH CAD CLINICAL INFORMATION: ANNUAL - HX BR CA HISTORY: RIGHT lumpectomy COMPARISON: 2022 TECHNIQUE: Bilateral CC, MLO, and ML views. FINDINGS: Scattered fibroglandular densities bilaterally. Postoperative changes RIGHT breast with lumpectomy. D ystrophic calcifications. Parenchymal scarring is similar in appearance. Volume loss RIGHT breast. Va scular calcifications. LEFT breast is unchanged. A few tiny incidental punctate calcifications. No suspicious focal mass, asymmetry, calcifications, or architectural distortion. No evidence of yissel gnancy. IMPRESSION: MM/[place] [id number] BI-RADS: 2-Benign FOLLOW UP: 1 Year Follow-up Recommend return to annual diagnostic mammography.
== END 2023-11-12 11:15 | disposition home or self-care (01) ==
LOC: RAD 11:14
PROVIDERS: PCP Family Medicine; Visit Provider Family Medicine
DX: Z12.31 Encounter for screening mammogram for malignant neoplasm of breast (principal); Z85.3 Personal history of malignant neoplasm of breast
CPT/HCPCS: 77062; G0279

== ENCOUNTER 2023-12-24 15:01 | Outpatient (CLI) | payer MEDICARE, SELFPAY ==
--- NOTE | 2023-12-24 15:04 | XR_ITS ---
WS: [id number] DEXA (DUAL ENERGY X-RAY ABSORPTIOMETRY) Bone mineral density was performed using a [employer] machine. HISTORY: ASYMPTOMATIC MENOPAUSAL STATE COMPARISON: 06/10/2019 Lumbar spine BMD (L1-L4): 1.248 g/cm2 T score: 0.6 Z score: 1.6 Total hip BMD: Left: 0.944 g/cm2. T score: -0.5 Z score: 0.6 Right: 0.987 g/cm2. T score: -0.2 Z score: 0.9 10 year probability of a major osteoporotic fracture is 10.0%. Compared to the prior study from 06/10/2019. Lumbar spine bone mineral density has increased by 11.8%. Bilateral hips bone mineral density has increased by 0.9%. IMPRESSION: NORMAL BONE MINERAL DENSITY based upon the WHO classification for females. Increase in bone mineral density of the lumbar spine is probably falsely elevated due to increasing s clerosis. No significant change of bone mineral density involving the hips.
== END 2023-12-24 15:02 | disposition home or self-care (01) ==
LOC: RAD 15:02
PROVIDERS: PCP Family Medicine; Visit Provider Family Medicine
DX: Z78.0 Asymptomatic menopausal state (principal)
CPT/HCPCS: 77080

== ENCOUNTER 2024-11-21 13:00 | Outpatient (CLI) | payer MEDICARE, OTHER, SELFPAY ==
--- NOTE | 2024-11-21 13:13 | MM_ITS ---
WS: [id number] BILATERAL 3D TOMOSYNTHESIS DIGITAL DIAGNOSTIC MAMMOGRAPHY WITH CAD CLINICAL INFORMATION: OTHER SCREENING FOR MALIGNANT NEOPLASM OF BREAST COMPARISON: 2023 TECHNIQUE: Bilateral CC, MLO, and ML views. FINDINGS: Scattered fibroglandular densities bilaterally. Postoperative changes lumpectomy RIGHT breast with parenchymal scarring and dystrophic calcifications. Associated fat necrosis. Treatment-related changes RIGHT breast. Vascular calcification. No suspicious focal mass, asymmetry, calcifications, or architectural distortion. No evidence of malignancy. MM/MM diag tomosynthesis [id number] IMPRESSION: DENSITY: There are scattered areas of fibroglandular density. BI-RADS: 2 - Benign. FOLLOW UP: 1 Year Follow-up Recommend return to annual diagnostic mammography.
== END 2024-11-21 13:01 | disposition home or self-care (01) ==
PROVIDERS: PCP Family Medicine; Visit Provider Family Medicine
DX: Z12.39 Encounter for other screening for malignant neoplasm of breast (principal); R92.323 Mammographic fibroglandular density, bilateral breasts; Z98.890 Other specified postprocedural states; R92.1 Mammographic calcification found on diagnostic imaging of breast; N64.1 Fat necrosis of breast
CPT/HCPCS: 77062; G0279

== ENCOUNTER → 2024-12-16 08:19 | Outpatient (BNVA) | payer MEDICARE, OTHER, SELFPAY | PROVIDERS: PCP Family Medicine; Visit Provider Orthopaedic Surgery | DX: Z01.818 Encounter for other preprocedural examination (principal); M65.341 Trigger finger, right ring finger | CPT/HCPCS: 36415; 73130; 80053; 81001; 85025; 99204 ==

== ENCOUNTER 2024-12-28 09:37 | Outpatient (CLI) | payer MEDICARE, OTHER, SELFPAY ==
--- NOTE | 2024-12-28 09:40 | US_ITS ---
WS: [id number] RIGHT UPPER QUADRANT ULTRASOUND HISTORY: ABNORMAL LEVELS OF SERUM ENZYMES COMPARISON: 04/09/2022 Liver: 12.7 cm in length. Normal size liver and echogenicity. No bile duct dilatation or mass. Portal Vein: Normal hepatopetal flow with monophasic waveform. Gallbladder: Prior cholecystectomy. CBD: 0.4 cm Pancreas: Limited visualization. Right kidney: 9.5 cm in length. Normal size and echogenicity. No hydronephrosis or mass. Aorta and IVC: Limited. No ascites. US/US abdomen limited [id number] IMPRESSION: 1. Prior cholecystectomy. 2. Normal size liver. No intrahepatic duct dilatation.
== END 2024-12-28 09:38 | disposition home or self-care (01) ==
PROVIDERS: PCP Family Medicine; Visit Provider Family Medicine
DX: R74.8 Abnormal levels of other serum enzymes (principal); Z90.49 Acquired absence of other specified parts of digestive tract
CPT/HCPCS: 76705

== ENCOUNTER → 2025-01-06 11:12 | Outpatient (BNVA) | payer MEDICARE, OTHER, SELFPAY | PROVIDERS: PCP Family Medicine; Visit Provider Family Medicine | DX: Z01.818 Encounter for other preprocedural examination (principal) | CPT/HCPCS: 93005 ==

== ENCOUNTER → 2025-01-11 05:46 | Day surgery (SDC) | payer MEDICARE, OTHER, SELFPAY ==
[2025-01-11] VITALS (7 sets, daily range): BP systolic 127–158; BP diastolic 65–79; PULSE 50–74; RESP 16–18; TEMP 36.1–36.3; O2SAT 94–98; BMI 30.1
[2025-01-11] MEDS: sodium chloride 0.9% 1,000 ML 30 ML IV (06:13)
--- NOTE | 2025-01-11 06:50 | ANES.PREANE2 ---
Pre-Anesthetic Assessment Height/Weight: Height 1.65 m Weight 82.1 kg Temp Pulse Resp BP Pulse Ox O2 Del Method 97.4 F L 67 18 138/66 95 Room Air 01/11/25 06:05 01/11/25 06:05 01/11/25 06:05 01/11/25 06:05 01/11/25 06:05 01/11/25 06:05 Operation Date: 01/11/25 07:00 Proposed Procedures p Right Ring Finger Trigger Finger Release(Right) - Terry Nelson MD Familial anesthetic complications: None Was Beta Josselyn taken within 24 hours: N/A Was Clonidine taken within 24 hours: N/A Last intake: Intake Last Liquid Date 01/10/25 Last Liquid Time 20:00 Last Solid Date 01/10/25 Last Solid Time 20:00 Social No alcohol and No tobacco Exam alert, oriented x 3, clear to auscultation bilaterally and regular rate & rhythm Airway Mallampati: Class II Dentition: full CV/HEM Hypertension EF 65% GI Gastroesophageal Reflux Disease Metabolic Hyperlipidemia Neuropsych TIA Anesthetic Plan ASA status: 3 Anesthesia: General Risk of > 500 ml blood loss (7ml/kg in children): No Medications/Allergies Home Medications ?Medication ?Instructions ?Recorded ?Confirmed ?Last Taken ?Type buspirone 10 mg tablet 10 mg PO BID@12/13/19 01/10/25 01/10/25 History cholecalciferol (vitamin D3) 50 2,000 unit PO DAILY@12/13/19 01/10/25 12/14/24 History mcg (2,000 unit) capsule (Vitamin D3) cranberry fruit 400 mg capsule 400 mg PO DAILY@12/13/19 01/10/25 12/14/24 History furosemide 20 mg tablet (Lasix) 20 mg PO DAILY@03/20/20 01/10/25 01/10/25 History potassium chloride 10 mEq 10 meq PO BID@03/20/20 01/10/25 01/10/25 History capsule,extended release duloxetine 60 mg capsule,delayed 120 mg PO DAILY@11/22/20 01/10/25 01/10/25 History release (Cymbalta) clopidogrel 75 mg tablet 75 mg PO DAILY 10/15/21 01/10/25 12/28/24 History lisinopril 10 mg tablet 20 mg PO DAILY 10/15/21 01/10/25 01/10/25 History mupirocin 2 % topical ointment 1 applic topical TID PRN unknown 10/15/21 01/10/25 Unknown History polyethylene glycol 3350 17 17 g PO DAILY 10/15/21 01/10/25 01/10/25 History gram/dose oral powder (Miralax) aspirin 81 mg tablet,delayed 81 mg PO DAILY 11/05/22 01/10/25 12/28/24 History release tizanidine 4 mg tablet 8 mg PO BID PRN Muscle Spasm 11/05/22 01/10/25 01/10/25 History gabapentin 600 mg tablet 300 mg (1/2 x 600 mg) PO BID #30 11/07/22 01/10/25 01/10/25 Rx tabs tramadol 50 mg tablet 100 mg (2 x 50 mg) PO TID PRN Pain 11/07/22 01/10/25 01/10/25 Rx #30 tabs evolocumab 140 mg/mL subcutaneous 140 mg SUBCUT 12/16/24 01/06/25 12/29/24 History syringe (Repatha Syringe) pantoprazole 20 mg tablet,delayed 20 mg PO DAILY 12/16/24 01/10/25 01/10/25 History release Allergies Allergy/AdvReac Type Severity Reaction Status Date / Time bupropion (From Wellbutrin) AdvReac muscle Verified 01/06/25 11:43 cramps Current Medications Generic Name Dose Route Start Last Admin Trade Name Freq PRN Reason Stop Dose Admin Sodium Chloride 1,000 mls @ 30 mls/hr 01/11/25 06:00 01/11/25 06:13 Sodium Chloride 0.9% IV 01/12/25 05:59 30 mls/hr .Q24H ANICETO Administration PFSH Anesthesia Medical History Nocturnal hypoxemia Polypharmacy Rectus sheath hematoma Transaminitis Encephalopathy Respiratory failure Breast cancer, right Bilateral carotid artery stenosis Fibromyalgia Hypertension TIA (transient ischemic attack) Peripheral neuropathy Depression Radiation fibrosis Peripheral neuropathy, toxic Surgical History Post-operative state S/P cholecystectomy Status post colonoscopy (11/13/21) Diverticulosis Status post right breast lumpectomy with re-excision with SLNB History of colonoscopy 2004 hx of polyps and diverticulitis History of tonsillectomy Family History Other Cancer Diabetes Hypertension Stroke Denies family history of CAD (coronary artery disease) Social History Smoking and tobacco/nicotine status: never used tobacco/nicotine Alcohol intake: current Alcohol intake frequency: holidays/special occasions only Substance/Drug Use: never Housing: [place] Data Anesthesia Cardiac Studies: Echocardiogram 11/05/22 Echocardiogram Ultrasound 11/22/20
--- NOTE | 2025-01-11 07:08 | W.PM.OPSUD ---
Surgery/Procedure H&P Update DATE OF PROCEDURE: January 11, 2025 DATE H&P PERFORMED: 12/16/24 H&P UPDATE INFORMATION: I have reviewed H&P completed within last 30 days, I have examined patient prior to procedure and No changes to prior documentation PREOP DIAGNOSIS: Right ring finger trigger finger PRIMARY INDICATION FOR PROCEDURE: Pain and locking right ring finger PLANNED PROCEDURE: Operation Date: 01/11/25 07:00 Proposed Procedures p Right Ring Finger Trigger Finger Release(Right) - Terry Nelson MD
[2025-01-11] MEDS: ceFAZolin 2,000 mg SDV 2000 MG IVP (07:09)
[2025-01-11] MEDS: BUPivacaine 0.5% INJ 10 mL INJECTION (07:26)
--- NOTE | 2025-01-11 07:43 | P.OP_ITS ---
Operative Report Date of procedure: January 11, 2025 Surgeon: Terry Nelson MD Procedure: Preoperative diagnosis: Trigger finger right ring finger Postoperative diagnosis: Same Procedure: Right ring finger trigger release Surgeon: Terry Nelson MD Anesthesia: IV sedation with local anesthetic EBL: None Indications: Sara is a 74-year-old white female presented to the orthopedic clinics with complaints of locking and catching of her right ring finger. She indicated that it was painful and oftentimes had to manually straighten her finger back out again. On clinical exam she had a palpable nodule around the A1 renato of her right ring finger. It is tender to palpation. Patient had tried conservative measures in the past without any success. Therefore, at this time she was offered a right ring finger trigger release. All risk benefits treatment alternatives were discussed with her and she is agreeable to this at this time. Procedure: After obtaining her consent patient was taken to the operating room and while still on her hospital [facility] had IV sedation yesterday. Arm table was applied to the [facility] and right arm was prepped and draped in usual fashion. After surgical timeout hand was exsanguinated with the Esmarch wrap and the Esmarch was used as a tourniquet about mid forearm. Half percent Marcaine was injected into the surgical site at the base of the ring finger. Once good anesthetic effect was achieved incision was made over the flexor tendon of the right ring finger of the distal palmar crease. Sharp dissection taken on down to subcutaneous level. After this with blunt sharp dissection with small tenotomy scissors the tendon sheath was identified. A1 renato was visualized and divided longitudinally with a #15 blade. The remainder of the division of this was done with tenotomy scissors both proximally and distally. Under direct visualization flexor tendon was moved through range of motion demonstrating no further triggering. Bone was then closed with a 4-0 nylon horizontal mattress sutures. Esmarch was removed. Wounds were dressed with Xeroform gauze, sterile gauze dressing, Kerlix wrap, and an José Miguel wrap for compression. Patient was awakened transferred to cover room in stable condition
--- NOTE | 2025-01-11 09:00 | ANE.PACU2 ---
Inpatient post-anesthesia follow up: Airway intact: Yes Vital signs: Temperature 97 F Pulse Rate 50 Respiratory Rate 18 Blood Pressure 143/79 Pulse Oximetry 98 Oxygen Delivery Me thod Room Air Oxygen Flow Rate Fraction of Inspir ed Oxygen Hydration adequate: Yes Nausea and vomiting: No Pain level: 1 Mental status: Baseline
== END | disposition home or self-care (01) ==
PROVIDERS: PCP Family Medicine; Visit Provider Orthopaedic Surgery
PROC: (CPT 26055; principal; 2025-01-11 07:00)
DX: M65.341 Trigger finger, right ring finger (principal); K21.9 Gastro-esophageal reflux disease without esophagitis; E78.5 Hyperlipidemia, unspecified; I10 Essential (primary) hypertension; Z86.73 Personal history of transient ischemic attack (TIA), and cerebral infarction without residual deficits; Z79.02 Long term (current) use of antithrombotics/antiplatelets; Z79.899 Other long term (current) drug therapy; Z88.8 Allergy status to other drugs, medicaments and biological substances; Z79.82 Long term (current) use of aspirin
CPT/HCPCS: 26055; J0690; J2250; J2704; J3010; J3490; J7030

== ENCOUNTER → 2025-01-23 12:55 | Outpatient (BNVA) | payer MEDICARE, OTHER, SELFPAY | PROVIDERS: PCP Family Medicine; Visit Provider Orthopaedic Surgery | DX: Z98.890 Other specified postprocedural states (principal) | CPT/HCPCS: 99024 ==

== ENCOUNTER 2025-03-27 20:00 | Outpatient (CLI) | payer MEDICARE, OTHER, SELFPAY | END 2025-03-27 20:01 | disposition home or self-care (01) | LOC: SLEEP 21:36 | PROVIDERS: PCP Family Medicine; Visit Provider Internal Medicine Pulmonary Disease | DX: G47.33 Obstructive sleep apnea (adult) (pediatric) (principal) | CPT/HCPCS: 95810 ==